=== PATIENT | female | born 1960 | race Caucasian/White ===

== ENCOUNTER 2019-12-01 17:03 | Emergency (ER) | payer MEDICAID, OTHER ==
[~2019-12-01] VITALS: Ht 172.7 cm; Wt 60.9 kg
[2019-12-01] MEDS ORDERED: ketorolac tromethamine 15mg/ml inj. IV ONE (18:55)
[2019-12-01] MEDS ORDERED: normal saline 1000ML IV soln IVB ONE (18:55)
[2019-12-01 19:43] LABS: BASOPHILS # (AUTO) 0.1 X10'3 (0-0.2); BASOPHILS % (AUTO) 1.1 % (0-1); EOSINOPHILS # (AUTO) 0.1 X10'3 (0-0.9); EOSINOPHILS % (AUTO) 1.3 % (0-6); HEMATOCRIT 38.4 % (35.0-45.0); HEMOGLOBIN 13.5 g/dl (12.0-16.0); LYMPHOCYTES # (AUTO) 0.9 X10'3 (1.1-4.8); LYMPHOCYTES % (AUTO) 16.4 % (21-51); MEAN CORPUSCULAR HGB CONC 35.2 g/dL (33.0-36.5); MEAN CORPUSCULAR VOLUME 93.8 FL (78-98); MEAN PLATELET VOLUME 6.7 FL (7.4-10.4); MONOCYTES # (AUTO) 0.8 X10'3 (0-0.9); MONOCYTES % (AUTO) 14.1 % (2-12); NEUTROPHILS # (AUTO) 3.7 X10'3 (1.8-7.7); NEUTROPHILS % (AUTO) 67.1 % (42-75); PLATELET COUNT 239 X10'3 (140-440); RED CELL DISTRIBUTION WIDTH 14.8 % (11.5-14.5); WHITE BLOOD COUNT 5.5 X10'3 (4.5-11.0)
[2019-12-01 19:55] LABS: ALANINE AMINOTRANSFERASE 73 U/L (12-78); ALBUMIN 2.6 G/DL (3.4-5.0); ALBUMIN/GLOBULIN RATIO 0.7 (1.1-1.5); ALKALINE PHOSPHATASE 156 IU/L (46-116); ANION GAP 9 (8-16); ASPARTATE AMINO TRANSFERASE 127 U/L (10-37); BILIRUBIN,TOTAL 2.7 MG/DL (0.1-1.0); BLOOD UREA NITROGEN 18 MG/DL (7-18); BUN/CREATININE RATIO 25.7 (6.6-38.0); CALCIUM 9.7 MG/DL (8.5-10.1); CHLORIDE 99 MMOL/L (99-107); GLUCOSE 118 MG/DL (70-104); POTASSIUM 4.3 MMOL/L (3.5-5.1); SODIUM 132 MMOL/L (135-145); TOTAL CARBON DIOXIDE 23.8 MMOL/L (24-32); TOTAL PROTEIN 6.4 G/DL (6.4-8.2); eGFR 85 ML/MIN
--- NOTE | 2019-12-01 20:24 | NUR ---
ATTEMPTED TO OBTAIN PT URINE SAMPLE. PT UNABLE TO VOID. WILL TRY AGAIN LATER.
[2019-12-01] MEDS ORDERED: HYDROcodone/acetaminophen 5mg/325mg tablet PO ONE (20:45)
[2019-12-01 21:16] LABS: CLARITY,URINE CLEAR (Clear); COLOR,URINE YELLOW (Yellow); GLUCOSE, URINE NEGATIVE (Neg); KETONES,URINE TRACE mg/dl (Neg); LEUKOCYTE ESTERASE ,URINE NEGATIVE (Neg); OCCULT BLOOD,URINE NEGATIVE (Neg); PH,URINE 5.5 (4.8-8.0); PROTEIN,URINE NEGATIVE (Neg); UROBILINOGEN,URINE 0.2 E.U/dL (0.2-1.0)
[2019-12-01 21:27] LABS: UA COLLECTION TYPE STRAIGHT CATH
[2019-12-01 21:28] LABS: NITRITES, URINE NEGATIVE (Neg)
[2019-12-01] MEDS ORDERED: LIDOcaine 1% w/epiNEPHrine 1:200,000 30ml vial IM ONE (21:55)
[2019-12-01 22:32] VITALS: BP 113/40
[2019-12-01] MEDS ORDERED: HYDR-3965 PO (22:52)
[2019-12-01] MEDS ORDERED: CLOT15CR5 TOP (22:52)
== END 2019-12-01 23:10 | disposition home or self-care (01) ==
LOC: ER 17:04
DX: K70.31 Alcoholic cirrhosis of liver with ascites (principal); F10.99 Alcohol use, unspecified with unspecified alcohol-induced disorder; Z79.899 Other long term (current) drug therapy; Y90.9 Presence of alcohol in blood, level not specified
CPT/HCPCS: 36415; 49083; 71045; 80053; 81003; 85025; 96374; 99285; J1885; J7030

== ENCOUNTER 2019-12-15 18:07 | Emergency (ER) | payer MEDICAID, OTHER ==
[~2019-12-15] VITALS: Ht 172.7 cm; Wt 65.0 kg
[~2019-12-15 18:07] MED LIST: CLOT15CR5 TOP
[2019-12-15] MEDS ORDERED: LIDOcaine 1% w/epiNEPHrine 1:200,000 30ml vial SQ ONE (18:50)
--- NOTE | 2019-12-15 19:54 | NUR ---
Dr Jerry did a paracentesis to right side of abdomen under ultrasound and currently first bottle is draining. The patient however has constantly complained about wanting to lay flat, not sit up a little bit, it was draining pretty good. but I layed her down.
--- NOTE | 2019-12-15 20:00 | NUR ---
Pt's is lying flat in [facility]. She is currently undergoing a paracentesis. She has stopped draining. Pt requesting norco for her pain.
--- NOTE | 2019-12-15 20:13 | NUR ---
Dr. garcia in room to see pt. Discontinued paracentesis tubing. Insertion site clear of any s/s of infection. No continuous drainage noted. Bandaid placed over site per Dr. Donald orders. Pt tolerated well. She is now sitting at highfowlers position. No s/s of respiratory distress.
[2019-12-15 20:15] VITALS: BP 108/60
[2019-12-15] MEDS ORDERED: oxyCODONE IR 5mg (immed. release) tablet PO ONE (20:20)
== END 2019-12-15 20:34 | disposition home or self-care (01) ==
LOC: ER 18:07
DX: K70.31 Alcoholic cirrhosis of liver with ascites (principal); R22.43 Localized swelling, mass and lump, lower limb, bilateral; Z79.899 Other long term (current) drug therapy; Z72.89 Other problems related to lifestyle
CPT/HCPCS: 49083; 99285

== ENCOUNTER 2020-01-06 15:08 | Inpatient (IN) | payer MEDICAID ==
[~2020-01-06] VITALS: Ht 172.7 cm; Wt 77.3 kg
[~2020-01-06 15:08] MED LIST changes: -CLOT15CR5 TOP; +CLOT30CR TOP; +FURO20TA4 PO; +LACT10SO57 PO; +LEVO25TA7 PO
[2020-01-06] MEDS ORDERED: CefTRIAXone/D5W-Rocephin 1gm 50 ML IV ONE (15:35)
[2020-01-06 15:59] LABS: BASOPHILS % (AUTO) 0.5 % (0-1); EOSINOPHILS % (AUTO) 0.6 % (0-6); HEMATOCRIT 33.2 % (35.0-45.0); HEMOGLOBIN 11.5 g/dl (12.0-16.0); LYMPHOCYTES % (AUTO) 15.4 % (21-51); MEAN CORPUSCULAR HEMOGLOBIN 32.2 PG (27.0-31.0); MEAN CORPUSCULAR HGB CONC 34.7 g/dL (33.0-36.5); MEAN CORPUSCULAR VOLUME 92.8 FL (78-98); MONOCYTES # (AUTO) 1.2 X10'3 (0-0.9); MONOCYTES % (AUTO) 19.2 % (2-12); NEUTROPHILS # (AUTO) 4.1 X10'3 (1.8-7.7); NEUTROPHILS % (AUTO) 64.3 % (42-75); PLATELET COUNT 247 X10'3 (140-440); RED BLOOD COUNT 3.57 X10'6 (4.20-5.60); RED CELL DISTRIBUTION WIDTH 14.9 % (11.5-14.5); WHITE BLOOD COUNT 6.4 X10'3 (4.5-11.0)
[2020-01-06 16:04] LABS: CLARITY,URINE CLOUDY (Clear); COLOR,URINE YELLOW (Yellow); GLUCOSE, URINE NEGATIVE (Neg); KETONES,URINE TRACE mg/dl (Neg); LEUKOCYTE ESTERASE ,URINE NEGATIVE (Neg); NITRITES, URINE NEGATIVE (Neg); OCCULT BLOOD,URINE NEGATIVE (Neg); PROTEIN,URINE NEGATIVE (Neg); UA COLLECTION TYPE STRAIGHT CATH
[2020-01-06 16:05] LABS: PARTIAL THROMBOPLASTIN TIME 30 SECONDS (22-32)
[2020-01-06 16:11] LABS: BACTERIA,URINE FEW /HPF (Neg); MUCUS STRANDS MODERATE /LPF (Neg); RBC,URINE NONE SEEN /HPF (0-2); SQUAMOUS EPITHELIAL CELL,UR FEW /LPF (FEW); URIC ACID CRYSTALS 2+ /HPF (NEGATIVE); WBC CLUMPS,URINE FEW /HPF (NEGATIVE)
[2020-01-06 16:17] LABS: ALANINE AMINOTRANSFERASE 51 U/L (12-78); ALBUMIN 2.1 G/DL (3.4-5.0); ALBUMIN/GLOBULIN RATIO 0.5 (1.1-1.5); ALKALINE PHOSPHATASE 164 IU/L (46-116); ANION GAP 6 (8-16); ASPARTATE AMINO TRANSFERASE 81 U/L (10-37); BILIRUBIN,TOTAL 2.3 MG/DL (0.1-1.0); BLOOD UREA NITROGEN 28 MG/DL (7-18); BUN/CREATININE RATIO 43.8 (6.6-38.0); CALCIUM 8.2 MG/DL (8.5-10.1); CHLORIDE 101 MMOL/L (99-107); CREATININE 0.64 MG/DL (0.40-0.90); GLUCOSE 107 MG/DL (70-104); SODIUM 130 MMOL/L (135-145); TOTAL CARBON DIOXIDE 23.4 MMOL/L (24-32); eGFR > 90 ML/MIN
[2020-01-06] MEDS ORDERED: lactulose 20gm/30ml cup PO ONE (16:25)
[2020-01-06] MEDS ORDERED: normal saline 1000ML IV soln IVB ONE (16:25)
--- NOTE | 2020-01-06 17:18 | NUR ---
Pt altered and refusing to take the lactulose. Provider informed.
--- NOTE | 2020-01-06 17:26 | NUR ---
vasc at bedside
--- NOTE | 2020-01-06 17:37 | NUR ---
Pt stepmother (Marleen) called. Pt has been living at her residence. Marleen states that she will be out of town for the next 3 weeks so the Pt cant come back to the residence. I asked Marleen if she could return when she returned from vacation. Marleen stated "No, I just cant do this anymore". Provider Tayla informed. I informed Marleen that Structural Iron[employer] may wish to contact her for details and she provided her number. Marleen [phone]
[2020-01-06] MEDS ORDERED: LEVO50TA8 PO (18:45)
[2020-01-06] MEDS ORDERED: magnesium 2GM in 50ml NS 50 ML IV PRN (19:45)
[2020-01-06] MEDS ORDERED: haloperidol 5mg tablet PO PRN ×2 (19:45)
[2020-01-06] MEDS ORDERED: haloperidol lactate 5mg/ml inj IM PRN ×3 (19:45)
[2020-01-06] MEDS ORDERED: magnesium hydroxide 30ml (MOM) UD suspension PO PRN (19:45)
[2020-01-06] MEDS ORDERED: magnesium Cl slow-release 64mg tablet PO PRN (19:45)
[2020-01-06] MEDS ORDERED: magnesium 4gm in 100ml NS 100 ML IV PRN (19:45)
[2020-01-06] MEDS ORDERED: ondansetron/PF 4mg/2ml inj IV PRN (19:45)
[2020-01-06] MEDS ORDERED: dextrose 50%-water 50ml dispensing syringe IV PRN ×3 (19:45)
[2020-01-06] MEDS ORDERED: potassium Cl 20 mEq SR tablet PO PRN ×2 (19:45)
[2020-01-06] MEDS ORDERED: potassium CL 10mEq/100ml bag 100 ML IV PRN ×2 (19:45)
[2020-01-06] MEDS ORDERED: LORazepam 2 mg/ml vial IV PRN ×4 (19:45)
[2020-01-06] MEDS ORDERED: mag hydrox/Alum hydrox/simeth 30ml oral suspension PO PRN (19:45)
[2020-01-06] MEDS ORDERED: LORazepam 1 MG tablet PO PRN (19:45)
[2020-01-06] MEDS ORDERED: thiamine 100mg/ml 2ml inj. IV ONE ×3 (19:45)
[2020-01-06] MEDS: K and/or MAG REPLACEMENT MC SCH (20:11)
[2020-01-06 22:00] VITALS: BP 127/80
--- NOTE | 2020-01-06 22:00 | NUR ---
RECEIVED PT FROM ER FOLLOWING VERBAL REPORT FROM KYA. ASSUMED CARE OF PT. PT ORIENTED TO HERSELF AND PLACE AT THIS TIME. PT REPEATEDLY STATES THAT SHE WANTS TO GO HOME AND THEN SHE WILL STATE THAT SHE WANTS TO STAY. TABS ALARM IN PLACE. MULTIPLE ABRASIONS AND OPEN AREAS TO BODY, SEE PICTURES IN THE CHART AND PHYSICAL ASSESSMENT FOR DESCRIPTION. VSS
[2020-01-07] MEDS: lactulose 20gm/30ml cup PO SCH ×3 (00:10→19:38)
--- NOTE | 2020-01-07 06:24 | NUR ---
Problems reprioritized. Patient report given, questions answered & plan of care reviewed with BEVERLY.
[2020-01-07 07:11] VITALS: BP 110/66
[2020-01-07] MEDS: K and/or MAG REPLACEMENT MC SCH ×2 (08:00→19:14)
[2020-01-07] MEDS: furosemide 40mg/4ml inj IV SCH ×2 (08:02→19:37)
[2020-01-07] MEDS: levoTHYROXINE 25mcg tablet PO SCH (08:02)
[2020-01-07] MEDS: folic acid 1mg tablet PO SCH (08:02)
[2020-01-07] MEDS: CefTRIAXone/D5W-Rocephin 1gm 50 ML IV SCH (08:02)
[2020-01-07] MEDS: thiamine 100mg tablet PO SCH (08:02)
[2020-01-07 08:47] LABS: BASOPHILS % (AUTO) 0.6 % (0-1); EOSINOPHILS # (AUTO) 0.1 X10'3 (0-0.9); EOSINOPHILS % (AUTO) 1.1 % (0-6); HEMATOCRIT 32.3 % (35.0-45.0); HEMOGLOBIN 11.5 g/dl (12.0-16.0); LYMPHOCYTES # (AUTO) 0.8 X10'3 (1.1-4.8); LYMPHOCYTES % (AUTO) 14.5 % (21-51); MEAN CORPUSCULAR HEMOGLOBIN 33.2 PG (27.0-31.0); MEAN CORPUSCULAR HGB CONC 35.6 g/dL (33.0-36.5); MEAN CORPUSCULAR VOLUME 93.4 FL (78-98); MEAN PLATELET VOLUME 6.7 FL (7.4-10.4); MONOCYTES # (AUTO) 1.1 X10'3 (0-0.9); MONOCYTES % (AUTO) 19.9 % (2-12); NEUTROPHILS # (AUTO) 3.5 X10'3 (1.8-7.7); NEUTROPHILS % (AUTO) 63.9 % (42-75); PLATELET COUNT 255 X10'3 (140-440); RED BLOOD COUNT 3.45 X10'6 (4.20-5.60); RED CELL DISTRIBUTION WIDTH 14.7 % (11.5-14.5); WHITE BLOOD COUNT 5.4 X10'3 (4.5-11.0)
[2020-01-07 10:00] VITALS: BP 110/66
[2020-01-07 10:13] LABS: PLATELET ESTIMATE NORMAL; TOTAL CELLS COUNTED 100
[2020-01-07 10:29] LABS: ALANINE AMINOTRANSFERASE 53 U/L (12-78); ALBUMIN 2.1 G/DL (3.4-5.0); ALBUMIN/GLOBULIN RATIO 0.5 (1.1-1.5); ALKALINE PHOSPHATASE 126 IU/L (46-116); ANION GAP 8 (8-16); ASPARTATE AMINO TRANSFERASE 82 U/L (10-37); BLOOD UREA NITROGEN 27 MG/DL (7-18); BUN/CREATININE RATIO 31.4 (6.6-38.0); CALCIUM 8.6 MG/DL (8.5-10.1); CHLORIDE 101 MMOL/L (99-107); CREATININE 0.86 MG/DL (0.40-0.90); ETHANOL < 0.010 GM/DL (0.0-0.010); GLUCOSE 144 MG/DL (70-104); MAGNESIUM 1.9 MG/DL (1.5-2.4); PHOSPHORUS 2.7 MG/DL (2.3-4.5); POTASSIUM 4.6 MMOL/L (3.5-5.1); SODIUM 131 MMOL/L (135-145); TOTAL CARBON DIOXIDE 22.5 MMOL/L (24-32); eGFR 67 ML/MIN
[2020-01-07 12:30] LABS: URINE AMPHETAMINE SCREEN NEGATIVE (Neg); URINE BARBITUATE SCREEN NEGATIVE (Neg); URINE BENZODIAZEPINES SCREEN NEGATIVE (Neg); URINE CANNABINOID SCREEN NEGATIVE (Neg); URINE COCAINE SCREEN NEGATIVE (Neg); URINE METHADONE SCREEN NEGATIVE (Neg); URINE OPIATE SCREEN NEGATIVE (Neg); URINE PHENCYCLIDINE SCREEN NEGATIVE (Neg)
--- NOTE | 2020-01-07 14:25 | NUR ---
Malnutrition Consult: Pt admit w/ ALOC AOx2 hx etoh abuse and recently left AMA 01/02 per MD note. Hx previous spontaneous bacterial peritonitis not compliant w/ meds and DX hepatic encephalopathy, ascites, and LE cellulitis per MD note. Pt receiving lactulose and WO reports pt refused wound assessments but only scabs abrasions present to chest/legs. Pt PO 100% clear liquids so fat this admit and PO 75% avg last week admit in addition to no significant wt loss hx present at this time. Receiving thiamin, folic for etoh. Given good PO and no wt loss hx pt does not meet minimum malnutrition criteria at this time. Will continue to monitor. Addendum: 01/07/20 at [address] Amended: Links added.
[2020-01-07] MEDS ORDERED: lactulose 20gm/30ml cup PO SCH (16:00)
[2020-01-07 18:14] VITALS: BP 116/84
[2020-01-07] MEDS: rifaximin 550mg tablet PO SCH (19:37)
--- NOTE | 2020-01-07 22:24 | NUR ---
report given to aparna Liz.
--- NOTE | 2020-01-07 22:48 | NUR ---
RECEIVED PATIENT FROM DAYNA ALEXANDER AND ASSUMED PATIENT CARE
[2020-01-08 06:00] VITALS: BP 101/64
--- NOTE | 2020-01-08 06:30 | NUR ---
REPORT GIVEN TO SHAHAB ALEXANDER
--- NOTE | 2020-01-08 07:00 | NUR ---
Patient in room ORTHO 4022A. I have received report from BENJAMIN Liz and had the opportunity to ask questions and assume patient care.
[2020-01-08 07:24] LABS: BASOPHILS # (AUTO) 0.1 X10'3 (0-0.2); BASOPHILS % (AUTO) 0.9 % (0-1); EOSINOPHILS # (AUTO) 0.1 X10'3 (0-0.9); EOSINOPHILS % (AUTO) 1.6 % (0-6); HEMATOCRIT 31.6 % (35.0-45.0); LYMPHOCYTES % (AUTO) 17.1 % (21-51); MEAN CORPUSCULAR HEMOGLOBIN 32.4 PG (27.0-31.0); MEAN CORPUSCULAR HGB CONC 34.8 g/dL (33.0-36.5); MEAN CORPUSCULAR VOLUME 93.1 FL (78-98); MEAN PLATELET VOLUME 6.8 FL (7.4-10.4); MONOCYTES # (AUTO) 1.3 X10'3 (0-0.9); MONOCYTES % (AUTO) 23.1 % (2-12); NEUTROPHILS # (AUTO) 3.3 X10'3 (1.8-7.7); NEUTROPHILS % (AUTO) 57.3 % (42-75); PLATELET COUNT 254 X10'3 (140-440); RED BLOOD COUNT 3.39 X10'6 (4.20-5.60); RED CELL DISTRIBUTION WIDTH 15.1 % (11.5-14.5); WHITE BLOOD COUNT 5.8 X10'3 (4.5-11.0)
[2020-01-08] MEDS: folic acid 1mg tablet PO SCH (07:47)
[2020-01-08] MEDS: lactulose 20gm/30ml cup PO SCH ×2 (07:47→20:13)
[2020-01-08] MEDS: levoTHYROXINE 25mcg tablet PO SCH (07:50)
[2020-01-08] MEDS: propranolol 10mg tablet PO SCH ×2 (07:51→20:00)
[2020-01-08] MEDS: thiamine 100mg tablet PO SCH (07:52)
[2020-01-08 07:53] LABS: ALANINE AMINOTRANSFERASE 53 U/L (12-78); ALBUMIN 2.1 G/DL (3.4-5.0); ALBUMIN/GLOBULIN RATIO 0.6 (1.1-1.5); ALKALINE PHOSPHATASE 139 IU/L (46-116); ANION GAP 7 (8-16); ASPARTATE AMINO TRANSFERASE 81 U/L (10-37); BILIRUBIN,TOTAL 2.1 MG/DL (0.1-1.0); BLOOD UREA NITROGEN 26 MG/DL (7-18); BUN/CREATININE RATIO 30.2 (6.6-38.0); CHLORIDE 101 MMOL/L (99-107); CREATININE 0.86 MG/DL (0.40-0.90); GLUCOSE 92 MG/DL (70-104); MAGNESIUM 1.9 MG/DL (1.5-2.4); PHOSPHORUS 3.2 MG/DL (2.3-4.5); POTASSIUM 4.2 MMOL/L (3.5-5.1); SODIUM 133 MMOL/L (135-145); TOTAL CARBON DIOXIDE 25.3 MMOL/L (24-32); TOTAL PROTEIN 5.9 G/DL (6.4-8.2); eGFR 67 ML/MIN
[2020-01-08] MEDS: spironolactone 25 MG tablet PO SCH (07:53)
[2020-01-08] MEDS: heparin, porcine 5000 units/ml vial SQ SCH ×2 (07:53→20:14)
[2020-01-08] MEDS: K and/or MAG REPLACEMENT MC SCH ×2 (08:00→18:59)
[2020-01-08] MEDS: furosemide 40mg/4ml inj IV SCH ×2 (08:00→20:13)
[2020-01-08] MEDS: CefTRIAXone/D5W-Rocephin 1gm 50 ML IV SCH (08:02)
[2020-01-08] MEDS: rifaximin 550mg tablet PO SCH ×2 (08:08→20:13)
[2020-01-08 09:29] LABS: PLATELET ESTIMATE NORMAL; TOTAL CELLS COUNTED 100
[2020-01-08 09:32] LABS: BURR CELLS FEW; SCHISTOCYTES FEW
[2020-01-08 10:00] VITALS: BP 103/74
[2020-01-08 10:25] VITALS: BP 103/74
[2020-01-08 10:45] VITALS: BP 99/68
[2020-01-08] MEDS ORDERED: normal saline 1000ml 1,000 ML IVB ONE (11:03)
[2020-01-08 12:03] LABS: GLUCOSE,BODY FLUID 136 MG/DL; LDH,BODY FLUID 38 U/L
[2020-01-08 12:09] LABS: BF RBC COUNT 68 /CU MM; BF WBC COUNT 74 /CU MM (0-1000); BFAPPEAR HAZY; BFCOLOR YELLOW; BFVOLUME 48 ML; LYMPHOCYTES,BODY FLUID 90 %; MONOCYTES,BODY FLUID 4 %; NEUTROPHILS,BODY FLUID 6 %
[2020-01-08 12:11] LABS: BF MESOTHELIAL CELLS MODERATE
[2020-01-08 12:12] LABS: TOTAL PROTEIN,BODY FLUID < 2.0 G/DL
[2020-01-08 12:13] LABS: ALBUMIN,BODY FLUID < 0.6 G/DL
[2020-01-08 18:00] VITALS: BP 105/69
--- NOTE | 2020-01-08 18:31 | NUR ---
Problems reprioritized. Patient report given, questions answered & plan of care reviewed with BENJAMIN MCINTOSH.
--- NOTE | 2020-01-08 18:36 | NUR ---
REPORT REC'D FROM BENJAMIN GUDINO.
[2020-01-08] MEDS ORDERED: LORazepam 1 MG tablet PO PRN (19:45)
[2020-01-08] MEDS ORDERED: LORazepam 2 mg/ml vial IV PRN (19:45)
[2020-01-08] MEDS: lactobacillus rhamnosus 10,000 MMU CELLS/CAPSULE PO SCH (20:13)
--- NOTE | 2020-01-08 20:25 | NUR ---
BP IS LOW 105/69 CLOSE TO PARAMETER; GIVING LASIX ALSO , SO WILL HOLD THE PROPRANOLOL UNTIL FURTHER MONITOR AT 2200.
[2020-01-08 22:00] VITALS: BP 103/74
--- NOTE | 2020-01-08 23:41 | NUR ---
PT MOVED TO RM 4021A, PT WAS REPORTING THAT HER STRAW PURSE WAS MISSING. STAFF LOOKED IN ALL DRAWERS AND BEDSIDE TABLE, CLOSET, ETC. AND COULD NOT FIND IT. STAFF CALLED SECURITY HOLD AND THERE WAS NO ITEMS IN SECURITY HOLD. ADMISSION DOCUMENTATION STATES THAT SHE HAD A WALLET WITH $208 AND A CELL PHONE. CLARIFYING WITH ANOTHER RN THAT PT DID HAVE THESE ITEMS AND REFUSED TO ALLOW THEM TO BE KEPT IN SECURITY HOLD.
--- NOTE | 2020-01-08 23:46 | NUR ---
PT ITEMS ARE FOUND, PT WAS SITTING ON HER PURSE FOR SAFE KEEPING, ALL ITEMS ARE IN THE PURSE, THE WALLET WAS OPENED IN FRONT OF HER AND TWO [employer] SERGEANT'S WITH RN COUNTED THE MONEY AND IT IS ALL THERE. PT STILL REFUSES TO ALLOW ITEMS TO BE KEPT IN SECURITY HOLD.
[2020-01-09 06:00] VITALS: BP 112/56
--- NOTE | 2020-01-09 06:34 | NUR ---
REPORT GIVEN TO BENJAMIN MARIE,.
[2020-01-09 06:48] LABS: BASOPHILS # (AUTO) 0.1 X10'3 (0-0.2); BASOPHILS % (AUTO) 1.2 % (0-1); EOSINOPHILS # (AUTO) 0.1 X10'3 (0-0.9); EOSINOPHILS % (AUTO) 1.9 % (0-6); HEMATOCRIT 30.6 % (35.0-45.0); HEMOGLOBIN 10.6 g/dl (12.0-16.0); LYMPHOCYTES % (AUTO) 17.2 % (21-51); MEAN CORPUSCULAR HEMOGLOBIN 32.4 PG (27.0-31.0); MEAN CORPUSCULAR HGB CONC 34.6 g/dL (33.0-36.5); MEAN CORPUSCULAR VOLUME 93.7 FL (78-98); MEAN PLATELET VOLUME 6.5 FL (7.4-10.4); MONOCYTES # (AUTO) 1.4 X10'3 (0-0.9); MONOCYTES % (AUTO) 24.2 % (2-12); NEUTROPHILS # (AUTO) 3.1 X10'3 (1.8-7.7); NEUTROPHILS % (AUTO) 55.5 % (42-75); PLATELET COUNT 243 X10'3 (140-440); RED BLOOD COUNT 3.26 X10'6 (4.20-5.60); RED CELL DISTRIBUTION WIDTH 15.4 % (11.5-14.5); WHITE BLOOD COUNT 5.6 X10'3 (4.5-11.0)
[2020-01-09 06:54] LABS: ALANINE AMINOTRANSFERASE 49 U/L (12-78); ALBUMIN 2.1 G/DL (3.4-5.0); ALBUMIN/GLOBULIN RATIO 0.6 (1.1-1.5); ALKALINE PHOSPHATASE 180 IU/L (46-116); ANION GAP 5 (8-16); ASPARTATE AMINO TRANSFERASE 78 U/L (10-37); BILIRUBIN,TOTAL 2.2 MG/DL (0.1-1.0); BLOOD UREA NITROGEN 28 MG/DL (7-18); BUN/CREATININE RATIO 36.8 (6.6-38.0); CHLORIDE 101 MMOL/L (99-107); CREATININE 0.76 MG/DL (0.40-0.90); GLUCOSE 92 MG/DL (70-104); MAGNESIUM 1.8 MG/DL (1.5-2.4); PHOSPHORUS 3.4 MG/DL (2.3-4.5); POTASSIUM 4.2 MMOL/L (3.5-5.1); SODIUM 131 MMOL/L (135-145); TOTAL CARBON DIOXIDE 25.5 MMOL/L (24-32); TOTAL PROTEIN 5.7 G/DL (6.4-8.2); eGFR 77 ML/MIN
[2020-01-09] MEDS: K and/or MAG REPLACEMENT MC SCH (08:00)
[2020-01-09] MEDS: CefTRIAXone/D5W-Rocephin 1gm 50 ML IV SCH (08:48)
[2020-01-09] MEDS: lactobacillus rhamnosus 10,000 MMU CELLS/CAPSULE PO SCH (08:50)
[2020-01-09] MEDS: lactulose 20gm/30ml cup PO SCH (08:50)
[2020-01-09] MEDS: folic acid 1mg tablet PO SCH (08:50)
[2020-01-09] MEDS: propranolol 10mg tablet PO SCH (08:52)
[2020-01-09] MEDS: thiamine 100mg tablet PO SCH (08:53)
[2020-01-09] MEDS: heparin, porcine 5000 units/ml vial SQ SCH (08:53)
[2020-01-09] MEDS: furosemide 40mg/4ml inj IV SCH (08:54)
[2020-01-09] MEDS: spironolactone 25 MG tablet PO SCH (08:54)
[2020-01-09] MEDS: rifaximin 550mg tablet PO SCH (08:59)
[2020-01-09] MEDS: levoTHYROXINE 25mcg tablet PO SCH (09:02)
[2020-01-09 10:00] VITALS: BP 116/39
--- NOTE | 2020-01-09 11:49 | NUR ---
Student documentation: I have reviewed all interventions, assessments performed and documented by Dalia Chatman. Student Medication Administration: For this medication-pass time frame, all medication were reviewed, dispensed, administered and documented per hospital policy by Dalia Chatman.
--- NOTE | 2020-01-09 11:59 | NUR ---
Patient in room ORTHO 4021. I have received report from and had the opportunity to ask questions and assume patient care.
--- NOTE | 2020-01-09 12:00 | NUR ---
Patient in room ORTHO 4021. I have received report from SN Gómez and had the opportunity to ask questions and assume patient care.
[2020-01-09] MEDS ORDERED: LACT10SO32 PO (13:00)
[2020-01-09] MEDS ORDERED: RIFA550T PO (13:00)
[2020-01-09] MEDS ORDERED: PROP10TA10 PO (13:00)
[2020-01-09] MEDS ORDERED: THIA50TA10 PO (13:00)
[2020-01-09] MEDS ORDERED: SPIR25TA PO (13:00)
[2020-01-09] MEDS ORDERED: LACT1CAP26 PO (13:00)
[2020-01-09] MEDS ORDERED: FOLI0.4T2 PO (13:00)
[2020-01-09] MEDS ORDERED: AMOX-580 PO (13:00)
[2020-01-09] MEDS ORDERED: FURO-150 PO (13:00)
[2020-01-09] MEDS ORDERED: ALBU8.5H8 INH (13:02)
--- NOTE | 2020-01-09 14:18 | NUR ---
told pt she is about to be discharged and pt states she's not ready, she wants to talk to social services coordinator again first. social services coordinator paged.
--- NOTE | 2020-01-09 15:39 | NUR ---
Reviewed discharge instructions and new medications with pt. Pt stated the education part of her discharge was "crap", and barely listened to discharge instructions. Pt states she needed more time to find somewhere to go after discharge, she has had all morning to find somewhere to go. She keeps trying to push back her discharge stating she has no where to go. Pt encouraged to go to [facility] if she is unable to stay with a friend or relative. RN will call elida for pt d/c.
--- NOTE | 2020-01-09 15:50 | NUR ---
yellow cab called for pt to [facility], ETA 30min-1hr.
[2020-01-10] MEDS ORDERED: LORazepam 1 MG tablet PO PRN (19:45)
[2020-01-10] MEDS ORDERED: LORazepam 2 mg/ml vial IV PRN (19:45)
== END 2020-01-09 16:15 | disposition home or self-care (01) | DRG 279 ==
LOC: ER 15:08 → ED HOLD 19:43 → ORTHO 4S 22:15
PROVIDERS: ADMIT Family Medicine; ATTEND Family Medicine
PROC: 0W9G3ZZ Drainage of Peritoneal Cavity, Percutaneous Approach (ICD-10-PCS; principal; 2020-01-08)
DX: K72.00 Acute and subacute hepatic failure without coma (principal); R18.8 Other ascites; K76.6 Portal hypertension; F10.20 Alcohol dependence, uncomplicated; K74.60 Unspecified cirrhosis of liver; L03.119 Cellulitis of unspecified part of limb; N39.0 Urinary tract infection, site not specified; Z91.19 Patient's noncompliance with other medical treatment and regimen; Z79.899 Other long term (current) drug therapy
CPT/HCPCS: 36415; 49083; 70450; 71045; 80053; 80305; 80320; 81001; 82042; 82140; 82945; 82948; 83605; 83615; 83735; 84100; 84145; 84157; 84443; 85025; 85610; 85730; 87040; 87070; 87081; 87088; 89051; 93005; 93922; 96365; 97116; 97161; 97530; 99285; G0378; J0696; J1644; J1940; J3411; J7030

== ENCOUNTER 2020-01-13 11:21 | Inpatient (IN) | payer MEDICAID ==
[~2020-01-13] VITALS: Ht 177.8 cm; Wt 64.8 kg
[~2020-01-13 11:21] MED LIST changes: +ALBU8.5H8 INH; +AMOX-580 PO; -CLOT30CR TOP; +FOLI0.4T2 PO; +FURO-150 PO; -FURO20TA4 PO; +LACT10SO32 PO; -LACT10SO57 PO; +LACT1CAP26 PO; -LEVO25TA7 PO; +LEVO50TA8 PO; +PROP10TA10 PO; +RIFA550T PO; +SPIR25TA PO; +THIA50TA10 PO
[2020-01-13 12:53] LABS: BASOPHILS # (AUTO) 0.1 X10'3 (0-0.2); BASOPHILS % (AUTO) 0.8 % (0-1); EOSINOPHILS # (AUTO) 0.1 X10'3 (0-0.9); EOSINOPHILS % (AUTO) 0.8 % (0-6); HEMATOCRIT 28.5 % (35.0-45.0); HEMOGLOBIN 9.9 g/dl (12.0-16.0); LYMPHOCYTES # (AUTO) 0.9 X10'3 (1.1-4.8); LYMPHOCYTES % (AUTO) 13.6 % (21-51); MEAN CORPUSCULAR HEMOGLOBIN 32.7 PG (27.0-31.0); MEAN CORPUSCULAR HGB CONC 34.8 g/dL (33.0-36.5); MEAN PLATELET VOLUME 6.9 FL (7.4-10.4); MONOCYTES # (AUTO) 1.1 X10'3 (0-0.9); MONOCYTES % (AUTO) 17.7 % (2-12); NEUTROPHILS # (AUTO) 4.4 X10'3 (1.8-7.7); NEUTROPHILS % (AUTO) 67.1 % (42-75); PLATELET COUNT 231 X10'3 (140-440); RED BLOOD COUNT 3.03 X10'6 (4.20-5.60); RED CELL DISTRIBUTION WIDTH 16.8 % (11.5-14.5); WHITE BLOOD COUNT 6.5 X10'3 (4.5-11.0)
[2020-01-13 13:06] LABS: ALANINE AMINOTRANSFERASE 56 U/L (12-78); ALBUMIN 2.1 G/DL (3.4-5.0); ALBUMIN/GLOBULIN RATIO 0.5 (1.1-1.5); ALKALINE PHOSPHATASE 233 IU/L (46-116); ANION GAP 6 (8-16); ASPARTATE AMINO TRANSFERASE 86 U/L (10-37); BILIRUBIN,TOTAL 1.8 MG/DL (0.1-1.0); BLOOD UREA NITROGEN 37 MG/DL (7-18); CALCIUM 8.2 MG/DL (8.5-10.1); CHLORIDE 101 MMOL/L (99-107); GLUCOSE 103 MG/DL (70-104); POTASSIUM 4.4 MMOL/L (3.5-5.1); SODIUM 132 MMOL/L (135-145); TOTAL CARBON DIOXIDE 25.1 MMOL/L (24-32); TOTAL PROTEIN 6.1 G/DL (6.4-8.2)
[2020-01-13 13:16] LABS: CREATININE 0.74 MG/DL (0.40-0.90); eGFR 80 ML/MIN
[2020-01-13 13:48] LABS: ETHANOL < 0.010 GM/DL (0.0-0.010)
[2020-01-13 14:33] LABS: CLARITY,URINE SLIGHTLY CLOUDY (Clear); COLOR,URINE YELLOW (Yellow); GLUCOSE, URINE NEGATIVE (Neg); KETONES,URINE NEGATIVE (Neg); LEUKOCYTE ESTERASE ,URINE NEGATIVE (Neg); NITRITES, URINE NEGATIVE (Neg); OCCULT BLOOD,URINE NEGATIVE (Neg); PROTEIN,URINE NEGATIVE (Neg); UROBILINOGEN,URINE 0.2 E.U/dL (0.2-1.0)
[2020-01-13 14:34] LABS: UA COLLECTION TYPE STRAIGHT CATH
[2020-01-13 14:40] LABS: BACTERIA,URINE FEW /HPF (Neg); CAL OXALATE CRYSTALS FEW /HPF (NEGATIVE); COARSE GRANULAR CAST 0-3 /LPF (NEGATIVE); MUCUS STRANDS FEW /LPF (Neg); RBC,URINE NONE SEEN /HPF (0-2); SQUAMOUS EPITHELIAL CELL,UR NONE SEEN /LPF (FEW); TRANSITIONAL EPI CELLS,URINE FEW /HPF; WBC CLUMPS,URINE FEW /HPF (NEGATIVE); YEAST MODERATE /HPF (NEGATIVE)
[2020-01-13 14:42] LABS: URINE AMPHETAMINE SCREEN NEGATIVE (Neg); URINE BARBITUATE SCREEN NEGATIVE (Neg); URINE BENZODIAZEPINES SCREEN NEGATIVE (Neg); URINE CANNABINOID SCREEN NEGATIVE (Neg); URINE COCAINE SCREEN NEGATIVE (Neg); URINE METHADONE SCREEN NEGATIVE (Neg); URINE OPIATE SCREEN NEGATIVE (Neg); URINE PHENCYCLIDINE SCREEN NEGATIVE (Neg)
[2020-01-13] MEDS ORDERED: ondansetron/PF 4mg/2ml inj IV PRN (15:20)
[2020-01-13] MEDS ORDERED: mag hydrox/Alum hydrox/simeth 30ml oral suspension PO PRN (15:20)
[2020-01-13] MEDS: normal saline 1000ml 1,000 ML IV SCH (16:00)
[2020-01-13] MEDS: lactulose 20gm/30ml cup PO SCH ×2 (16:01→20:32)
--- NOTE | 2020-01-13 16:45 | NUR ---
received report from aparna ron
[2020-01-13 17:05] VITALS: BP 115/80
[2020-01-13] MEDS ORDERED: albuterol 2.5 MG/3 ML nebule NEB PRN (17:20)
--- NOTE | 2020-01-13 18:28 | NUR ---
Gave report to BENJAMIN Ireland
[2020-01-13] MEDS: propranolol 10mg tablet PO SCH (20:32)
[2020-01-13] MEDS: rifaximin 550mg tablet PO SCH (20:32)
[2020-01-13 22:00] VITALS: BP 108/72
[2020-01-14] MEDS: normal saline 1000ml 1,000 ML IV SCH ×2 (01:19→13:05)
[2020-01-14] MEDS: lactulose 20gm/30ml cup PO SCH ×4 (01:43→19:44)
--- NOTE | 2020-01-14 06:43 | NUR ---
Problems reprioritized. Patient report given, questions answered & plan of care reviewed with BENJAMIN DAILEY.
[2020-01-14 07:07] VITALS: BP 84/49
[2020-01-14 07:15] LABS: BASOPHILS % (AUTO) 0.7 % (0-1); EOSINOPHILS # (AUTO) 0.2 X10'3 (0-0.9); EOSINOPHILS % (AUTO) 2.7 % (0-6); HEMATOCRIT 29.8 % (35.0-45.0); HEMOGLOBIN 10.3 g/dl (12.0-16.0); LYMPHOCYTES # (AUTO) 0.9 X10'3 (1.1-4.8); LYMPHOCYTES % (AUTO) 15.2 % (21-51); MEAN CORPUSCULAR HEMOGLOBIN 32.6 PG (27.0-31.0); MEAN CORPUSCULAR HGB CONC 34.5 g/dL (33.0-36.5); MEAN CORPUSCULAR VOLUME 94.4 FL (78-98); MEAN PLATELET VOLUME 7.1 FL (7.4-10.4); MONOCYTES # (AUTO) 1.2 X10'3 (0-0.9); MONOCYTES % (AUTO) 19.5 % (2-12); NEUTROPHILS # (AUTO) 3.7 X10'3 (1.8-7.7); NEUTROPHILS % (AUTO) 61.9 % (42-75); PLATELET COUNT 206 X10'3 (140-440); RED BLOOD COUNT 3.16 X10'6 (4.20-5.60)
[2020-01-14 07:20] LABS: ALANINE AMINOTRANSFERASE 50 U/L (12-78); ALBUMIN 1.8 G/DL (3.4-5.0); ALBUMIN/GLOBULIN RATIO 0.5 (1.1-1.5); ALKALINE PHOSPHATASE 148 IU/L (46-116); ANION GAP 6 (8-16); ASPARTATE AMINO TRANSFERASE 78 U/L (10-37); BILIRUBIN,TOTAL 1.7 MG/DL (0.1-1.0); BLOOD UREA NITROGEN 35 MG/DL (7-18); BUN/CREATININE RATIO 44.3 (6.6-38.0); CALCIUM 8.4 MG/DL (8.5-10.1); CHLORIDE 103 MMOL/L (99-107); CREATININE 0.79 MG/DL (0.40-0.90); GLUCOSE 109 MG/DL (70-104); POTASSIUM 4.2 MMOL/L (3.5-5.1); SODIUM 132 MMOL/L (135-145); TOTAL CARBON DIOXIDE 23.3 MMOL/L (24-32); TOTAL PROTEIN 5.4 G/DL (6.4-8.2); eGFR 74 ML/MIN
[2020-01-14] MEDS: propranolol 10mg tablet PO SCH ×2 (08:00→20:00)
[2020-01-14] MEDS: spironolactone 25 MG tablet PO SCH (08:27)
[2020-01-14] MEDS: levoTHYROXINE 25mcg tablet PO SCH (08:29)
[2020-01-14] MEDS: rifaximin 550mg tablet PO SCH ×2 (08:29→19:44)
[2020-01-14 09:18] LABS: TOTAL CELLS COUNTED 100
[2020-01-14 09:19] LABS: ANISOCYTOSIS 1+; PLATELET ESTIMATE NORMAL
[2020-01-14 11:30] VITALS: BP 111/69
[2020-01-14 12:00] VITALS: BP 96/56
[2020-01-14] MEDS ORDERED: albumin (human) 25% 100ml IV 100 ML IV ONE (12:10)
--- NOTE | 2020-01-14 16:16 | NUR ---
Mello consult: Mello 11. Pt admit w/ ALOC hx etoh abuse and hepatic encephalopathy recent admit less than one week ago. S/p paracentesis -6500ml removal. BMI 17 w/ current height 70in though majority prior admits 68in; likely true BMI 18.5 given new wt. Likely maintains stable low wt given hx though does fluctuate some w/ ascites. Pt pending WOC visible assessment this admit though recent admit 01/05 pt covered in scabs w/ no open wounds per WOC. SASKIA d/w RN regarding thiamin/folic/MVI per MD approval given etoh hx. Will continue to monitor. Addendum: 01/14/20 at [address] Amended: Links added.
[2020-01-14 18:00] VITALS: BP 111/76
--- NOTE | 2020-01-14 18:30 | NUR ---
Patient in room ORTHO 4018. I have received report from BENJAMIN DAILEY and had the opportunity to ask questions and assume patient care.
[2020-01-14] MEDS: lactobacillus rhamnosus 10,000 MMU CELLS/CAPSULE PO SCH (19:44)
[2020-01-14 22:00] VITALS: BP 95/58
[2020-01-15] MEDS: lactulose 20gm/30ml cup PO SCH ×4 (02:09→19:51)
--- NOTE | 2020-01-15 06:16 | NUR ---
Problems reprioritized. Patient report given, questions answered & plan of care reviewed with BENJAMIN DAILEY.
[2020-01-15 06:56] LABS: BASOPHILS # (AUTO) 0.1 X10'3 (0-0.2); BASOPHILS % (AUTO) 1.4 % (0-1); EOSINOPHILS # (AUTO) 0.2 X10'3 (0-0.9); EOSINOPHILS % (AUTO) 3.5 % (0-6); HEMATOCRIT 28.9 % (35.0-45.0); HEMOGLOBIN 10.2 g/dl (12.0-16.0); LYMPHOCYTES # (AUTO) 1.3 X10'3 (1.1-4.8); LYMPHOCYTES % (AUTO) 24.1 % (21-51); MEAN CORPUSCULAR HGB CONC 35.2 g/dL (33.0-36.5); MEAN CORPUSCULAR VOLUME 93.6 FL (78-98); MEAN PLATELET VOLUME 6.9 FL (7.4-10.4); MONOCYTES # (AUTO) 1.2 X10'3 (0-0.9); MONOCYTES % (AUTO) 22.6 % (2-12); NEUTROPHILS # (AUTO) 2.6 X10'3 (1.8-7.7); NEUTROPHILS % (AUTO) 48.4 % (42-75); PLATELET COUNT 188 X10'3 (140-440); RED BLOOD COUNT 3.09 X10'6 (4.20-5.60); WHITE BLOOD COUNT 5.4 X10'3 (4.5-11.0)
[2020-01-15 07:02] VITALS: BP 85/55
[2020-01-15 07:07] LABS: ALANINE AMINOTRANSFERASE 49 U/L (12-78); ALBUMIN 1.6 G/DL (3.4-5.0); ALBUMIN/GLOBULIN RATIO 0.5 (1.1-1.5); ALKALINE PHOSPHATASE 145 IU/L (46-116); ANION GAP 3 (8-16); ASPARTATE AMINO TRANSFERASE 78 U/L (10-37); BILIRUBIN,TOTAL 1.8 MG/DL (0.1-1.0); BLOOD UREA NITROGEN 27 MG/DL (7-18); CALCIUM 7.9 MG/DL (8.5-10.1); CHLORIDE 100 MMOL/L (99-107); CREATININE 0.71 MG/DL (0.40-0.90); GLUCOSE 86 MG/DL (70-104); POTASSIUM 4.2 MMOL/L (3.5-5.1); SODIUM 127 MMOL/L (135-145); eGFR 84 ML/MIN
[2020-01-15 07:45] LABS: ANISOCYTOSIS 1+; PLATELET ESTIMATE NORMAL; TOTAL CELLS COUNTED 100
[2020-01-15] MEDS: rifaximin 550mg tablet PO SCH ×2 (08:35→19:51)
[2020-01-15] MEDS: levoTHYROXINE 25mcg tablet PO SCH (08:35)
[2020-01-15] MEDS: lactobacillus rhamnosus 10,000 MMU CELLS/CAPSULE PO SCH ×2 (08:35→19:51)
[2020-01-15] MEDS: spironolactone 25 MG tablet PO SCH (08:35)
[2020-01-15] MEDS: propranolol 10mg tablet PO SCH ×2 (08:35→19:51)
[2020-01-15 10:00] VITALS: BP 119/65
[2020-01-15 18:00] VITALS: BP 93/60
[2020-01-15 21:54] VITALS: BP 96/59
[2020-01-16] MEDS: lactulose 20gm/30ml cup PO SCH ×4 (01:47→20:01)
[2020-01-16 05:48] LABS: BASOPHILS # (AUTO) 0.1 X10'3 (0-0.2); BASOPHILS % (AUTO) 1.4 % (0-1); EOSINOPHILS # (AUTO) 0.2 X10'3 (0-0.9); EOSINOPHILS % (AUTO) 3.5 % (0-6); HEMATOCRIT 30.2 % (35.0-45.0); HEMOGLOBIN 10.8 g/dl (12.0-16.0); LYMPHOCYTES # (AUTO) 1.4 X10'3 (1.1-4.8); LYMPHOCYTES % (AUTO) 21.6 % (21-51); MEAN CORPUSCULAR HEMOGLOBIN 33.5 PG (27.0-31.0); MEAN CORPUSCULAR HGB CONC 35.6 g/dL (33.0-36.5); MEAN CORPUSCULAR VOLUME 93.9 FL (78-98); MEAN PLATELET VOLUME 6.9 FL (7.4-10.4); MONOCYTES # (AUTO) 1.4 X10'3 (0-0.9); MONOCYTES % (AUTO) 22.1 % (2-12); NEUTROPHILS # (AUTO) 3.4 X10'3 (1.8-7.7); NEUTROPHILS % (AUTO) 51.4 % (42-75); PLATELET COUNT 189 X10'3 (140-440); RED BLOOD COUNT 3.22 X10'6 (4.20-5.60); WHITE BLOOD COUNT 6.6 X10'3 (4.5-11.0)
[2020-01-16 06:00] VITALS: BP 86/54
[2020-01-16 06:03] LABS: ALANINE AMINOTRANSFERASE 56 U/L (12-78); ALBUMIN 1.7 G/DL (3.4-5.0); ALBUMIN/GLOBULIN RATIO 0.5 (1.1-1.5); ALKALINE PHOSPHATASE 180 IU/L (46-116); ANION GAP 5 (8-16); ASPARTATE AMINO TRANSFERASE 87 U/L (10-37); BILIRUBIN,TOTAL 1.6 MG/DL (0.1-1.0); BLOOD UREA NITROGEN 26 MG/DL (7-18); BUN/CREATININE RATIO 35.6 (6.6-38.0); CHLORIDE 98 MMOL/L (99-107); CREATININE 0.73 MG/DL (0.40-0.90); GLUCOSE 93 MG/DL (70-104); POTASSIUM 4.4 MMOL/L (3.5-5.1); SODIUM 125 MMOL/L (135-145); TOTAL CARBON DIOXIDE 22.4 MMOL/L (24-32); TOTAL PROTEIN 5.2 G/DL (6.4-8.2); eGFR 81 ML/MIN
--- NOTE | 2020-01-16 06:13 | NUR ---
Problems reprioritized. Patient report given, questions answered & plan of care reviewed with BENJAMIN Porter.
--- NOTE | 2020-01-16 06:33 | NUR ---
Problems reprioritized. Patient report given, questions answered & plan of care reviewed with BENJAMIN Arciniega.
[2020-01-16] MEDS: propranolol 10mg tablet PO SCH ×2 (08:00→20:01)
[2020-01-16] MEDS: spironolactone 25 MG tablet PO SCH ×2 (08:30→08:49)
[2020-01-16] MEDS: lactobacillus rhamnosus 10,000 MMU CELLS/CAPSULE PO SCH ×2 (08:49→20:00)
[2020-01-16] MEDS: rifaximin 550mg tablet PO SCH ×2 (08:49→20:01)
[2020-01-16] MEDS: levoTHYROXINE 25mcg tablet PO SCH (08:49)
[2020-01-16 10:00] VITALS: BP 94/63
[2020-01-16] MEDS: magnesium hydroxide 30ml (MOM) UD suspension PO PRN (10:12)
[2020-01-16 18:00] VITALS: BP 108/72
--- NOTE | 2020-01-16 18:26 | NUR ---
Problems reprioritized. Patient report given, questions answered & plan of care reviewed with Yury ALEXANDER.
[2020-01-16 22:00] VITALS: BP 95/65
[2020-01-17] MEDS: lactulose 20gm/30ml cup PO SCH ×4 (00:49→17:40)
[2020-01-17 06:00] VITALS: BP 88/58
[2020-01-17 06:27] LABS: BASOPHILS # (AUTO) 0.1 X10'3 (0-0.2); BASOPHILS % (AUTO) 1.3 % (0-1); EOSINOPHILS # (AUTO) 0.2 X10'3 (0-0.9); EOSINOPHILS % (AUTO) 3.4 % (0-6); HEMATOCRIT 33.8 % (35.0-45.0); HEMOGLOBIN 11.9 g/dl (12.0-16.0); LYMPHOCYTES # (AUTO) 1.1 X10'3 (1.1-4.8); LYMPHOCYTES % (AUTO) 17.2 % (21-51); MEAN CORPUSCULAR HGB CONC 35.2 g/dL (33.0-36.5); MEAN CORPUSCULAR VOLUME 93.7 FL (78-98); MONOCYTES # (AUTO) 1.2 X10'3 (0-0.9); MONOCYTES % (AUTO) 19.6 % (2-12); NEUTROPHILS # (AUTO) 3.6 X10'3 (1.8-7.7); NEUTROPHILS % (AUTO) 58.5 % (42-75); PLATELET COUNT 208 X10'3 (140-440); WHITE BLOOD COUNT 6.2 X10'3 (4.5-11.0)
--- NOTE | 2020-01-17 06:33 | NUR ---
reported to days. noted pt needs placement or discharge assistance b/c she is homeless.
[2020-01-17 06:50] LABS: ALANINE AMINOTRANSFERASE 65 U/L (12-78); ALBUMIN 2.1 G/DL (3.4-5.0); ALBUMIN/GLOBULIN RATIO 0.5 (1.1-1.5); ALKALINE PHOSPHATASE 205 IU/L (46-116); ANION GAP 3 (8-16); ASPARTATE AMINO TRANSFERASE 99 U/L (10-37); BILIRUBIN,TOTAL 2.2 MG/DL (0.1-1.0); BLOOD UREA NITROGEN 26 MG/DL (7-18); BUN/CREATININE RATIO 34.7 (6.6-38.0); CALCIUM 8.1 MG/DL (8.5-10.1); CHLORIDE 95 MMOL/L (99-107); CREATININE 0.75 MG/DL (0.40-0.90); GLUCOSE 88 MG/DL (70-104); POTASSIUM 4.6 MMOL/L (3.5-5.1); SODIUM 123 MMOL/L (135-145); eGFR 79 ML/MIN
[2020-01-17 07:35] LABS: TOTAL CELLS COUNTED 100
[2020-01-17 07:36] LABS: ANISOCYTOSIS 1+; PLATELET ESTIMATE NORMAL
[2020-01-17] MEDS: lactobacillus rhamnosus 10,000 MMU CELLS/CAPSULE PO SCH ×2 (08:07→19:31)
[2020-01-17] MEDS: levoTHYROXINE 25mcg tablet PO SCH (08:07)
[2020-01-17] MEDS: spironolactone 25 MG tablet PO SCH (08:09)
[2020-01-17] MEDS: propranolol 10mg tablet PO SCH ×2 (08:09→19:31)
[2020-01-17] MEDS: rifaximin 550mg tablet PO SCH ×2 (08:11→19:31)
[2020-01-17 10:00] VITALS: BP 104/69
--- NOTE | 2020-01-17 12:41 | NUR ---
Patient refused wound care.
--- NOTE | 2020-01-17 13:49 | NUR ---
PAGER ID: [phone] MESSAGE: [id number] Richie Velazquez- Can we get a repeat ammonia level? Last time drawn was 01/12. Suze [phone]
--- NOTE | 2020-01-17 16:39 | NUR ---
Initial: Pt admit w/ hepatic encephalopathy, etoh cirrhosis, active etoh hx, hypothyroidism, ascites, and hyponatremia per MD. S/p paracentesis -6500ml removal this admit. Current BMI not accurate as pt ht 70in. but actually 68in. per prior admit hx; actual BMI 18.5. Na 132 receiving NS. Pt PO improved from admit now 75-100% avg regular diet meeting needs. LBM 01/15 receiving routine lactulose and MoM dose today. Mello now 18 w/ BLE full-thickness venous ulcers noted per WOC. Meeting needs given DX and wounds at this time given current PO. RD d/w RN regarding thiamin, folic, and MVI supplementation per MD approval given etoh hx and DX. Will continue to monitor. Rec: 1. continue regular diet 2. monitor for ONS needs pending further PO hx 3. thiamin/folic/MVI if MD approves given hx 4. routine bowel care 5. wt per rx Addendum: 01/17/20 at [address] Amended: Links added.
[2020-01-17 18:00] VITALS: BP 128/82
--- NOTE | 2020-01-17 18:17 | NUR ---
Problems reprioritized. Patient report given, questions answered & plan of care reviewed with Eve ALEXANDER.
[2020-01-17] MEDS: sodium chloride 1gm tablet PO SCH (19:31)
[2020-01-17 22:00] VITALS: BP 128/82
--- NOTE | 2020-01-17 22:51 | NUR ---
reviewed and agree with SRN assessment findings.
--- NOTE | 2020-01-17 23:35 | NUR ---
Received report from Eve ALEXANDER
--- NOTE | 2020-01-17 23:45 | NUR ---
Problems reprioritized. Patient report given, questions answered & plan of care reviewed with BENJAMIN Adhikari.
[2020-01-18] MEDS: lactulose 20gm/30ml cup PO SCH ×4 (00:12→23:59)
--- NOTE | 2020-01-18 02:17 | NUR ---
I have reviewed and agree with all interventions, assessments performed and documented by Eve ALEXANDER .
[2020-01-18 06:00] VITALS: BP 99/66
--- NOTE | 2020-01-18 06:36 | NUR ---
Problems reprioritized. Patient report given, questions answered & plan of care reviewed with Suze ALEXANDER.
[2020-01-18 06:59] LABS: BASOPHILS # (AUTO) 0.1 X10'3 (0-0.2); BASOPHILS % (AUTO) 0.9 % (0-1); EOSINOPHILS # (AUTO) 0.2 X10'3 (0-0.9); EOSINOPHILS % (AUTO) 2.4 % (0-6); HEMATOCRIT 30.2 % (35.0-45.0); HEMOGLOBIN 10.8 g/dl (12.0-16.0); LYMPHOCYTES # (AUTO) 0.9 X10'3 (1.1-4.8); LYMPHOCYTES % (AUTO) 13.6 % (21-51); MEAN CORPUSCULAR HEMOGLOBIN 33.4 PG (27.0-31.0); MEAN CORPUSCULAR HGB CONC 35.6 g/dL (33.0-36.5); MEAN CORPUSCULAR VOLUME 93.8 FL (78-98); MEAN PLATELET VOLUME 7.2 FL (7.4-10.4); MONOCYTES # (AUTO) 1.5 X10'3 (0-0.9); MONOCYTES % (AUTO) 22.7 % (2-12); NEUTROPHILS % (AUTO) 60.4 % (42-75); PLATELET COUNT 179 X10'3 (140-440); RED BLOOD COUNT 3.22 X10'6 (4.20-5.60); RED CELL DISTRIBUTION WIDTH 16.4 % (11.5-14.5); WHITE BLOOD COUNT 6.6 X10'3 (4.5-11.0)
[2020-01-18 07:00] LABS: ALANINE AMINOTRANSFERASE 60 U/L (12-78); ALBUMIN 1.9 G/DL (3.4-5.0); ALBUMIN/GLOBULIN RATIO 0.5 (1.1-1.5); ALKALINE PHOSPHATASE 198 IU/L (46-116); ANION GAP 7 (8-16); ASPARTATE AMINO TRANSFERASE 92 U/L (10-37); BILIRUBIN,TOTAL 1.9 MG/DL (0.1-1.0); BLOOD UREA NITROGEN 24 MG/DL (7-18); BUN/CREATININE RATIO 28.9 (6.6-38.0); CALCIUM 7.7 MG/DL (8.5-10.1); CHLORIDE 96 MMOL/L (99-107); CREATININE 0.83 MG/DL (0.40-0.90); GLUCOSE 112 MG/DL (70-104); POTASSIUM 4.4 MMOL/L (3.5-5.1); SODIUM 125 MMOL/L (135-145); TOTAL CARBON DIOXIDE 22.3 MMOL/L (24-32); TOTAL PROTEIN 5.5 G/DL (6.4-8.2); eGFR 70 ML/MIN
[2020-01-18] MEDS: levoTHYROXINE 25mcg tablet PO SCH (08:23)
[2020-01-18] MEDS: propranolol 10mg tablet PO SCH ×2 (08:23→19:46)
[2020-01-18] MEDS: sodium chloride 1gm tablet PO SCH ×2 (08:23→19:46)
[2020-01-18] MEDS: lactobacillus rhamnosus 10,000 MMU CELLS/CAPSULE PO SCH ×2 (08:23→19:47)
[2020-01-18] MEDS: spironolactone 25 MG tablet PO SCH (08:23)
[2020-01-18] MEDS: rifaximin 550mg tablet PO SCH ×2 (08:23→19:46)
[2020-01-18 10:00] VITALS: BP 110/72
[2020-01-18 18:00] VITALS: BP 105/70
--- NOTE | 2020-01-18 18:23 | NUR ---
Problems reprioritized. Patient report given, questions answered & plan of care reviewed with Prudence RN.
--- NOTE | 2020-01-18 18:29 | NUR ---
Patient in room ORTHO 4020. I have received report from Cj ALEXANDER and had the opportunity to ask questions and assume patient care. Patient is having dinner and shows no sign of distress.
[2020-01-18] MEDS: furosemide 40mg/4ml inj IV SCH (19:46)
[2020-01-18 22:00] VITALS: BP 99/61
[2020-01-19 06:00] VITALS: BP 94/59
--- NOTE | 2020-01-19 06:18 | NUR ---
Problems reprioritized. Patient report given, questions answered & plan of care reviewed with ALEJANDRA ALEXANDER.
--- NOTE | 2020-01-19 06:27 | NUR ---
Problems reprioritized. Patient report given, questions answered & plan of care reviewed with Yuly ALEXANDER.
--- NOTE | 2020-01-19 06:30 | NUR ---
Patient in room ORTHO 4020. I have received report from Bryanna ALEXANDER and had the opportunity to ask questions and assume patient care.
[2020-01-19] MEDS: rifaximin 550mg tablet PO SCH ×2 (08:00→20:19)
[2020-01-19] MEDS: propranolol 10mg tablet PO SCH ×2 (08:00→20:00)
[2020-01-19] MEDS: spironolactone 25 MG tablet PO SCH ×2 (08:30→08:32)
[2020-01-19] MEDS: levoTHYROXINE 25mcg tablet PO SCH (08:32)
[2020-01-19] MEDS: lactobacillus rhamnosus 10,000 MMU CELLS/CAPSULE PO SCH ×2 (08:32→20:19)
[2020-01-19] MEDS: sodium chloride 1gm tablet PO SCH ×2 (08:32→20:19)
[2020-01-19] MEDS: lactulose 20gm/30ml cup PO SCH ×2 (08:34→17:18)
[2020-01-19] MEDS: furosemide 40mg/4ml inj IV SCH ×2 (08:48→20:19)
[2020-01-19 10:00] VITALS: BP 100/64
[2020-01-19 10:46] LABS: BASOPHILS # (AUTO) 0.1 X10'3 (0-0.2); BASOPHILS % (AUTO) 1.4 % (0-1); EOSINOPHILS # (AUTO) 0.2 X10'3 (0-0.9); EOSINOPHILS % (AUTO) 2.6 % (0-6); HEMATOCRIT 33.1 % (35.0-45.0); HEMOGLOBIN 11.7 g/dl (12.0-16.0); LYMPHOCYTES % (AUTO) 14.4 % (21-51); MEAN CORPUSCULAR HEMOGLOBIN 33.6 PG (27.0-31.0); MEAN CORPUSCULAR HGB CONC 35.3 g/dL (33.0-36.5); MEAN CORPUSCULAR VOLUME 95.2 FL (78-98); MEAN PLATELET VOLUME 7.5 FL (7.4-10.4); MONOCYTES # (AUTO) 1.8 X10'3 (0-0.9); MONOCYTES % (AUTO) 25.1 % (2-12); NEUTROPHILS # (AUTO) 3.9 X10'3 (1.8-7.7); NEUTROPHILS % (AUTO) 56.5 % (42-75); PLATELET COUNT 193 X10'3 (140-440); RED BLOOD COUNT 3.48 X10'6 (4.20-5.60); RED CELL DISTRIBUTION WIDTH 17.2 % (11.5-14.5)
[2020-01-19 11:01] LABS: ALBUMIN 2.1 G/DL (3.4-5.0); ANION GAP 5 (8-16); BLOOD UREA NITROGEN 24 MG/DL (7-18); CALCIUM 8.3 MG/DL (8.5-10.1); CHLORIDE 98 MMOL/L (99-107); GLUCOSE 79 MG/DL (70-104); POTASSIUM 4.2 MMOL/L (3.5-5.1); SODIUM 128 MMOL/L (135-145); TOTAL CARBON DIOXIDE 24.8 MMOL/L (24-32); eGFR 73 ML/MIN
[2020-01-19] MEDS: multivitamins, therapeutics tablet PO SCH (11:59)
[2020-01-19] MEDS: folic acid 1mg tablet PO SCH (11:59)
[2020-01-19] MEDS: thiamine 100mg tablet PO SCH ×2 (12:00→20:19)
[2020-01-19 18:00] VITALS: BP 104/65
--- NOTE | 2020-01-19 18:00 | NUR ---
Patient in room ORTHO 4020. I have received report from Yuly ALEXANDER and had the opportunity to ask questions and assume patient care.
--- NOTE | 2020-01-19 18:27 | NUR ---
Problems reprioritized. Patient report given, questions answered & plan of care reviewed with Lisa ALEXANDER.
--- NOTE | 2020-01-19 20:30 | NUR ---
Patients BP is 108/69 gave 40mg of lasix per order, held off on the propranolol and will re-evaluate.
[2020-01-19 22:00] VITALS: BP 105/77
--- NOTE | 2020-01-19 22:00 | NUR ---
Re-evaluated patients BP it was 86/56 with a map of 66. Held the propranolol per ordered parameters.
--- NOTE | 2020-01-20 04:22 | NUR ---
2300 PATIENT UPSET THAT HOUSEKEEPING IS CLEANING THE BED NEXT TO HER, AND IS WANTING TO SLEEP. REMINDED PATIENT SHE HAS LACTULOSE AT MIDNIGHT, PATIENT STATED, "I DON'T WANT IT IF I'M ASLEEP, JUST LEAVE ME ALONE". PRIOR DOSE GIVEN A LITTLE LATE AND WOULD HAVE BEEN A COUPLE HOURS ONLY. PATIENT HAS NOT WOKEN UP AND WILL BE GIVEN A DOSE AT 0800 SO HAVE NON ADMINISTERED THE "MIDNIGHT" DOSE.
[2020-01-20 06:00] VITALS: BP 102/70
--- NOTE | 2020-01-20 06:21 | NUR ---
Problems reprioritized. Patient report given, questions answered & plan of care reviewed with Carolann ALEXANDER.
[2020-01-20] MEDS: lactulose 20gm/30ml cup PO SCH ×4 (08:00→22:27)
[2020-01-20] MEDS: propranolol 10mg tablet PO SCH ×2 (08:00→19:44)
[2020-01-20] MEDS: rifaximin 550mg tablet PO SCH ×2 (08:00→19:44)
[2020-01-20] MEDS: spironolactone 25 MG tablet PO SCH (08:30)
[2020-01-20] MEDS: furosemide 40mg/4ml inj IV SCH ×2 (09:27→19:43)
[2020-01-20] MEDS: lactobacillus rhamnosus 10,000 MMU CELLS/CAPSULE PO SCH ×2 (09:28→19:43)
[2020-01-20] MEDS: folic acid 1mg tablet PO SCH (09:28)
[2020-01-20] MEDS: sodium chloride 1gm tablet PO SCH ×2 (09:28→19:44)
[2020-01-20] MEDS: levoTHYROXINE 25mcg tablet PO SCH (09:28)
[2020-01-20] MEDS: multivitamins, therapeutics tablet PO SCH (09:29)
[2020-01-20] MEDS: thiamine 100mg tablet PO SCH ×2 (09:29→19:44)
[2020-01-20 10:00] VITALS: BP 110/75
[2020-01-20] MEDS: acetaminophen 325mg tablet PO PRN (17:01)
[2020-01-20 18:40] VITALS: BP 122/76
--- NOTE | 2020-01-21 06:24 | NUR ---
Problems reprioritized. Patient report given, questions answered & plan of care reviewed with DANYA. Addendum: 01/21/20 at 0625 by Gianni Breaux RN Amended: Links added.
--- NOTE | 2020-01-21 06:25 | NUR ---
Problems reprioritized. Patient report given, questions answered & plan of care reviewed with DANYA. Addendum: 01/21/20 at 0626 by Gianni Breaux RN Amended: Links added.
[2020-01-21] MEDS: rifaximin 550mg tablet PO SCH ×2 (08:00→19:35)
[2020-01-21] MEDS: propranolol 10mg tablet PO SCH ×2 (08:00→19:35)
[2020-01-21] MEDS: lactulose 20gm/30ml cup PO SCH ×3 (08:00→23:38)
[2020-01-21] MEDS: spironolactone 25 MG tablet PO SCH (08:30)
[2020-01-21] MEDS: lactobacillus rhamnosus 10,000 MMU CELLS/CAPSULE PO SCH ×2 (08:56→19:35)
[2020-01-21] MEDS: furosemide 40mg/4ml inj IV SCH ×2 (08:56→19:36)
[2020-01-21] MEDS: folic acid 1mg tablet PO SCH (08:56)
[2020-01-21] MEDS: thiamine 100mg tablet PO SCH ×2 (08:57→19:35)
[2020-01-21] MEDS: multivitamins, therapeutics tablet PO SCH (08:57)
[2020-01-21] MEDS: sodium chloride 1gm tablet PO SCH ×2 (08:57→19:35)
[2020-01-21] MEDS: levoTHYROXINE 25mcg tablet PO SCH (08:57)
[2020-01-21 10:00] VITALS: BP 111/70
--- NOTE | 2020-01-21 15:30 | NUR ---
Pt offered shower today as it is not recorded that pt has had a shower since admission. Pt refused to take a shower with MIRIAM Beckford offering earlier today. Will continue to monitor pt and pass on to incoming shifts.
[2020-01-21 18:00] VITALS: BP 113/74
[2020-01-21 22:00] VITALS: BP_SYST 102; BP_SYST 113; BP_DIAS 63; BP_DIAS 74
[2020-01-22] VITALS (7 sets, daily range): BP systolic 93–107; BP diastolic 56–73
--- NOTE | 2020-01-22 06:17 | NUR ---
REPORT GIVEN TO BENJAMIN SALINAS.
--- NOTE | 2020-01-22 06:35 | NUR ---
Patient in room ORTHO 4020. I have received report from BENJAMIN Ledezma and had the opportunity to ask questions and assume patient care.
[2020-01-22 06:45] LABS: BASOPHILS # (AUTO) 0.1 X10'3 (0-0.2); BASOPHILS % (AUTO) 1.3 % (0-1); EOSINOPHILS # (AUTO) 0.1 X10'3 (0-0.9); EOSINOPHILS % (AUTO) 2.2 % (0-6); HEMOGLOBIN 11.1 g/dl (12.0-16.0); LYMPHOCYTES # (AUTO) 1.2 X10'3 (1.1-4.8); LYMPHOCYTES % (AUTO) 17.7 % (21-51); MEAN CORPUSCULAR HEMOGLOBIN 32.8 PG (27.0-31.0); MEAN CORPUSCULAR HGB CONC 34.7 g/dL (33.0-36.5); MEAN CORPUSCULAR VOLUME 94.7 FL (78-98); MEAN PLATELET VOLUME 8.1 FL (7.4-10.4); MONOCYTES # (AUTO) 1.3 X10'3 (0-0.9); MONOCYTES % (AUTO) 19.9 % (2-12); NEUTROPHILS # (AUTO) 3.9 X10'3 (1.8-7.7); NEUTROPHILS % (AUTO) 58.9 % (42-75); PLATELET COUNT 142 X10'3 (140-440); RED BLOOD COUNT 3.38 X10'6 (4.20-5.60); WHITE BLOOD COUNT 6.6 X10'3 (4.5-11.0)
[2020-01-22] MEDS: acetaminophen 325mg tablet PO PRN (06:53)
[2020-01-22 06:54] LABS: ALANINE AMINOTRANSFERASE 75 U/L (12-78); ALBUMIN/GLOBULIN RATIO 0.5 (1.1-1.5); ALKALINE PHOSPHATASE 248 IU/L (46-116); ANION GAP 2 (8-16); ASPARTATE AMINO TRANSFERASE 125 U/L (10-37); BILIRUBIN,TOTAL 1.6 MG/DL (0.1-1.0); BLOOD UREA NITROGEN 35 MG/DL (7-18); BUN/CREATININE RATIO 37.2 (6.6-38.0); CALCIUM 7.9 MG/DL (8.5-10.1); CHLORIDE 98 MMOL/L (99-107); CREATININE 0.94 MG/DL (0.40-0.90); GLUCOSE 88 MG/DL (70-104); SODIUM 126 MMOL/L (135-145); TOTAL CARBON DIOXIDE 26.3 MMOL/L (24-32); TOTAL PROTEIN 5.9 G/DL (6.4-8.2); eGFR 61 ML/MIN
[2020-01-22 07:00] LABS: POTASSIUM 4.3 MMOL/L (3.5-5.1)
[2020-01-22 07:25] LABS: ANISOCYTOSIS 1+; PLATELET ESTIMATE NORMAL; TOTAL CELLS COUNTED 100
[2020-01-22] MEDS: spironolactone 25 MG tablet PO SCH (08:00)
[2020-01-22] MEDS: propranolol 10mg tablet PO SCH ×2 (08:00→20:01)
[2020-01-22] MEDS: sodium chloride 1gm tablet PO SCH ×2 (08:01→20:01)
[2020-01-22] MEDS: levoTHYROXINE 25mcg tablet PO SCH (08:01)
[2020-01-22] MEDS: thiamine 100mg tablet PO SCH ×2 (08:01→20:01)
[2020-01-22] MEDS: furosemide 40mg/4ml inj IV SCH ×2 (08:01→20:01)
[2020-01-22] MEDS: folic acid 1mg tablet PO SCH (08:01)
[2020-01-22] MEDS: lactulose 20gm/30ml cup PO SCH ×3 (08:01→23:41)
[2020-01-22] MEDS: rifaximin 550mg tablet PO SCH ×2 (08:01→20:02)
[2020-01-22] MEDS: lactobacillus rhamnosus 10,000 MMU CELLS/CAPSULE PO SCH ×2 (08:01→20:01)
[2020-01-22] MEDS: multivitamins, therapeutics tablet PO SCH (08:01)
[2020-01-22] MEDS: LORazepam 0.5 MG tablet PO PRN ×2 (11:00→20:16)
[2020-01-22] MEDS: HYDROcodone/acetaminophen 5mg/325mg tablet PO PRN (11:01)
[2020-01-22] MEDS ORDERED: albumin (human) 25% 100 ML IV solution IV ONE (12:00)
[2020-01-22] MEDS: sodium chloride 3% IV.soln 500 ML IV SCH (13:25)
--- NOTE | 2020-01-22 13:40 | NUR ---
[facility] REF: [id number] LOT: [id number] EXP: 06/06/2020
--- NOTE | 2020-01-22 15:41 | NUR ---
Reassessment: Pt PO 75-100% avg regular meals meeting needs. LBM 01/20. Na 126 s/p 7600ml paracentesis. No nutrition concerns at this time. Will continue to monitor. Rec: 1. continue regular diet 2. thiamin/folic/MVI if MD approves given hx 3. routine bowel care 4. wt per rx Addendum: 01/22/20 at [address] Amended: Links added.
[2020-01-22] MEDS: benzonatate 100mg capsule PO PRN (17:17)
--- NOTE | 2020-01-22 18:06 | NUR ---
Problems reprioritized. Patient report given, questions answered & plan of care reviewed with BENJAMIN Ledezma.
[2020-01-23 05:49] VITALS: BP 93/58
[2020-01-23 06:00] VITALS: BP 93/58
--- NOTE | 2020-01-23 06:32 | NUR ---
REPORT GIVEN TO BENJAMIN FARRAR.
[2020-01-23] MEDS: spironolactone 25 MG tablet PO SCH (07:39)
[2020-01-23] MEDS: sodium chloride 1gm tablet PO SCH ×2 (07:39→21:03)
[2020-01-23] MEDS: lactobacillus rhamnosus 10,000 MMU CELLS/CAPSULE PO SCH ×2 (07:39→20:04)
[2020-01-23] MEDS: rifaximin 550mg tablet PO SCH ×2 (07:39→20:05)
[2020-01-23] MEDS: lactulose 20gm/30ml cup PO SCH ×3 (07:39→21:03)
[2020-01-23] MEDS: multivitamins, therapeutics tablet PO SCH (07:39)
[2020-01-23] MEDS: levoTHYROXINE 25mcg tablet PO SCH (07:39)
[2020-01-23] MEDS: folic acid 1mg tablet PO SCH (07:39)
[2020-01-23] MEDS: thiamine 100mg tablet PO SCH ×2 (07:39→20:04)
[2020-01-23] MEDS: sodium chloride 3% IV.soln 500 ML IV SCH (07:40)
[2020-01-23] MEDS: benzonatate 100mg capsule PO PRN ×2 (07:50→20:03)
[2020-01-23] MEDS: furosemide 40mg/4ml inj IV SCH ×2 (08:00→20:04)
[2020-01-23] MEDS: propranolol 10mg tablet PO SCH ×2 (08:00→20:04)
[2020-01-23 10:00] VITALS: BP 90/63
[2020-01-23 12:11] LABS: BASOPHILS # (AUTO) 0.1 X10'3 (0-0.2); BASOPHILS % (AUTO) 0.8 % (0-1); EOSINOPHILS # (AUTO) 0.1 X10'3 (0-0.9); EOSINOPHILS % (AUTO) 2.2 % (0-6); HEMATOCRIT 28.9 % (35.0-45.0); HEMOGLOBIN 10.3 g/dl (12.0-16.0); LYMPHOCYTES # (AUTO) 0.7 X10'3 (1.1-4.8); LYMPHOCYTES % (AUTO) 10.8 % (21-51); MEAN CORPUSCULAR HGB CONC 35.6 g/dL (33.0-36.5); MEAN CORPUSCULAR VOLUME 95.6 FL (78-98); MEAN PLATELET VOLUME 6.5 FL (7.4-10.4); MONOCYTES # (AUTO) 0.9 X10'3 (0-0.9); MONOCYTES % (AUTO) 14.3 % (2-12); NEUTROPHILS # (AUTO) 4.8 X10'3 (1.8-7.7); NEUTROPHILS % (AUTO) 71.9 % (42-75); PLATELET COUNT 170 X10'3 (140-440); RED BLOOD COUNT 3.02 X10'6 (4.20-5.60); RED CELL DISTRIBUTION WIDTH 17.3 % (11.5-14.5); WHITE BLOOD COUNT 6.6 X10'3 (4.5-11.0)
[2020-01-23 12:21] LABS: ALANINE AMINOTRANSFERASE 58 U/L (12-78); ALBUMIN 1.9 G/DL (3.4-5.0); ALBUMIN/GLOBULIN RATIO 0.6 (1.1-1.5); ALKALINE PHOSPHATASE 212 IU/L (46-116); ANION GAP 7 (8-16); ASPARTATE AMINO TRANSFERASE 105 U/L (10-37); BILIRUBIN,TOTAL 1.8 MG/DL (0.1-1.0); BLOOD UREA NITROGEN 32 MG/DL (7-18); CALCIUM 7.1 MG/DL (8.5-10.1); CHLORIDE 114 MMOL/L (99-107); CREATININE 0.82 MG/DL (0.40-0.90); GLUCOSE 108 MG/DL (70-104); POTASSIUM 4.1 MMOL/L (3.5-5.1); SODIUM 146 MMOL/L (135-145); TOTAL CARBON DIOXIDE 25.2 MMOL/L (24-32); TOTAL PROTEIN 5.3 G/DL (6.4-8.2); eGFR 71 ML/MIN
[2020-01-23] MEDS: ceFAZolin/D5W- 1GM premix 50 ML IV SCH ×2 (15:50→23:24)
[2020-01-23 18:00] VITALS: BP 142/90
--- NOTE | 2020-01-23 18:11 | NUR ---
Problems reprioritized. Patient report given, questions answered & plan of care reviewed with Yury ALEXANDER.
[2020-01-23 22:00] VITALS: BP 94/57
[2020-01-24 06:00] VITALS: BP 97/67
--- NOTE | 2020-01-24 06:37 | NUR ---
repoted to days. noted pt resting w/o distress
[2020-01-24] MEDS: furosemide 40mg/4ml inj IV SCH ×2 (08:00→19:31)
[2020-01-24] MEDS: propranolol 10mg tablet PO SCH ×2 (08:00→19:31)
[2020-01-24] MEDS: sodium chloride 1gm tablet PO SCH ×4 (08:17→19:41)
[2020-01-24] MEDS: rifaximin 550mg tablet PO SCH ×2 (08:17→19:35)
[2020-01-24] MEDS: folic acid 1mg tablet PO SCH (08:17)
[2020-01-24] MEDS: lactulose 20gm/30ml cup PO SCH ×2 (08:17→16:07)
[2020-01-24] MEDS: thiamine 100mg tablet PO SCH ×2 (08:17→19:31)
[2020-01-24] MEDS: multivitamins, therapeutics tablet PO SCH (08:17)
[2020-01-24] MEDS: lactobacillus rhamnosus 10,000 MMU CELLS/CAPSULE PO SCH ×2 (08:17→19:31)
[2020-01-24] MEDS: levoTHYROXINE 25mcg tablet PO SCH (08:17)
[2020-01-24] MEDS: benzonatate 100mg capsule PO PRN ×2 (08:17→19:31)
[2020-01-24] MEDS: spironolactone 25 MG tablet PO SCH (08:17)
[2020-01-24] MEDS: ceFAZolin/D5W- 1GM premix 50 ML IV SCH ×2 (08:22→16:07)
[2020-01-24 10:00] VITALS: BP 93/68
[2020-01-24 18:00] VITALS: BP 117/76
--- NOTE | 2020-01-24 18:13 | NUR ---
Problems reprioritized. Patient report given, questions answered & plan of care reviewed with Yury ALEXANDER.
[2020-01-24] MEDS: HYDROcodone/acetaminophen 5mg/325mg tablet PO PRN (19:47)
[2020-01-24 21:33] VITALS: BP 101/62
[2020-01-25] MEDS: ceFAZolin/D5W- 1GM premix 50 ML IV SCH ×4 (00:12→23:40)
[2020-01-25 06:00] VITALS: BP 105/71
--- NOTE | 2020-01-25 06:12 | NUR ---
Problems reprioritized. Patient report given, questions answered & plan of care reviewed with Suze ALEXANDER.
[2020-01-25] MEDS: multivitamins, therapeutics tablet PO SCH (07:36)
[2020-01-25] MEDS: rifaximin 550mg tablet PO SCH ×2 (07:36→19:54)
[2020-01-25] MEDS: lactulose 20gm/30ml cup PO SCH ×4 (07:36→23:40)
[2020-01-25] MEDS: folic acid 1mg tablet PO SCH (07:36)
[2020-01-25] MEDS: lactobacillus rhamnosus 10,000 MMU CELLS/CAPSULE PO SCH ×2 (07:36→19:54)
[2020-01-25] MEDS: levoTHYROXINE 25mcg tablet PO SCH (07:37)
[2020-01-25] MEDS: spironolactone 25 MG tablet PO SCH (07:37)
[2020-01-25] MEDS: sodium chloride 1gm tablet PO SCH ×3 (07:37→19:54)
[2020-01-25] MEDS: furosemide 40mg/4ml inj IV SCH ×2 (07:46→11:10)
[2020-01-25] MEDS: propranolol 10mg tablet PO SCH ×2 (07:47→19:54)
[2020-01-25] MEDS: thiamine 100mg tablet PO SCH ×2 (07:47→19:54)
[2020-01-25 09:12] VITALS: BP 113/81
[2020-01-25] MEDS: HYDROcodone/acetaminophen 5mg/325mg tablet PO PRN (17:06)
[2020-01-25 18:00] VITALS: BP 127/81
--- NOTE | 2020-01-25 18:13 | NUR ---
Problems reprioritized. Patient report given, questions answered & plan of care reviewed with Eve ALEXANDER.
[2020-01-25 22:00] VITALS: BP 99/62
[2020-01-26] MEDS: HYDROcodone/acetaminophen 5mg/325mg tablet PO PRN ×4 (03:34→23:59)
[2020-01-26 05:55] LABS: BASOPHILS # (AUTO) 0.1 X10'3 (0-0.2); BASOPHILS % (AUTO) 1.3 % (0-1); EOSINOPHILS # (AUTO) 0.2 X10'3 (0-0.9); HEMATOCRIT 30.4 % (35.0-45.0); HEMOGLOBIN 10.6 g/dl (12.0-16.0); LYMPHOCYTES % (AUTO) 16.8 % (21-51); MEAN CORPUSCULAR HGB CONC 34.8 g/dL (33.0-36.5); MEAN PLATELET VOLUME 7.7 FL (7.4-10.4); MONOCYTES # (AUTO) 1.1 X10'3 (0-0.9); MONOCYTES % (AUTO) 18.1 % (2-12); NEUTROPHILS # (AUTO) 3.7 X10'3 (1.8-7.7); NEUTROPHILS % (AUTO) 60.8 % (42-75); PLATELET COUNT 151 X10'3 (140-440); RED CELL DISTRIBUTION WIDTH 17.5 % (11.5-14.5)
[2020-01-26 06:00] VITALS: BP 108/73
[2020-01-26 06:08] LABS: ALANINE AMINOTRANSFERASE 52 U/L (12-78); ALBUMIN 1.9 G/DL (3.4-5.0); ALBUMIN/GLOBULIN RATIO 0.5 (1.1-1.5); ALKALINE PHOSPHATASE 207 IU/L (46-116); ANION GAP 6 (8-16); ASPARTATE AMINO TRANSFERASE 102 U/L (10-37); BILIRUBIN,TOTAL 1.3 MG/DL (0.1-1.0); BLOOD UREA NITROGEN 34 MG/DL (7-18); BUN/CREATININE RATIO 39.1 (6.6-38.0); CALCIUM 7.9 MG/DL (8.5-10.1); CHLORIDE 103 MMOL/L (99-107); CREATININE 0.87 MG/DL (0.40-0.90); GLUCOSE 86 MG/DL (70-104); POTASSIUM 4.5 MMOL/L (3.5-5.1); SODIUM 134 MMOL/L (135-145); TOTAL CARBON DIOXIDE 25.2 MMOL/L (24-32); TOTAL PROTEIN 5.5 G/DL (6.4-8.2); eGFR 66 ML/MIN
--- NOTE | 2020-01-26 06:17 | NUR ---
Problems reprioritized. Patient report given, questions answered & plan of care reviewed with BENJAMIN Jimenez.
--- NOTE | 2020-01-26 06:29 | NUR ---
Patient in room ORTHO 4020. I have received report from Eve Jenkins and had the opportunity to ask questions and assume patient care.
[2020-01-26 07:09] LABS: PLATELET ESTIMATE NORMAL; TOTAL CELLS COUNTED 100
[2020-01-26 07:10] LABS: ANISOCYTOSIS 1+
[2020-01-26] MEDS: ceFAZolin/D5W- 1GM premix 50 ML IV SCH ×3 (07:25→23:25)
[2020-01-26] MEDS: furosemide 40mg/4ml inj IV SCH ×2 (07:25→20:03)
[2020-01-26] MEDS: folic acid 1mg tablet PO SCH (07:26)
[2020-01-26] MEDS: thiamine 100mg tablet PO SCH ×2 (07:26→20:03)
[2020-01-26] MEDS: multivitamins, therapeutics tablet PO SCH (07:26)
[2020-01-26] MEDS: sodium chloride 1gm tablet PO SCH ×3 (07:26→20:02)
[2020-01-26] MEDS: levoTHYROXINE 25mcg tablet PO SCH (07:26)
[2020-01-26] MEDS: propranolol 10mg tablet PO SCH ×2 (07:26→20:02)
[2020-01-26] MEDS: lactobacillus rhamnosus 10,000 MMU CELLS/CAPSULE PO SCH ×2 (07:26→20:02)
[2020-01-26] MEDS: lactulose 20gm/30ml cup PO SCH ×3 (07:26→23:25)
[2020-01-26] MEDS: rifaximin 550mg tablet PO SCH ×2 (07:40→20:03)
[2020-01-26] MEDS: spironolactone 25 MG tablet PO SCH (08:03)
[2020-01-26] MEDS: benzonatate 100mg capsule PO PRN ×2 (08:06→16:30)
[2020-01-26 10:00] VITALS: BP 95/64
[2020-01-26 18:00] VITALS: BP 125/87
--- NOTE | 2020-01-26 18:13 | NUR ---
Problems reprioritized. Patient report given, questions answered & plan of care reviewed with Eve Maria
[2020-01-26 22:00] VITALS: BP 93/64
[2020-01-27] MEDS: magnesium hydroxide 30ml (MOM) UD suspension PO PRN (00:26)
--- NOTE | 2020-01-27 00:40 | NUR ---
educated patient to use hat while in the bathroom, so we could measure I & O, patient dumped it and threw it in the trash can. unable to get accurate measurement.
[2020-01-27 06:00] VITALS: BP 88/51
--- NOTE | 2020-01-27 06:30 | NUR ---
Patient in room ORTHO 4020. I have received report from Eve Jenkins RN and had the opportunity to ask questions and assume patient care.
--- NOTE | 2020-01-27 07:56 | NUR ---
Took photos of woundsd bilateral lower extremities
[2020-01-27 10:00] VITALS: BP 93/61
[2020-01-27] MEDS: sodium chloride 1gm tablet PO SCH ×3 (10:01→20:23)
[2020-01-27] MEDS: multivitamins, therapeutics tablet PO SCH (10:02)
[2020-01-27] MEDS: levoTHYROXINE 25mcg tablet PO SCH (10:02)
[2020-01-27] MEDS: folic acid 1mg tablet PO SCH (10:02)
[2020-01-27] MEDS: lactobacillus rhamnosus 10,000 MMU CELLS/CAPSULE PO SCH ×2 (10:02→20:18)
[2020-01-27] MEDS: thiamine 100mg tablet PO SCH ×2 (10:02→20:18)
[2020-01-27] MEDS: ceFAZolin/D5W- 1GM premix 50 ML IV SCH ×3 (10:03→23:45)
[2020-01-27] MEDS: propranolol 10mg tablet PO SCH ×2 (10:05→20:18)
[2020-01-27] MEDS: lactulose 20gm/30ml cup PO SCH ×3 (10:05→23:45)
[2020-01-27] MEDS: rifaximin 550mg tablet PO SCH ×2 (10:05→20:18)
[2020-01-27] MEDS: spironolactone 25 MG tablet PO SCH (10:05)
[2020-01-27] MEDS: furosemide 40mg/4ml inj IV SCH ×2 (10:06→20:18)
[2020-01-27] MEDS: HYDROcodone/acetaminophen 5mg/325mg tablet PO PRN (16:49)
[2020-01-27 18:00] VITALS: BP 98/64
--- NOTE | 2020-01-27 18:30 | NUR ---
Problems reprioritized. Patient report given, questions answered & plan of care reviewed with BENJAMIN Macias.
[2020-01-27 20:20] VITALS: BP 106/68
[2020-01-27 22:00] VITALS: BP 96/62
[2020-01-28 06:00] VITALS: BP 102/65
[2020-01-28 06:32] LABS: ALANINE AMINOTRANSFERASE 42 U/L (12-78); ALBUMIN/GLOBULIN RATIO 0.5 (1.1-1.5); ALKALINE PHOSPHATASE 208 IU/L (46-116); ANION GAP 6 (8-16); ASPARTATE AMINO TRANSFERASE 109 U/L (10-37); BILIRUBIN,TOTAL 1.7 MG/DL (0.1-1.0); BLOOD UREA NITROGEN 39 MG/DL (7-18); BUN/CREATININE RATIO 38.2 (6.6-38.0); CHLORIDE 98 MMOL/L (99-107); CREATININE 1.02 MG/DL (0.40-0.90); GLUCOSE 118 MG/DL (70-104); POTASSIUM 4.7 MMOL/L (3.5-5.1); SODIUM 129 MMOL/L (135-145); TOTAL PROTEIN 5.7 G/DL (6.4-8.2); eGFR 55 ML/MIN
[2020-01-28 06:44] LABS: BASOPHILS # (AUTO) 0.1 X10'3 (0-0.2); EOSINOPHILS # (AUTO) 0.1 X10'3 (0-0.9); EOSINOPHILS % (AUTO) 1.9 % (0-6); HEMATOCRIT 30.6 % (35.0-45.0); HEMOGLOBIN 10.7 g/dl (12.0-16.0); LYMPHOCYTES % (AUTO) 17.6 % (21-51); MEAN CORPUSCULAR HEMOGLOBIN 33.1 PG (27.0-31.0); MEAN CORPUSCULAR HGB CONC 34.8 g/dL (33.0-36.5); MEAN CORPUSCULAR VOLUME 95.2 FL (78-98); MEAN PLATELET VOLUME 8.1 FL (7.4-10.4); MONOCYTES # (AUTO) 0.9 X10'3 (0-0.9); MONOCYTES % (AUTO) 14.6 % (2-12); NEUTROPHILS # (AUTO) 3.8 X10'3 (1.8-7.7); NEUTROPHILS % (AUTO) 64.9 % (42-75); PLATELET COUNT 149 X10'3 (140-440); RED BLOOD COUNT 3.22 X10'6 (4.20-5.60); RED CELL DISTRIBUTION WIDTH 17.3 % (11.5-14.5); WHITE BLOOD COUNT 5.9 X10'3 (4.5-11.0)
[2020-01-28] MEDS: propranolol 10mg tablet PO SCH ×2 (08:00→20:00)
[2020-01-28] MEDS: ceFAZolin/D5W- 1GM premix 50 ML IV SCH ×3 (09:51→23:31)
[2020-01-28 10:00] VITALS: BP 113/57
[2020-01-28] MEDS: lactulose 20gm/30ml cup PO SCH ×3 (10:11→23:32)
[2020-01-28] MEDS: lactobacillus rhamnosus 10,000 MMU CELLS/CAPSULE PO SCH ×2 (10:11→21:20)
[2020-01-28] MEDS: furosemide 40mg/4ml inj IV SCH ×2 (10:11→21:21)
[2020-01-28] MEDS: thiamine 100mg tablet PO SCH ×2 (10:12→21:22)
[2020-01-28] MEDS: levoTHYROXINE 25mcg tablet PO SCH (10:12)
[2020-01-28] MEDS: spironolactone 25 MG tablet PO SCH (10:12)
[2020-01-28] MEDS: rifaximin 550mg tablet PO SCH ×2 (10:12→21:22)
[2020-01-28] MEDS: sodium chloride 1gm tablet PO SCH ×3 (10:12→21:20)
[2020-01-28] MEDS: folic acid 1mg tablet PO SCH (10:12)
[2020-01-28] MEDS: multivitamins, therapeutics tablet PO SCH (10:12)
[2020-01-28] MEDS: benzonatate 100mg capsule PO PRN (10:23)
[2020-01-28] MEDS: HYDROcodone/acetaminophen 5mg/325mg tablet PO PRN ×3 (10:41→21:20)
[2020-01-28 18:00] VITALS: BP 89/49
[2020-01-28 22:00] VITALS: BP 92/60
[2020-01-29 06:00] VITALS: BP 90/56
[2020-01-29 07:38] LABS: ALANINE AMINOTRANSFERASE 36 U/L (12-78); ALBUMIN 1.8 G/DL (3.4-5.0); ALBUMIN/GLOBULIN RATIO 0.5 (1.1-1.5); ALKALINE PHOSPHATASE 237 IU/L (46-116); ANION GAP 5 (8-16); ASPARTATE AMINO TRANSFERASE 94 U/L (10-37); BLOOD UREA NITROGEN 41 MG/DL (7-18); BUN/CREATININE RATIO 41.8 (6.6-38.0); CHLORIDE 101 MMOL/L (99-107); CREATININE 0.98 MG/DL (0.40-0.90); GLUCOSE 90 MG/DL (70-104); POTASSIUM 4.3 MMOL/L (3.5-5.1); SODIUM 132 MMOL/L (135-145); TOTAL CARBON DIOXIDE 26.5 MMOL/L (24-32); TOTAL PROTEIN 5.2 G/DL (6.4-8.2); eGFR 58 ML/MIN
[2020-01-29 07:51] LABS: BASOPHILS # (AUTO) 0.1 X10'3 (0-0.2); BASOPHILS % (AUTO) 1.2 % (0-1); EOSINOPHILS # (AUTO) 0.2 X10'3 (0-0.9); EOSINOPHILS % (AUTO) 3.3 % (0-6); HEMATOCRIT 29.6 % (35.0-45.0); HEMOGLOBIN 10.3 g/dl (12.0-16.0); LYMPHOCYTES # (AUTO) 1.1 X10'3 (1.1-4.8); LYMPHOCYTES % (AUTO) 17.9 % (21-51); MEAN CORPUSCULAR HEMOGLOBIN 33.4 PG (27.0-31.0); MEAN CORPUSCULAR HGB CONC 34.9 g/dL (33.0-36.5); MEAN CORPUSCULAR VOLUME 95.6 FL (78-98); MEAN PLATELET VOLUME 7.2 FL (7.4-10.4); MONOCYTES # (AUTO) 0.8 X10'3 (0-0.9); MONOCYTES % (AUTO) 13.9 % (2-12); NEUTROPHILS # (AUTO) 3.8 X10'3 (1.8-7.7); NEUTROPHILS % (AUTO) 63.7 % (42-75); PLATELET COUNT 152 X10'3 (140-440); RED CELL DISTRIBUTION WIDTH 17.3 % (11.5-14.5); WHITE BLOOD COUNT 5.9 X10'3 (4.5-11.0)
[2020-01-29] MEDS: propranolol 10mg tablet PO SCH ×2 (08:00→20:00)
[2020-01-29] MEDS: ceFAZolin/D5W- 1GM premix 50 ML IV SCH ×2 (08:43→15:36)
[2020-01-29] MEDS: lactulose 20gm/30ml cup PO SCH ×2 (08:47→15:36)
[2020-01-29] MEDS: furosemide 40mg/4ml inj IV SCH ×2 (08:47→20:00)
[2020-01-29] MEDS: lactobacillus rhamnosus 10,000 MMU CELLS/CAPSULE PO SCH ×2 (08:47→20:08)
[2020-01-29] MEDS: thiamine 100mg tablet PO SCH ×2 (08:48→20:08)
[2020-01-29] MEDS: folic acid 1mg tablet PO SCH (08:48)
[2020-01-29] MEDS: sodium chloride 1gm tablet PO SCH ×3 (08:48→20:07)
[2020-01-29] MEDS: spironolactone 25 MG tablet PO SCH (08:48)
[2020-01-29] MEDS: multivitamins, therapeutics tablet PO SCH (08:48)
[2020-01-29] MEDS: levoTHYROXINE 25mcg tablet PO SCH (08:48)
[2020-01-29] MEDS: benzonatate 100mg capsule PO PRN (08:52)
[2020-01-29] MEDS: HYDROcodone/acetaminophen 5mg/325mg tablet PO PRN ×3 (08:53→20:08)
[2020-01-29] MEDS: rifaximin 550mg tablet PO SCH ×2 (08:53→20:07)
[2020-01-29 09:20] VITALS: BP 103/66
[2020-01-29 10:00] VITALS: BP 101/61
[2020-01-29 10:08] VITALS: BP 101/64
[2020-01-29] MEDS ORDERED: albumin (human) 25% 100 ML IV solution IV ONE (10:10)
[2020-01-29] MEDS ORDERED: FURO-150 PO (11:06)
--- NOTE | 2020-01-29 12:05 | NUR ---
Reassessment: Pt PO 75-100% avg regular meals meeting needs. LBM 01/27. Current BMI not accurate as true ht hx 68in; decreased newer scaled wt and increased new BMI? Current BMI 23; subject to fluid status changes w/ paracentesis. No nutrition concerns at this time. Will continue to monitor. Rec: 1. continue regular diet 2. thiamin/folic/MVI if MD approves given hx 3. routine bowel care 4. wt per rx Addendum: 01/29/20 at [address] Amended: Links added.
[2020-01-29 18:00] VITALS: BP 92/63
--- NOTE | 2020-01-29 18:10 | NUR ---
Patient report received from BENJAMIN Vuong. Assumed patient care.
--- NOTE | 2020-01-29 18:31 | NUR ---
Problems reprioritized. Patient report given, questions answered & plan of care reviewed with BENJAMIN Ring.
[2020-01-29 20:12] VITALS: BP 96/63
--- NOTE | 2020-01-30 00:13 | NUR ---
Patient in room ORTHO 4020. I have received report from BENJAMIN Ring and had the opportunity to ask questions and assume patient care.
[2020-01-30] MEDS: ceFAZolin/D5W- 1GM premix 50 ML IV SCH ×4 (00:19→23:53)
[2020-01-30 04:14] LABS: EOSINOPHILS # (AUTO) 0.2 X10'3 (0-0.9); HEMOGLOBIN 10.6 g/dl (12.0-16.0); MEAN CORPUSCULAR HGB CONC 35.2 g/dL (33.0-36.5); MONOCYTES # (AUTO) 0.7 X10'3 (0-0.9)
[2020-01-30 04:16] LABS: BASOPHILS % (AUTO) 0.2 % (0-1); EOSINOPHILS % (AUTO) 3.1 % (0-6); HEMATOCRIT 30.1 % (35.0-45.0); LYMPHOCYTES # (AUTO) 0.9 X10'3 (1.1-4.8); LYMPHOCYTES % (AUTO) 15.9 % (21-51); MEAN CORPUSCULAR HEMOGLOBIN 33.6 PG (27.0-31.0); MEAN CORPUSCULAR VOLUME 95.4 FL (78-98); MEAN PLATELET VOLUME 6.4 FL (7.4-10.4); MONOCYTES % (AUTO) 12.3 % (2-12); NEUTROPHILS # (AUTO) 3.9 X10'3 (1.8-7.7); NEUTROPHILS % (AUTO) 68.5 % (42-75); PLATELET COUNT 156 X10'3 (140-440); RED BLOOD COUNT 3.15 X10'6 (4.20-5.60); RED CELL DISTRIBUTION WIDTH 17.4 % (11.5-14.5); WHITE BLOOD COUNT 5.7 X10'3 (4.5-11.0)
[2020-01-30] MEDS: HYDROcodone/acetaminophen 5mg/325mg tablet PO PRN ×4 (04:22→23:55)
[2020-01-30 04:26] LABS: ALANINE AMINOTRANSFERASE 32 U/L (12-78); ALBUMIN 2.1 G/DL (3.4-5.0); ALBUMIN/GLOBULIN RATIO 0.6 (1.1-1.5); ALKALINE PHOSPHATASE 241 IU/L (46-116); ANION GAP 2 (8-16); ASPARTATE AMINO TRANSFERASE 93 U/L (10-37); BILIRUBIN,TOTAL 1.3 MG/DL (0.1-1.0); BLOOD UREA NITROGEN 36 MG/DL (7-18); BUN/CREATININE RATIO 40.9 (6.6-38.0); CALCIUM 8.2 MG/DL (8.5-10.1); CHLORIDE 102 MMOL/L (99-107); CREATININE 0.88 MG/DL (0.40-0.90); GLUCOSE 89 MG/DL (70-104); POTASSIUM 4.4 MMOL/L (3.5-5.1); SODIUM 131 MMOL/L (135-145); TOTAL CARBON DIOXIDE 26.8 MMOL/L (24-32); TOTAL PROTEIN 5.5 G/DL (6.4-8.2); eGFR 65 ML/MIN
[2020-01-30 04:53] LABS: TOTAL CELLS COUNTED 100
[2020-01-30 04:54] LABS: ANISOCYTOSIS 1+; PLATELET ESTIMATE NORMAL
[2020-01-30 06:00] VITALS: BP 97/64
--- NOTE | 2020-01-30 06:19 | NUR ---
Problems reprioritized. Patient report given, questions answered & plan of care reviewed with BENJAMIN Thorpe.
--- NOTE | 2020-01-30 06:56 | NUR ---
Patient in room ORTHO 4020. I have received report from Carolann ALEXANDER and had the opportunity to ask questions and assume patient care.
--- NOTE | 2020-01-30 07:00 | NUR ---
Wound care team treated today Addendum: 01/30/20 at 1107 by Ivania Miller RN Amended: Links added.
--- NOTE | 2020-01-30 07:00 | NUR ---
pt up ad colette Addendum: 01/30/20 at 1107 by Ivania Miller RN Amended: Links added.
--- NOTE | 2020-01-30 08:00 | NUR ---
completed by wound care Addendum: 01/30/20 at 1110 by Ivania Miller RN Amended: Links added.
--- NOTE | 2020-01-30 08:00 | NUR ---
wound care treated today Addendum: 01/30/20 at 1030 by Ivania Miller RN Amended: Links added.
[2020-01-30] MEDS: lactobacillus rhamnosus 10,000 MMU CELLS/CAPSULE PO SCH ×2 (08:57→20:08)
[2020-01-30] MEDS: rifaximin 550mg tablet PO SCH ×2 (08:57→20:09)
[2020-01-30] MEDS: propranolol 10mg tablet PO SCH ×2 (08:57→20:08)
[2020-01-30] MEDS: sodium chloride 1gm tablet PO SCH ×3 (08:57→20:09)
[2020-01-30] MEDS: folic acid 1mg tablet PO SCH (08:57)
[2020-01-30] MEDS: levoTHYROXINE 25mcg tablet PO SCH (08:58)
[2020-01-30] MEDS: thiamine 100mg tablet PO SCH ×2 (08:58→20:09)
[2020-01-30] MEDS: spironolactone 25 MG tablet PO SCH (08:58)
[2020-01-30] MEDS: multivitamins, therapeutics tablet PO SCH (08:58)
[2020-01-30] MEDS: furosemide 40mg/4ml inj IV SCH ×2 (09:01→20:08)
[2020-01-30] MEDS: lactulose 20gm/30ml cup PO SCH ×4 (09:10→23:53)
--- NOTE | 2020-01-30 10:29 | NUR ---
completed by wound care
[2020-01-30 11:00] VITALS: BP 104/67
--- NOTE | 2020-01-30 17:07 | NUR ---
PAGER ID: [phone] MESSAGE: [phone] Caroline Quiroz would like to know if you want a standing order for a Para Q Tuesday. Ila [phone]
[2020-01-30 18:00] VITALS: BP 103/63
--- NOTE | 2020-01-30 18:19 | NUR ---
Problems reprioritized. Patient report given, questions answered & plan of care reviewed with Zeynep ALEXANDER.
--- NOTE | 2020-01-30 18:22 | NUR ---
Problems reprioritized. Patient report given, questions answered & plan of care reviewed with Zeynep ALEXANDER
--- NOTE | 2020-01-30 18:41 | NUR ---
Patient in room ORTHO 4017. I have received report from Ila ALEXANDER and Lisa ALEXANDER and had the opportunity to ask questions and assume patient care.
[2020-01-30] MEDS: benzonatate 100mg capsule PO PRN (20:10)
[2020-01-30] MEDS: LORazepam 0.5 MG tablet PO PRN (20:10)
[2020-01-30 22:00] VITALS: BP 108/66
[2020-01-31 06:00] VITALS: BP 94/53
--- NOTE | 2020-01-31 06:17 | NUR ---
Problems reprioritized. Patient report given, questions answered & plan of care reviewed with Catarina ALEXANDER and Charlotte ALEXANDER.
--- NOTE | 2020-01-31 06:30 | NUR ---
received report from aparna hirsch
[2020-01-31] MEDS: propranolol 10mg tablet PO SCH ×2 (08:00→19:37)
[2020-01-31] MEDS: furosemide 40mg/4ml inj IV SCH ×2 (08:00→19:37)
--- NOTE | 2020-01-31 08:00 | NUR ---
Wound care to eval pt to wrap Addendum: 01/31/20 at 1634 by Ivania Miller RN Amended: Links added.
[2020-01-31] MEDS: levoTHYROXINE 25mcg tablet PO SCH (08:13)
[2020-01-31] MEDS: sodium chloride 1gm tablet PO SCH ×3 (08:13→19:35)
[2020-01-31] MEDS: lactobacillus rhamnosus 10,000 MMU CELLS/CAPSULE PO SCH ×2 (08:14→19:35)
[2020-01-31] MEDS: thiamine 100mg tablet PO SCH ×2 (08:14→19:34)
[2020-01-31] MEDS: folic acid 1mg tablet PO SCH (08:14)
[2020-01-31] MEDS: multivitamins, therapeutics tablet PO SCH (08:15)
[2020-01-31] MEDS: rifaximin 550mg tablet PO SCH ×2 (08:16→19:35)
[2020-01-31] MEDS: lactulose 20gm/30ml cup PO SCH ×2 (08:17→15:40)
[2020-01-31] MEDS: benzonatate 100mg capsule PO PRN (08:22)
[2020-01-31] MEDS: spironolactone 25 MG tablet PO SCH (08:26)
[2020-01-31] MEDS: HYDROcodone/acetaminophen 5mg/325mg tablet PO PRN ×3 (08:29→19:35)
[2020-01-31] MEDS: ceFAZolin/D5W- 1GM premix 50 ML IV SCH ×2 (08:29→15:40)
[2020-01-31 10:00] VITALS: BP 83/53
--- NOTE | 2020-01-31 13:19 | NUR ---
GAVE REPORT TO BENJAMIN ROBERTS
--- NOTE | 2020-01-31 13:20 | NUR ---
Patient in room ORTHO 4017. I have received report from LILIYA ALEXANDER and had the opportunity to ask questions and assume patient care.
[2020-01-31 18:00] VITALS: BP 91/50
--- NOTE | 2020-01-31 18:26 | NUR ---
Problems reprioritized. Patient report given, questions answered & plan of care reviewed with Eve Jenkins RN.
--- NOTE | 2020-01-31 21:24 | NUR ---
Patient is noncompliant with measuring the i/o's ; she will throw the hats out of the toilet so we can't measure the urine output.
[2020-01-31 22:00] VITALS: BP 94/59
[2020-02-01] MEDS: ceFAZolin/D5W- 1GM premix 50 ML IV SCH ×4 (00:07→23:48)
[2020-02-01] MEDS: lactulose 20gm/30ml cup PO SCH ×4 (00:08→23:48)
[2020-02-01 06:00] VITALS: BP 85/54
--- NOTE | 2020-02-01 06:05 | NUR ---
Patient in room ORTHO 4017. I have received report from LALY ALEXANDER and had the opportunity to ask questions and assume patient care.
--- NOTE | 2020-02-01 06:11 | NUR ---
Problems reprioritized. Patient report given, questions answered & plan of care reviewed with BENJAMIN Ceja.
[2020-02-01] MEDS: HYDROcodone/acetaminophen 5mg/325mg tablet PO PRN ×3 (06:36→19:52)
[2020-02-01] MEDS: multivitamins, therapeutics tablet PO SCH (07:20)
[2020-02-01] MEDS: folic acid 1mg tablet PO SCH (07:20)
[2020-02-01] MEDS: levoTHYROXINE 25mcg tablet PO SCH (07:20)
[2020-02-01] MEDS: lactobacillus rhamnosus 10,000 MMU CELLS/CAPSULE PO SCH ×2 (07:20→19:48)
[2020-02-01] MEDS: sodium chloride 1gm tablet PO SCH ×3 (07:20→19:48)
[2020-02-01] MEDS: thiamine 100mg tablet PO SCH ×2 (07:20→19:48)
[2020-02-01] MEDS: rifaximin 550mg tablet PO SCH ×2 (07:20→21:36)
[2020-02-01] MEDS: propranolol 10mg tablet PO SCH ×2 (07:21→19:40)
[2020-02-01] MEDS: spironolactone 25 MG tablet PO SCH (07:21)
[2020-02-01] MEDS: furosemide 40mg/4ml inj IV SCH ×2 (07:22→19:40)
[2020-02-01] MEDS: benzonatate 100mg capsule PO PRN (07:25)
[2020-02-01 13:59] LABS: BASOPHILS # (AUTO) 0.1 X10'3 (0-0.2); BASOPHILS % (AUTO) 1.3 % (0-1); EOSINOPHILS # (AUTO) 0.2 X10'3 (0-0.9); EOSINOPHILS % (AUTO) 3.8 % (0-6); HEMATOCRIT 28.8 % (35.0-45.0); HEMOGLOBIN 10.2 g/dl (12.0-16.0); LYMPHOCYTES # (AUTO) 0.9 X10'3 (1.1-4.8); LYMPHOCYTES % (AUTO) 14.9 % (21-51); MEAN CORPUSCULAR HEMOGLOBIN 33.8 PG (27.0-31.0); MEAN CORPUSCULAR HGB CONC 35.4 g/dL (33.0-36.5); MEAN CORPUSCULAR VOLUME 95.6 FL (78-98); MEAN PLATELET VOLUME 6.5 FL (7.4-10.4); MONOCYTES # (AUTO) 0.7 X10'3 (0-0.9); MONOCYTES % (AUTO) 12.3 % (2-12); NEUTROPHILS % (AUTO) 67.7 % (42-75); PLATELET COUNT 167 X10'3 (140-440); RED BLOOD COUNT 3.01 X10'6 (4.20-5.60); RED CELL DISTRIBUTION WIDTH 17.5 % (11.5-14.5)
[2020-02-01 14:10] LABS: ANION GAP 4 (8-16); BLOOD UREA NITROGEN 38 MG/DL (7-18); BUN/CREATININE RATIO 37.6 (6.6-38.0); CALCIUM 8.4 MG/DL (8.5-10.1); CHLORIDE 103 MMOL/L (99-107); CREATININE 1.01 MG/DL (0.40-0.90); GLUCOSE 112 MG/DL (70-104); POTASSIUM 4.7 MMOL/L (3.5-5.1); SODIUM 134 MMOL/L (135-145); TOTAL CARBON DIOXIDE 27.4 MMOL/L (24-32); eGFR 56 ML/MIN
[2020-02-01 18:00] VITALS: BP 98/62
--- NOTE | 2020-02-01 18:20 | NUR ---
Problems reprioritized. Patient report given, questions answered & plan of care reviewed with LALY ALEXANDER.
[2020-02-01 22:00] VITALS: BP 91/50
[2020-02-02 06:10] VITALS: BP 78/50
--- NOTE | 2020-02-02 06:27 | NUR ---
Problems reprioritized. Patient report given, questions answered & plan of care reviewed with BENJAMIN Cortez.
--- NOTE | 2020-02-02 06:30 | NUR ---
Patient in room ORTHO 4017. I have received report from Eve ALEXANDER and had the opportunity to ask questions and assume patient care.
[2020-02-02] MEDS: propranolol 10mg tablet PO SCH ×2 (08:00→20:00)
[2020-02-02] MEDS: levoTHYROXINE 25mcg tablet PO SCH (08:00)
[2020-02-02] MEDS: furosemide 40mg/4ml inj IV SCH ×2 (08:00→20:00)
[2020-02-02] MEDS: spironolactone 25 MG tablet PO SCH (08:30)
[2020-02-02] MEDS: lactulose 20gm/30ml cup PO SCH ×2 (09:09→15:51)
[2020-02-02] MEDS: ceFAZolin/D5W- 1GM premix 50 ML IV SCH ×2 (09:12→15:51)
[2020-02-02] MEDS: multivitamins, therapeutics tablet PO SCH (09:16)
[2020-02-02] MEDS: rifaximin 550mg tablet PO SCH ×2 (09:17→20:04)
[2020-02-02] MEDS: lactobacillus rhamnosus 10,000 MMU CELLS/CAPSULE PO SCH ×2 (09:17→19:55)
[2020-02-02] MEDS: sodium chloride 1gm tablet PO SCH ×3 (09:17→19:55)
[2020-02-02] MEDS: thiamine 100mg tablet PO SCH ×2 (09:17→19:55)
[2020-02-02] MEDS: folic acid 1mg tablet PO SCH (09:20)
[2020-02-02] MEDS: HYDROcodone/acetaminophen 5mg/325mg tablet PO PRN ×2 (09:27→20:53)
[2020-02-02 10:00] VITALS: BP 101/61
--- NOTE | 2020-02-02 13:19 | NUR ---
Dr. George notified of patient BP being low. Dr. George okay to hold BP meds and diuretics. Patient aslo refused sodium tablet, because she says she doesn't need it, and refused levothyroxine because she already ate.
[2020-02-02 18:00] VITALS: BP 114/68
[2020-02-02] MEDS: magnesium hydroxide 30ml (MOM) UD suspension PO PRN (18:05)
--- NOTE | 2020-02-02 18:35 | NUR ---
Problems reprioritized. Patient report given, questions answered & plan of care reviewed with Nae ALEXANDER.
--- NOTE | 2020-02-02 18:39 | NUR ---
Patient in room ORTHO 4017. I have received report from Dana ALEXANDER and had the opportunity to ask questions and assume patient care.
[2020-02-02 22:00] VITALS: BP 110/72
[2020-02-03] MEDS: lactulose 20gm/30ml cup PO SCH ×3 (00:08→15:46)
[2020-02-03 06:00] VITALS: BP 111/78
--- NOTE | 2020-02-03 06:16 | NUR ---
Problems reprioritized. Patient report given, questions answered & plan of care reviewed with Carolann ALEXANDER.
[2020-02-03] MEDS: furosemide 40mg/4ml inj IV SCH ×2 (09:11→20:00)
[2020-02-03] MEDS: lactobacillus rhamnosus 10,000 MMU CELLS/CAPSULE PO SCH ×2 (09:11→20:12)
[2020-02-03] MEDS: thiamine 100mg tablet PO SCH ×2 (09:12→20:13)
[2020-02-03] MEDS: propranolol 10mg tablet PO SCH ×2 (09:12→20:00)
[2020-02-03] MEDS: multivitamins, therapeutics tablet PO SCH (09:13)
[2020-02-03] MEDS: levoTHYROXINE 25mcg tablet PO SCH (09:13)
[2020-02-03] MEDS: sodium chloride 1gm tablet PO SCH ×3 (09:13→20:13)
[2020-02-03] MEDS: spironolactone 25 MG tablet PO SCH (09:13)
[2020-02-03] MEDS: folic acid 1mg tablet PO SCH (09:13)
[2020-02-03] MEDS: magnesium hydroxide 30ml (MOM) UD suspension PO PRN (09:20)
[2020-02-03] MEDS: HYDROcodone/acetaminophen 5mg/325mg tablet PO PRN (09:37)
[2020-02-03] MEDS: rifaximin 550mg tablet PO SCH ×2 (09:40→20:13)
[2020-02-03 10:00] VITALS: BP 91/58
[2020-02-03] MEDS ORDERED: diphenhydrAMINE 25mg capsule PO PRN (13:35)
[2020-02-03] MEDS: traMADol 50MG tablet PO PRN ×2 (13:51→19:22)
[2020-02-03] MEDS: simethicone 125mg capsule PO SCH ×2 (13:51→20:13)
[2020-02-03 18:00] VITALS: BP 82/47
--- NOTE | 2020-02-03 19:16 | NUR ---
Problems reprioritized. Patient report given, questions answered & plan of care reviewed with BENJAMIN Cunningham.
--- NOTE | 2020-02-03 19:18 | NUR ---
Problems reprioritized. Patient report given, questions answered & plan of care reviewed with BENJAMIN Cunningham.
[2020-02-03 21:00] VITALS: BP 89/51
[2020-02-03 22:00] VITALS: BP 80/48
[2020-02-04] MEDS: lactulose 20gm/30ml cup PO SCH ×4 (00:50→22:51)
[2020-02-04] MEDS: simethicone 125mg capsule PO SCH ×2 (02:00→07:44)
[2020-02-04 06:00] VITALS: BP 84/52
[2020-02-04] MEDS: furosemide 40mg/4ml inj IV SCH ×2 (07:42→20:26)
[2020-02-04] MEDS: folic acid 1mg tablet PO SCH (07:43)
[2020-02-04] MEDS: lactobacillus rhamnosus 10,000 MMU CELLS/CAPSULE PO SCH ×2 (07:43→20:26)
[2020-02-04] MEDS: propranolol 10mg tablet PO SCH ×2 (07:44→20:00)
[2020-02-04] MEDS: sodium chloride 1gm tablet PO SCH ×3 (07:45→20:26)
[2020-02-04] MEDS: magnesium hydroxide 30ml (MOM) UD suspension PO SCH (07:45)
[2020-02-04] MEDS: multivitamins, therapeutics tablet PO SCH (07:46)
[2020-02-04] MEDS: spironolactone 25 MG tablet PO SCH (07:46)
[2020-02-04] MEDS: levoTHYROXINE 25mcg tablet PO SCH (07:46)
[2020-02-04] MEDS: thiamine 100mg tablet PO SCH ×2 (07:46→20:26)
[2020-02-04] MEDS: traMADol 50MG tablet PO PRN ×4 (07:48→22:39)
[2020-02-04] MEDS: rifaximin 550mg tablet PO SCH ×2 (07:49→20:26)
[2020-02-04 10:00] VITALS: BP 95/44
[2020-02-04] MEDS ORDERED: simethicone 125mg capsule PO PRN (14:00)
[2020-02-04 18:00] VITALS: BP 91/54
--- NOTE | 2020-02-04 18:57 | NUR ---
Problems reprioritized. Patient report given, questions answered & plan of care reviewed with BENJAMIN Ireland.
[2020-02-04 22:00] VITALS: BP 87/61
[2020-02-05 06:00] VITALS: BP 86/53
--- NOTE | 2020-02-05 06:37 | NUR ---
Problems reprioritized. Patient report given, questions answered & plan of care reviewed with BENJAMIN HAGAN.
[2020-02-05] MEDS: lactulose 20gm/30ml cup PO SCH (08:00)
[2020-02-05] MEDS: thiamine 100mg tablet PO SCH (08:00)
[2020-02-05] MEDS: rifaximin 550mg tablet PO SCH (08:00)
[2020-02-05] MEDS: folic acid 1mg tablet PO SCH (08:00)
[2020-02-05] MEDS: furosemide 40mg/4ml inj IV SCH (08:00)
[2020-02-05] MEDS: propranolol 10mg tablet PO SCH (08:00)
[2020-02-05] MEDS: magnesium hydroxide 30ml (MOM) UD suspension PO SCH (08:00)
[2020-02-05] MEDS: lactobacillus rhamnosus 10,000 MMU CELLS/CAPSULE PO SCH (08:00)
[2020-02-05] MEDS: levoTHYROXINE 25mcg tablet PO SCH (08:00)
[2020-02-05] MEDS: multivitamins, therapeutics tablet PO SCH (08:00)
[2020-02-05] MEDS: sodium chloride 1gm tablet PO SCH (08:00)
[2020-02-05] MEDS ORDERED: spironolactone 25 MG tablet PO SCH (08:30)
[2020-02-05] MEDS ORDERED: SPIR100T PO (09:20)
[2020-02-05] MEDS ORDERED: FURO40TA4 PO (09:25)
[2020-02-05] MEDS ORDERED: LACT10SO32 PO (09:25)
[2020-02-05] MEDS ORDERED: PROP10TA10 PO (09:25)
[2020-02-05] MEDS ORDERED: folic acid tablet PO (09:25)
[2020-02-05] MEDS ORDERED: TRAM50TA2 PO (09:27)
[2020-02-05 10:00] VITALS: BP 84/52
--- NOTE | 2020-02-05 11:48 | NUR ---
Reassessment: Pt s/p third paracentesis w/ -6L removal per MD. PO slight decrease to 50% avg past 2 days but overall 75% avg past 7 days meeting needs. Receiving caesar salad each lunch and fish when available as well as no pork per pt food preferences. LBM 02/01 receiving lactulose. No nutrition concerns at this time. Will continue to monitor. Rec: 1. continue regular diet 2. thiamin/folic/MVI if MD approves given hx 3. routine bowel care 4. wt per rx Addendum: 02/05/20 at [address] Amended: Links added.
[2020-02-05] MEDS ORDERED: SPIR25TA PO (13:25)
[2020-02-05] MEDS ORDERED: FURO10VI51 IV (13:25)
[2020-02-05] MEDS: traMADol 50MG tablet PO PRN (14:30)
--- NOTE | 2020-02-05 15:30 | NUR ---
Received discharge orders from Dr. Yusuf. TARAN Maynard and Ila NOMAN Muhammad came to pts room with Jess Luz, publication specialist, Ortho/Neuro present in room, and myself, were at bedside to discuss today's plan for discharge. US Kacey will obtain 2 sets of clothes and shoes for pt to wear to the [facility]. Ila gave pt the phone number for the [facility], and pt was informed to call the [facility] today to schedule an outpatient appt tomorrow for a dressing change of her bilateral lower extremities, and was given 2 bus passes to transport to/from the [facility]. Ila will try to obtain a walker for the patient for discharge as pt states "I lost my walker." Pt given a few supplies to use and pt asked what she is supposed to do when she runs out." Pt was informed that she would need to start using her personal funds to obtain her personal supplies while she is no longer a patient here. RX completed by Dr. Yusuf including triplicate for Ultram called to [facility] [address]. Spoke to Pharmacist to call in prescriptions. Pharmacist stated she did not want me to fax the RX for Ultram or give to the patient because she could accept a "C3 narcotic over the phone, and the RX could not be used again. RX placed in pts chart. Informed by the Pharmacist at [facility] that the prescriptions can be ready at 1500. TC placed to [facility] at 1300 to request transport to [facility] then to take pt to the [facility], and scheduled the time with [employer] at 1530 for pick up driver at Main Entrance. When I asked the patient if she had called the Wound Care Clinic, pt would not answer my question and informed me that "I am not speaking to you." Informed pt to take the Wound Care supplies located inside her drawer, as she could taken them to/from her visits to the [facility] Care Clinic, as those supplies can be used until the order is changed or they are empty. Reviewed discharge orders with the patient, and pt was informed that Ila was able to locate a walker for her to take at the time of her discharge. Pt did not respond to instruction given to her when her discharge plans were reviewed with her. Pt stated "I am going to throw this crap in the garbage." Pt taken to the Main Entrance at 1520 with her belongings and purse. Waited for [facility] for approximately 10 minutes (until 1540), and then called [facility] to inform the arrangements were made at 1330 for a 1530 pick up driver and they had not yet arrived by 1540, the gleason operator at [facility] informed that "we are backed up so can you wait until 1630." Informed them I would try [employer], which was immediately done, and they arrived curbside Main Entrance at 1550. Pt assisted into the cab and was discharged at that time.
== END 2020-02-05 15:28 | disposition home or self-care (01) | DRG 279 ==
LOC: ER 11:21 → ED HOLD 15:19 → EDBEDREQ 16:24 → ORTHO 4S 17:13
PROVIDERS: ADMIT Family Medicine; ATTEND Family Medicine
PROC: 0W9G3ZZ Drainage of Peritoneal Cavity, Percutaneous Approach (ICD-10-PCS; principal; 2020-01-14)
PROC: 0W9G3ZZ Drainage of Peritoneal Cavity, Percutaneous Approach (ICD-10-PCS; 2020-01-22)
PROC: 0W9G3ZZ Drainage of Peritoneal Cavity, Percutaneous Approach (ICD-10-PCS; 2020-01-29)
DX: K72.90 Hepatic failure, unspecified without coma (principal); G93.41 Metabolic encephalopathy; L03.115 Cellulitis of right lower limb; E87.1 Hypo-osmolality and hyponatremia; I83.019 Varicose veins of right lower extremity with ulcer of unspecified site; I83.029 Varicose veins of left lower extremity with ulcer of unspecified site; L03.116 Cellulitis of left lower limb; E03.9 Hypothyroidism, unspecified; E86.1 Hypovolemia; K59.00 Constipation, unspecified; K74.60 Unspecified cirrhosis of liver; L97.919 Non-pressure chronic ulcer of unspecified part of right lower leg with unspecified severity; L97.929 Non-pressure chronic ulcer of unspecified part of left lower leg with unspecified severity; D64.9 Anemia, unspecified; F41.9 Anxiety disorder, unspecified; G89.29 Other chronic pain; R18.8 Other ascites; Z59.0 Homelessness; Z79.890 Hormone replacement therapy; Z79.899 Other long term (current) drug therapy
CPT/HCPCS: 36415; 36573; 49083; 70450; 71045; 76937; 80048; 80053; 80305; 80320; 81001; 82140; 83605; 84295; 85025; 85610; 87081; 87088; 93005; 93971; 94760; 97110; 97116; 97162; 97530; 99285; G0378; J0690; J1940; J7030; J7131; P9047; Q0163

== ENCOUNTER 2020-02-13 07:30 | Emergency (ER) | payer MEDICAID ==
[~2020-02-13] VITALS: Ht 172.7 cm; Wt 80.0 kg
[~2020-02-13 07:30] MED LIST changes: -ALBU8.5H8 INH; -AMOX-580 PO; -FOLI0.4T2 PO; -FURO-150 PO; +FURO10VI51 IV; +FURO40TA4 PO; -LACT1CAP26 PO; -LEVO50TA8 PO; -RIFA550T PO; +SPIR100T PO; -THIA50TA10 PO; +TRAM50TA2 PO; +folic acid tablet PO
[2020-02-13] MEDS ORDERED: DOXYCYCLINE 100MG CAPSULE PO STA (08:54)
[2020-02-13] MEDS ORDERED: cephalexin 250mg capsule PO ONE (08:55)
[2020-02-13] MEDS ORDERED: ondansetron 4mg rapidly disintigrating tab PO ONE (08:55)
[2020-02-13] MEDS ORDERED: CEPH250T PO (14:12)
[2020-02-13] MEDS ORDERED: DOXY100T56 PO (14:12)
[2020-02-13 15:01] VITALS: BP 110/78
[2020-02-14] MEDS ORDERED: SPIR25TA5 PO (13:33)
[2020-02-14] MEDS ORDERED: PROP10TA10 PO (13:33)
[2020-02-14] MEDS ORDERED: LACT1CAP26 PO (13:33)
[2020-02-14] MEDS ORDERED: LACT10SO PO (13:33)
[2020-02-14] MEDS ORDERED: ALBU8.5H8 IH (13:33)
[2020-02-14] MEDS ORDERED: THIA50TA10 PO (13:33)
[2020-02-14] MEDS ORDERED: LEVO50TA8 PO (13:33)
[2020-02-14] MEDS ORDERED: FURO-150 PO (13:33)
[2020-02-14] MEDS ORDERED: FOLI0.4T14 PO (13:33)
[2020-02-14] MEDS ORDERED: RIFA550T PO (13:33)
== END 2020-02-13 14:40 | disposition home or self-care (01) ==
LOC: ER 07:31
DX: S81.812A Laceration without foreign body, left lower leg, initial encounter (principal); L03.115 Cellulitis of right lower limb; L97.818 Non-pressure chronic ulcer of other part of right lower leg with other specified severity; F10.10 Alcohol abuse, uncomplicated; X58.XXXA Exposure to other specified factors, initial encounter; Y93.89 Activity, other specified; Y92.89 Other specified places as the place of occurrence of the external cause; Y99.8 Other external cause status
CPT/HCPCS: 93971; 99284

== ENCOUNTER 2020-02-13 10:00 | Outpatient (CLI) | payer MEDICAID ==
[2020-02-13] MEDS ORDERED: CEPH250T PO (14:12)
[2020-02-13] MEDS ORDERED: DOXY100T56 PO (14:12)
[2020-02-14] MEDS ORDERED: ALBU8.5H8 IH (13:33)
[2020-02-14] MEDS ORDERED: LACT1CAP26 PO (13:33)
[2020-02-14] MEDS ORDERED: SPIR25TA5 PO (13:33)
[2020-02-14] MEDS ORDERED: PROP10TA10 PO (13:33)
[2020-02-14] MEDS ORDERED: LACT10SO PO (13:33)
[2020-02-14] MEDS ORDERED: FOLI0.4T14 PO (13:33)
[2020-02-14] MEDS ORDERED: RIFA550T PO (13:33)
[2020-02-14] MEDS ORDERED: LEVO50TA8 PO (13:33)
[2020-02-14] MEDS ORDERED: FURO-150 PO (13:33)
[2020-02-14] MEDS ORDERED: THIA50TA10 PO (13:33)
== END 2020-02-13 14:10 | disposition home or self-care (01) ==
LOC: WOUND CARE 10:00 → EDSTATUS 13:00 → WOUND CARE 14:10
PROVIDERS: ATTEND Nurse Practitioner
DX: I83.018 Varicose veins of right lower extremity with ulcer other part of lower leg (principal); L97.811 Non-pressure chronic ulcer of other part of right lower leg limited to breakdown of skin; I83.029 Varicose veins of left lower extremity with ulcer of unspecified site; L97.921 Non-pressure chronic ulcer of unspecified part of left lower leg limited to breakdown of skin; E03.9 Hypothyroidism, unspecified; K74.60 Unspecified cirrhosis of liver; K72.90 Hepatic failure, unspecified without coma; E87.1 Hypo-osmolality and hyponatremia; E86.1 Hypovolemia; G93.41 Metabolic encephalopathy; G89.29 Other chronic pain; F41.9 Anxiety disorder, unspecified; F10.10 Alcohol abuse, uncomplicated; Z79.890 Hormone replacement therapy; Z79.899 Other long term (current) drug therapy
CPT/HCPCS: 93922; 93925; 93970; G0463

== ENCOUNTER 2020-02-14 10:43 | Inpatient (IN) | payer MEDICAID ==
[~2020-02-14] VITALS: Ht 172.7 cm; Wt 67.4 kg
[~2020-02-14 10:43] MED LIST changes: -ALBU8.5H8 IH; -CEPH500C5 PO; -FOLI0.4T14 PO; -FURO-150 PO; -LACT10SO PO; -LACT1CAP26 PO; -LEVO500T89 PO; -LEVO50TA8 PO; -RIFA550T PO; -SPIR25TA5 PO; -THIA50TA10 PO
[2020-02-14] MEDS ORDERED: normal saline 1000ML IV soln IVB ONE (12:25)
[2020-02-14] MEDS ORDERED: CefTRIAXone/D5W-Rocephin 1gm 50 ML IV ONE (12:25)
[2020-02-14] MEDS ORDERED: vancomycin/NS 1 GM ADD-VANTAGE 250 ML X 1 DOSE IV ONE (12:45)
[2020-02-14] MEDS ORDERED: ondansetron/PF 4mg/2ml inj IV PRN (13:30)
[2020-02-14] MEDS ORDERED: morphine 2 MG/ML inj. syringe IV PRN (13:30)
[2020-02-14] MEDS ORDERED: potassium CL 10mEq/100ml bag 100 ML IV PRN ×2 (13:30)
[2020-02-14] MEDS ORDERED: potassium Cl 20 mEq SR tablet PO PRN ×2 (13:30)
[2020-02-14] MEDS ORDERED: magnesium 2GM in 50ml NS 50 ML IV PRN (13:30)
[2020-02-14] MEDS ORDERED: magnesium hydroxide 30ml (MOM) UD suspension PO PRN (13:30)
[2020-02-14] MEDS ORDERED: acetaminophen 325mg tablet PO PRN ×2 (13:30)
[2020-02-14] MEDS ORDERED: mag hydrox/Alum hydrox/simeth 30ml oral suspension PO PRN (13:30)
[2020-02-14] MEDS ORDERED: HYDROcodone/acetaminophen 5mg/325mg tablet PO PRN (13:30)
[2020-02-14] MEDS ORDERED: magnesium 4gm in 100ml NS 100 ML IV PRN (13:30)
[2020-02-14] MEDS ORDERED: magnesium Cl slow-release 64mg tablet PO PRN (13:30)
[2020-02-14] MEDS ORDERED: FOLI0.4T14 PO (13:33)
[2020-02-14] MEDS ORDERED: SPIR25TA5 PO (13:33)
[2020-02-14] MEDS ORDERED: FURO-150 PO (13:33)
[2020-02-14] MEDS ORDERED: LACT1CAP26 PO (13:33)
[2020-02-14] MEDS ORDERED: RIFA550T PO (13:33)
[2020-02-14] MEDS ORDERED: THIA50TA10 PO (13:33)
[2020-02-14] MEDS ORDERED: LACT10SO PO (13:33)
[2020-02-14] MEDS ORDERED: PROP10TA10 PO (13:33)
[2020-02-14] MEDS ORDERED: LEVO50TA8 PO (13:33)
[2020-02-14] MEDS ORDERED: ALBU8.5H8 IH (13:33)
[2020-02-14] MEDS: HYDROcodone/acetaminophen 10/325mg tab PO PRN ×2 (13:53→20:06)
[2020-02-14 13:59] LABS: BASOPHILS % (AUTO) 0.5 % (0-1); EOSINOPHILS % (AUTO) 0.4 % (0-6); HEMATOCRIT 34.5 % (35.0-45.0); HEMOGLOBIN 11.8 g/dl (12.0-16.0); LYMPHOCYTES # (AUTO) 0.7 X10'3 (1.1-4.8); LYMPHOCYTES % (AUTO) 15.1 % (21-51); MEAN CORPUSCULAR HEMOGLOBIN 33.5 PG (27.0-31.0); MEAN CORPUSCULAR HGB CONC 34.3 g/dL (33.0-36.5); MEAN CORPUSCULAR VOLUME 97.7 FL (78-98); MEAN PLATELET VOLUME 6.9 FL (7.4-10.4); MONOCYTES # (AUTO) 0.6 X10'3 (0-0.9); MONOCYTES % (AUTO) 12.2 % (2-12); NEUTROPHILS # (AUTO) 3.4 X10'3 (1.8-7.7); NEUTROPHILS % (AUTO) 71.8 % (42-75); PLATELET COUNT 206 X10'3 (140-440); RED BLOOD COUNT 3.53 X10'6 (4.20-5.60); RED CELL DISTRIBUTION WIDTH 17.5 % (11.5-14.5); WHITE BLOOD COUNT 4.8 X10'3 (4.5-11.0)
[2020-02-14] MEDS ORDERED: albuterol 2.5 MG/3 ML nebule NEB PRN (14:10)
[2020-02-14 14:23] LABS: ALANINE AMINOTRANSFERASE 32 U/L (12-78); ALBUMIN/GLOBULIN RATIO 0.5 (1.1-1.5); ALKALINE PHOSPHATASE 151 IU/L (46-116); ANION GAP 6 (8-16); ASPARTATE AMINO TRANSFERASE 67 U/L (10-37); BILIRUBIN,TOTAL 2.2 MG/DL (0.1-1.0); BLOOD UREA NITROGEN 51 MG/DL (7-18); BUN/CREATININE RATIO 29.5 (6.6-38.0); CALCIUM 8.3 MG/DL (8.5-10.1); CHLORIDE 102 MMOL/L (99-107); CREATININE 1.73 MG/DL (0.40-0.90); GLUCOSE 157 MG/DL (70-104); POTASSIUM 5.3 MMOL/L (3.5-5.1); SODIUM 133 MMOL/L (135-145); TOTAL PROTEIN 5.7 G/DL (6.4-8.2); eGFR 30 ML/MIN
[2020-02-14 15:36] LABS: CLARITY,URINE SLIGHTLY CLOUDY (Clear); COLOR,URINE YELLOW (Yellow); GLUCOSE, URINE NEGATIVE (Neg); KETONES,URINE NEGATIVE (Neg); LEUKOCYTE ESTERASE ,URINE NEGATIVE (Neg); NITRITES, URINE NEGATIVE (Neg); OCCULT BLOOD,URINE NEGATIVE (Neg); PH,URINE 5.5 (4.8-8.0); PROTEIN,URINE NEGATIVE (Neg); UROBILINOGEN,URINE 0.2 E.U/dL (0.2-1.0)
[2020-02-14 15:37] LABS: UA COLLECTION TYPE CLN CATCH MIDSTREAM
[2020-02-14 15:47] LABS: SQUAMOUS EPITHELIAL CELL,UR FEW /LPF (FEW)
[2020-02-14 15:48] LABS: URINE AMPHETAMINE SCREEN NEGATIVE (Neg); URINE BARBITUATE SCREEN NEGATIVE (Neg); URINE BENZODIAZEPINES SCREEN NEGATIVE (Neg); URINE CANNABINOID SCREEN NEGATIVE (Neg); URINE COCAINE SCREEN NEGATIVE (Neg); URINE METHADONE SCREEN NEGATIVE (Neg); URINE OPIATE SCREEN POSITIVE (Neg); URINE PHENCYCLIDINE SCREEN NEGATIVE (Neg)
[2020-02-14 15:49] LABS: WBC,URINE 50-100 /HPF (0-4)
[2020-02-14 15:50] LABS: BACTERIA,URINE 1+ /HPF (Neg)
[2020-02-14 15:51] LABS: YEAST MODERATE /HPF (NEGATIVE)
[2020-02-14] MEDS: lactulose 20gm/30ml cup PO SCH (16:09)
--- NOTE | 2020-02-14 17:25 | NUR ---
CALLED TO GIVE REPORT TO NARCISO ALEXANDER ON SURGICAL PT GOING TO ROOM 344A, SHE WILL CALL BACK WAS UNAVALIABLE
--- NOTE | 2020-02-14 17:38 | NUR ---
Patient in room ED 13. I have received report from [place]ito ALEXANDER ED and had the opportunity to ask questions and assume patient care.
[2020-02-14 18:00] VITALS: BP 108/55
--- NOTE | 2020-02-14 18:13 | NUR ---
Patient in room KAILA 344. I have received report from BENJAMIN German and had the opportunity to ask questions and assume patient care.
[2020-02-14 18:30] VITALS: BP 114/70
[2020-02-14] MEDS: K and/or MAG REPLACEMENT MC SCH (18:36)
--- NOTE | 2020-02-14 18:36 | NUR ---
Problems reprioritized. Patient report given, questions answered & plan of care reviewed with BIA ALEXANDER.
--- NOTE | 2020-02-14 19:00 | NUR ---
Patient's K+ level= 5.3. Call Dr. Mo and he is aware. Will continue to monitor patient's lab in the morning.
[2020-02-14] MEDS: rifaximin 550mg tablet PO SCH (19:59)
[2020-02-14] MEDS: propranolol 10mg tablet PO SCH (19:59)
[2020-02-14] MEDS: lactobacillus rhamnosus 10,000 MMU CELLS/CAPSULE PO SCH (19:59)
[2020-02-14 20:00] VITALS: BP 110/68
[2020-02-14] MEDS: furosemide 20MG tablet PO SCH (20:00)
[2020-02-14] MEDS: heparin, porcine 5000 units/ml vial SQ SCH (20:02)
[2020-02-15] VITALS: BP 90/55
[2020-02-15] MEDS: HYDROcodone/acetaminophen 10/325mg tab PO PRN ×5 (00:36→20:19)
[2020-02-15] MEDS: lactulose 20gm/30ml cup PO SCH ×3 (00:36→16:19)
[2020-02-15 05:31] LABS: BASOPHILS # (AUTO) 0.1 X10'3 (0-0.2); EOSINOPHILS # (AUTO) 0.1 X10'3 (0-0.9); EOSINOPHILS % (AUTO) 2.5 % (0-6); HEMATOCRIT 31.9 % (35.0-45.0); LYMPHOCYTES # (AUTO) 1.2 X10'3 (1.1-4.8); LYMPHOCYTES % (AUTO) 20.6 % (21-51); MEAN CORPUSCULAR HEMOGLOBIN 33.8 PG (27.0-31.0); MEAN CORPUSCULAR HGB CONC 34.4 g/dL (33.0-36.5); MEAN CORPUSCULAR VOLUME 98.4 FL (78-98); MEAN PLATELET VOLUME 7.5 FL (7.4-10.4); MONOCYTES # (AUTO) 1.3 X10'3 (0-0.9); MONOCYTES % (AUTO) 22.2 % (2-12); NEUTROPHILS # (AUTO) 3.1 X10'3 (1.8-7.7); NEUTROPHILS % (AUTO) 53.7 % (42-75); PLATELET COUNT 200 X10'3 (140-440); RED BLOOD COUNT 3.24 X10'6 (4.20-5.60); RED CELL DISTRIBUTION WIDTH 17.5 % (11.5-14.5); WHITE BLOOD COUNT 5.8 X10'3 (4.5-11.0)
[2020-02-15 05:35] LABS: ALBUMIN 1.9 G/DL (3.4-5.0); ANION GAP 4 (8-16); BLOOD UREA NITROGEN 47 MG/DL (7-18); BUN/CREATININE RATIO 28.8 (6.6-38.0); CALCIUM 8.3 MG/DL (8.5-10.1); CHLORIDE 103 MMOL/L (99-107); CREATININE 1.63 MG/DL (0.40-0.90); GLUCOSE 84 MG/DL (70-104); MAGNESIUM 2.3 MG/DL (1.5-2.4); POTASSIUM 5.5 MMOL/L (3.5-5.1); SODIUM 134 MMOL/L (135-145); TOTAL CARBON DIOXIDE 27.3 MMOL/L (24-32); eGFR 32 ML/MIN
--- NOTE | 2020-02-15 06:51 | NUR ---
Problems reprioritized. Patient report given, questions answered & plan of care reviewed with BENJAMIN Newberry.
[2020-02-15 07:00] VITALS: BP 89/59
--- NOTE | 2020-02-15 07:00 | NUR ---
Patient in room KAILA 344. I have received report from Sophia ALEXANDER and had the opportunity to ask questions and assume patient care.
[2020-02-15 07:06] LABS: ANISOCYTOSIS 1+; PLATELET ESTIMATE NORMAL; TOTAL CELLS COUNTED 100
[2020-02-15 07:08] LABS: BURR CELLS FEW; SCHISTOCYTES FEW
[2020-02-15] MEDS: propranolol 10mg tablet PO SCH ×2 (08:00→19:39)
[2020-02-15] MEDS: heparin, porcine 5000 units/ml vial SQ SCH ×2 (08:00→19:32)
[2020-02-15] MEDS: K and/or MAG REPLACEMENT MC SCH ×2 (08:00→19:40)
[2020-02-15] MEDS: furosemide 20MG tablet PO SCH ×2 (08:00→19:31)
[2020-02-15] MEDS: spironolactone 25 MG tablet PO SCH (08:00)
[2020-02-15] MEDS: lactobacillus rhamnosus 10,000 MMU CELLS/CAPSULE PO SCH ×2 (08:50→19:31)
[2020-02-15] MEDS: folic acid 0.4mg tablet PO SCH (08:50)
[2020-02-15] MEDS: CefTRIAXone/D5W-Rocephin 1gm 50 ML IV SCH (08:50)
[2020-02-15] MEDS: levoTHYROXINE 25mcg tablet PO SCH (08:50)
[2020-02-15] MEDS: rifaximin 550mg tablet PO SCH ×2 (08:50→19:31)
[2020-02-15] MEDS: thiamine 100mg tablet PO SCH (08:53)
[2020-02-15 11:00] VITALS: BP 97/60
[2020-02-15] MEDS: vancomycin/NS 1 GM ADD-VANTAGE 250 ML X 1 DOSE IV SCH (14:54)
[2020-02-15 18:30] VITALS: BP 104/67
--- NOTE | 2020-02-15 18:30 | NUR ---
Problems reprioritized. Patient report given, questions answered & plan of care reviewed with Armando ALEXANDER.
[2020-02-16] VITALS: BP 108/68
[2020-02-16] MEDS: lactulose 20gm/30ml cup PO SCH ×4 (00:01→23:16)
[2020-02-16 05:01] LABS: BASOPHILS # (AUTO) 0.1 X10'3 (0-0.2); BASOPHILS % (AUTO) 1.3 % (0-1); EOSINOPHILS # (AUTO) 0.2 X10'3 (0-0.9); EOSINOPHILS % (AUTO) 3.2 % (0-6); HEMATOCRIT 31.8 % (35.0-45.0); HEMOGLOBIN 10.8 g/dl (12.0-16.0); LYMPHOCYTES % (AUTO) 20.8 % (21-51); MEAN CORPUSCULAR HEMOGLOBIN 33.7 PG (27.0-31.0); MEAN CORPUSCULAR HGB CONC 33.9 g/dL (33.0-36.5); MEAN CORPUSCULAR VOLUME 99.2 FL (78-98); MEAN PLATELET VOLUME 7.1 FL (7.4-10.4); MONOCYTES % (AUTO) 21.7 % (2-12); NEUTROPHILS # (AUTO) 2.5 X10'3 (1.8-7.7); PLATELET COUNT 206 X10'3 (140-440); RED CELL DISTRIBUTION WIDTH 17.2 % (11.5-14.5); WHITE BLOOD COUNT 4.7 X10'3 (4.5-11.0)
[2020-02-16 05:15] LABS: ANION GAP 4 (8-16); BLOOD UREA NITROGEN 39 MG/DL (7-18); BUN/CREATININE RATIO 29.5 (6.6-38.0); CALCIUM 8.3 MG/DL (8.5-10.1); CHLORIDE 103 MMOL/L (99-107); CREATININE 1.32 MG/DL (0.40-0.90); GLUCOSE 101 MG/DL (70-104); MAGNESIUM 2.1 MG/DL (1.5-2.4); SODIUM 134 MMOL/L (135-145); eGFR 41 ML/MIN
[2020-02-16 06:28] LABS: ANISOCYTOSIS 1+; PLATELET ESTIMATE NORMAL; TOTAL CELLS COUNTED 100
[2020-02-16 06:29] LABS: ACANTHOCYTES FEW; LARGE PLATELETS FEW; SCHISTOCYTES FEW
[2020-02-16 06:30] VITALS: BP 107/62
--- NOTE | 2020-02-16 06:41 | NUR ---
Patient in room KAILA 344. I have received report from BENJAMIN Roberts and had the opportunity to ask questions and assume patient care.
[2020-02-16] MEDS: CefTRIAXone/D5W-Rocephin 1gm 50 ML IV SCH (07:23)
[2020-02-16] MEDS: propranolol 10mg tablet PO SCH ×2 (07:24→20:00)
[2020-02-16] MEDS: rifaximin 550mg tablet PO SCH ×2 (07:25→20:32)
[2020-02-16] MEDS: folic acid 0.4mg tablet PO SCH (07:25)
[2020-02-16] MEDS: furosemide 20MG tablet PO SCH ×2 (07:25→20:00)
[2020-02-16] MEDS: lactobacillus rhamnosus 10,000 MMU CELLS/CAPSULE PO SCH ×2 (07:25→20:32)
[2020-02-16] MEDS: levoTHYROXINE 25mcg tablet PO SCH (07:25)
[2020-02-16] MEDS: thiamine 100mg tablet PO SCH (07:26)
[2020-02-16] MEDS: spironolactone 25 MG tablet PO SCH (07:26)
[2020-02-16 07:30] VITALS: BP 107/62
[2020-02-16] MEDS: heparin, porcine 5000 units/ml vial SQ SCH ×2 (07:37→20:33)
[2020-02-16] MEDS: K and/or MAG REPLACEMENT MC SCH ×2 (08:00→20:00)
[2020-02-16 11:00] VITALS: BP 100/67
[2020-02-16] MEDS: traMADol 50MG tablet PO PRN ×2 (11:41→20:34)
--- NOTE | 2020-02-16 15:00 | NUR ---
Patient in room KAILA 344. I have received report from BENJAMIN Telles and had the opportunity to ask questions and assume patient care.
[2020-02-16] MEDS: vancomycin/NS 1 GM ADD-VANTAGE 250 ML X 1 DOSE IV SCH (15:16)
--- NOTE | 2020-02-16 19:02 | NUR ---
Problems reprioritized. Patient report given, questions answered & plan of care reviewed with BENJAMIN Ramos.
[2020-02-16 20:00] VITALS: BP 94/50
[2020-02-17] VITALS: BP 90/50
[2020-02-17] MEDS: traMADol 50MG tablet PO PRN ×3 (04:34→22:40)
[2020-02-17 05:16] LABS: ANION GAP 5 (8-16); BLOOD UREA NITROGEN 32 MG/DL (7-18); BUN/CREATININE RATIO 29.9 (6.6-38.0); CALCIUM 8.2 MG/DL (8.5-10.1); CHLORIDE 101 MMOL/L (99-107); CREATININE 1.07 MG/DL (0.40-0.90); GLUCOSE 97 MG/DL (70-104); MAGNESIUM 1.9 MG/DL (1.5-2.4); POTASSIUM 4.7 MMOL/L (3.5-5.1); SODIUM 131 MMOL/L (135-145); TOTAL CARBON DIOXIDE 24.6 MMOL/L (24-32); eGFR 52 ML/MIN
[2020-02-17 05:20] LABS: BASOPHILS # (AUTO) 0.1 X10'3 (0-0.2); BASOPHILS % (AUTO) 1.2 % (0-1); EOSINOPHILS # (AUTO) 0.2 X10'3 (0-0.9); EOSINOPHILS % (AUTO) 3.2 % (0-6); HEMATOCRIT 30.4 % (35.0-45.0); HEMOGLOBIN 10.6 g/dl (12.0-16.0); LYMPHOCYTES # (AUTO) 1.1 X10'3 (1.1-4.8); LYMPHOCYTES % (AUTO) 22.7 % (21-51); MEAN CORPUSCULAR HEMOGLOBIN 33.8 PG (27.0-31.0); MEAN CORPUSCULAR HGB CONC 34.8 g/dL (33.0-36.5); MEAN CORPUSCULAR VOLUME 96.9 FL (78-98); MEAN PLATELET VOLUME 7.5 FL (7.4-10.4); MONOCYTES % (AUTO) 20.5 % (2-12); NEUTROPHILS # (AUTO) 2.5 X10'3 (1.8-7.7); NEUTROPHILS % (AUTO) 52.4 % (42-75); PLATELET COUNT 192 X10'3 (140-440); RED BLOOD COUNT 3.14 X10'6 (4.20-5.60); RED CELL DISTRIBUTION WIDTH 16.8 % (11.5-14.5); WHITE BLOOD COUNT 4.8 X10'3 (4.5-11.0)
[2020-02-17 06:24] LABS: ANISOCYTOSIS 1+; PLATELET ESTIMATE NORMAL; TOTAL CELLS COUNTED 100
[2020-02-17 06:36] LABS: ACANTHOCYTES FEW; SCHISTOCYTES FEW
--- NOTE | 2020-02-17 06:56 | NUR ---
Patient in room KAILA 344. I have received report from Richard ALEXANDER and had the opportunity to ask questions and assume patient care.
[2020-02-17 07:29] VITALS: BP 117/70
[2020-02-17] MEDS: rifaximin 550mg tablet PO SCH ×2 (07:50→19:49)
[2020-02-17] MEDS: spironolactone 25 MG tablet PO SCH (07:51)
[2020-02-17] MEDS: furosemide 20MG tablet PO SCH ×2 (07:51→19:49)
[2020-02-17] MEDS: lactobacillus rhamnosus 10,000 MMU CELLS/CAPSULE PO SCH ×2 (07:51→19:49)
[2020-02-17] MEDS: thiamine 100mg tablet PO SCH (07:51)
[2020-02-17] MEDS: lactulose 20gm/30ml cup PO SCH ×3 (07:52→23:57)
[2020-02-17] MEDS: folic acid 0.4mg tablet PO SCH (07:52)
[2020-02-17] MEDS: propranolol 10mg tablet PO SCH ×2 (07:52→19:49)
[2020-02-17] MEDS: levoTHYROXINE 25mcg tablet PO SCH (07:55)
[2020-02-17] MEDS: CefTRIAXone/D5W-Rocephin 1gm 50 ML IV SCH (07:56)
[2020-02-17] MEDS: heparin, porcine 5000 units/ml vial SQ SCH ×2 (07:56→20:15)
[2020-02-17] MEDS: K and/or MAG REPLACEMENT MC SCH ×2 (08:00→19:43)
[2020-02-17 11:00] VITALS: BP 109/59
[2020-02-17] MEDS ORDERED: VANCOMYCIN LEVEL IV ONE (13:30)
[2020-02-17] MEDS: vancomycin/NS 1 GM ADD-VANTAGE 250 ML X 1 DOSE IV SCH (15:06)
--- NOTE | 2020-02-17 18:56 | NUR ---
Patient in room KAILA 344. I have received report from Ghanshyam ALEXANDER and had the opportunity to ask questions and assume patient care. Pt sitting up in bed watching tv and working on her dinner. BL leg dressings are CD&I. Pt has no signs of distress. Will continue to monitor.
--- NOTE | 2020-02-17 18:57 | NUR ---
Patient in room KAILA 344. I have received report from SHAHAB ALEXANDER and had the opportunity to ask questions and assume patient care. Addendum: 02/17/20 at 1859 by Jose Sinha RN gAVE REPORT SHAHAB ALEXANDER
[2020-02-17 19:37] VITALS: BP 105/73
[2020-02-17 23:45] VITALS: BP 102/69
[2020-02-18] MEDS: vancomycin/NS 1 GM ADD-VANTAGE 250 ML X 1 DOSE IV SCH ×2 (02:19→14:22)
[2020-02-18 05:26] LABS: ANION GAP 3 (8-16); BLOOD UREA NITROGEN 25 MG/DL (7-18); CALCIUM 8.3 MG/DL (8.5-10.1); CHLORIDE 101 MMOL/L (99-107); GLUCOSE 92 MG/DL (70-104); MAGNESIUM 1.8 MG/DL (1.5-2.4); POTASSIUM 4.3 MMOL/L (3.5-5.1); SODIUM 129 MMOL/L (135-145); TOTAL CARBON DIOXIDE 25.5 MMOL/L (24-32); eGFR 56 ML/MIN
[2020-02-18] MEDS: traMADol 50MG tablet PO PRN ×3 (05:31→19:54)
[2020-02-18 05:35] LABS: BASOPHILS # (AUTO) 0.1 X10'3 (0-0.2); BASOPHILS % (AUTO) 1.3 % (0-1); EOSINOPHILS # (AUTO) 0.2 X10'3 (0-0.9); HEMATOCRIT 31.4 % (35.0-45.0); HEMOGLOBIN 10.8 g/dl (12.0-16.0); LYMPHOCYTES # (AUTO) 1.2 X10'3 (1.1-4.8); LYMPHOCYTES % (AUTO) 22.3 % (21-51); MEAN CORPUSCULAR HEMOGLOBIN 33.4 PG (27.0-31.0); MEAN CORPUSCULAR HGB CONC 34.4 g/dL (33.0-36.5); MEAN PLATELET VOLUME 7.9 FL (7.4-10.4); MONOCYTES # (AUTO) 1.1 X10'3 (0-0.9); MONOCYTES % (AUTO) 21.5 % (2-12); NEUTROPHILS # (AUTO) 2.8 X10'3 (1.8-7.7); NEUTROPHILS % (AUTO) 51.9 % (42-75); PLATELET COUNT 172 X10'3 (140-440); RED BLOOD COUNT 3.23 X10'6 (4.20-5.60); RED CELL DISTRIBUTION WIDTH 16.7 % (11.5-14.5); WHITE BLOOD COUNT 5.3 X10'3 (4.5-11.0)
--- NOTE | 2020-02-18 06:00 | NUR ---
Patient in room KAILA 344. I have received report from BENJAMIN Redd and had the opportunity to ask questions and assume patient care.
--- NOTE | 2020-02-18 06:22 | NUR ---
Problems reprioritized. Patient report given, questions answered & plan of care reviewed with Grecia ALEXANDER.
[2020-02-18 07:00] VITALS: BP 120/81
[2020-02-18] MEDS: heparin, porcine 5000 units/ml vial SQ SCH ×2 (08:00→19:53)
[2020-02-18] MEDS: K and/or MAG REPLACEMENT MC SCH ×2 (08:00→20:00)
[2020-02-18] MEDS: lactobacillus rhamnosus 10,000 MMU CELLS/CAPSULE PO SCH ×2 (08:46→19:53)
[2020-02-18] MEDS: thiamine 100mg tablet PO SCH (08:46)
[2020-02-18] MEDS: propranolol 10mg tablet PO SCH ×2 (08:47→19:54)
[2020-02-18] MEDS: furosemide 20MG tablet PO SCH ×2 (08:47→20:59)
[2020-02-18] MEDS: spironolactone 25 MG tablet PO SCH (08:47)
[2020-02-18] MEDS: folic acid 0.4mg tablet PO SCH (08:47)
[2020-02-18] MEDS: levoTHYROXINE 25mcg tablet PO SCH (08:48)
[2020-02-18] MEDS: lactulose 20gm/30ml cup PO SCH ×2 (08:48→15:56)
[2020-02-18] MEDS: CefTRIAXone/D5W-Rocephin 1gm 50 ML IV SCH (08:48)
[2020-02-18] MEDS: rifaximin 550mg tablet PO SCH ×2 (09:02→20:59)
[2020-02-18 09:27] LABS: ANISOCYTOSIS 1+; PLATELET ESTIMATE NORMAL; TOTAL CELLS COUNTED 100
[2020-02-18 09:28] LABS: ACANTHOCYTES FEW
[2020-02-18 12:53] VITALS: BP 116/75
--- NOTE | 2020-02-18 15:52 | NUR ---
Initial: Pt admit w/ BLE cellulitis and superficial ulceration R leg, hepatic encephalitis, ascites, and hyponatremia. Pt noted to have R calf/R medial ankle full thickness venous ulcers and L calf medial/anterior venous ulcers. PO 75-100% avg regular diet meeting needs; Arturo VITALE added to meals given wound healing needs; notified. LBM 02/16 receiving lactulose. Na 129 receiving lasix and thiamin/folic supplementation. Will continue to monitor. Rec: 1. continue regular diet 2. Arturo riley BIDHEATHER 3. thiamin/MVI per MD 4. bowel care as needed 5. wt per rx Addendum: 02/18/20 at [address] Amended: Links added. Addendum: 02/18/20 at [address] CORRECTION: Arturo VITALE
--- NOTE | 2020-02-18 18:00 | NUR ---
Problems reprioritized. Patient report given, questions answered & plan of care reviewed with Promise Paulino RN.
--- NOTE | 2020-02-18 18:27 | NUR ---
Patient in room KAILA 344. I have received report from BENJAMIN Paige and had the opportunity to ask questions and assume patient care. Addendum: 02/18/20 at 1827 by Meghan Cespedes RN Amended: Links added.
[2020-02-18 20:00] VITALS: BP 109/73
[2020-02-19] VITALS: BP 102/60
[2020-02-19] MEDS: lactulose 20gm/30ml cup PO SCH ×3 (00:14→15:34)
[2020-02-19] MEDS: vancomycin/NS 1 GM ADD-VANTAGE 250 ML X 1 DOSE IV SCH ×2 (01:25→15:36)
[2020-02-19] MEDS ORDERED: VANCOMYCIN LEVEL IV ONE (01:30)
[2020-02-19 01:48] LABS: BASOPHILS # (AUTO) 0.1 X10'3 (0-0.2); BASOPHILS % (AUTO) 1.2 % (0-1); EOSINOPHILS # (AUTO) 0.1 X10'3 (0-0.9); EOSINOPHILS % (AUTO) 2.2 % (0-6); HEMATOCRIT 28.6 % (35.0-45.0); HEMOGLOBIN 9.9 g/dl (12.0-16.0); LYMPHOCYTES # (AUTO) 1.1 X10'3 (1.1-4.8); LYMPHOCYTES % (AUTO) 18.2 % (21-51); MEAN CORPUSCULAR HEMOGLOBIN 33.6 PG (27.0-31.0); MEAN CORPUSCULAR HGB CONC 34.7 g/dL (33.0-36.5); MEAN CORPUSCULAR VOLUME 96.9 FL (78-98); MEAN PLATELET VOLUME 7.1 FL (7.4-10.4); MONOCYTES % (AUTO) 16.9 % (2-12); NEUTROPHILS # (AUTO) 3.8 X10'3 (1.8-7.7); NEUTROPHILS % (AUTO) 61.5 % (42-75); PLATELET COUNT 180 X10'3 (140-440); RED BLOOD COUNT 2.95 X10'6 (4.20-5.60); RED CELL DISTRIBUTION WIDTH 16.5 % (11.5-14.5); WHITE BLOOD COUNT 6.1 X10'3 (4.5-11.0)
[2020-02-19 02:00] LABS: ALBUMIN 1.9 G/DL (3.4-5.0); ANION GAP 5 (8-16); BLOOD UREA NITROGEN 24 MG/DL (7-18); BUN/CREATININE RATIO 24.5 (6.6-38.0); CALCIUM 8.1 MG/DL (8.5-10.1); CHLORIDE 100 MMOL/L (99-107); CREATININE 0.98 MG/DL (0.40-0.90); GLUCOSE 95 MG/DL (70-104); MAGNESIUM 1.6 MG/DL (1.5-2.4); POTASSIUM 4.4 MMOL/L (3.5-5.1); SODIUM 130 MMOL/L (135-145); TOTAL CARBON DIOXIDE 25.1 MMOL/L (24-32); VANCOMYCIN,TROUGH 18.8 UG/ML (6.0-14.0); eGFR 58 ML/MIN
[2020-02-19] MEDS: traMADol 50MG tablet PO PRN ×4 (02:10→21:49)
[2020-02-19 02:13] LABS: TOTAL CELLS COUNTED 100
[2020-02-19 02:14] LABS: PLATELET ESTIMATE NORMAL
[2020-02-19 02:15] LABS: ANISOCYTOSIS 1+
--- NOTE | 2020-02-19 06:22 | NUR ---
Patient in room KAILA 344. I have received report from BENJAMIN PEREZ and had the opportunity to ask questions and assume patient care.
--- NOTE | 2020-02-19 06:22 | NUR ---
Problems reprioritized. Patient report given, questions answered & plan of care reviewed with BENJAMIN ANAYA.
[2020-02-19 08:00] VITALS: BP 106/67
[2020-02-19] MEDS: K and/or MAG REPLACEMENT MC SCH ×2 (08:00→20:00)
[2020-02-19] MEDS: spironolactone 25 MG tablet PO SCH (08:40)
[2020-02-19] MEDS: levoTHYROXINE 25mcg tablet PO SCH (08:40)
[2020-02-19] MEDS: CefTRIAXone/D5W-Rocephin 1gm 50 ML IV SCH (08:40)
[2020-02-19] MEDS: folic acid 0.4mg tablet PO SCH (08:41)
[2020-02-19] MEDS: propranolol 10mg tablet PO SCH ×2 (08:41→21:04)
[2020-02-19] MEDS: thiamine 100mg tablet PO SCH (08:41)
[2020-02-19] MEDS: furosemide 20MG tablet PO SCH ×2 (08:41→19:47)
[2020-02-19] MEDS: lactobacillus rhamnosus 10,000 MMU CELLS/CAPSULE PO SCH ×2 (08:41→19:47)
[2020-02-19] MEDS: heparin, porcine 5000 units/ml vial SQ SCH ×2 (08:42→19:47)
[2020-02-19] MEDS: rifaximin 550mg tablet PO SCH ×2 (08:42→21:04)
[2020-02-19 10:15] VITALS: BP 118/71
[2020-02-19 10:45] VITALS: BP 109/69
[2020-02-19] MEDS ORDERED: albumin (human) 25% 100 ML IV solution IV ONE (10:50)
[2020-02-19 11:23] VITALS: BP 130/68
[2020-02-19 12:15] LABS: BF RBC COUNT 99 /CU MM; BF WBC COUNT 98 /CU MM (0-1000); BFAPPEAR HAZY; BFCOLOR YELLOW; BFVOLUME 50 ML
[2020-02-19 12:25] LABS: LYMPHOCYTES,BODY FLUID 60 %; MONOCYTES,BODY FLUID 34 %; NEUTROPHILS,BODY FLUID 6 %
--- NOTE | 2020-02-19 18:18 | NUR ---
Problems reprioritized. Patient report given, questions answered & plan of care reviewed with BENJAMIN PEREZ.
[2020-02-19 20:00] VITALS: BP 102/66
[2020-02-20] VITALS: BP 96/52
[2020-02-20] MEDS: vancomycin/NS 1 GM ADD-VANTAGE 250 ML X 1 DOSE IV SCH (01:08)
[2020-02-20] MEDS: lactulose 20gm/30ml cup PO SCH ×2 (01:08→08:02)
[2020-02-20] MEDS: traMADol 50MG tablet PO PRN ×2 (04:04→09:42)
--- NOTE | 2020-02-20 06:36 | NUR ---
Problems reprioritized. Patient report given, questions answered & plan of care reviewed with BENJAMIN Nguyễn.
[2020-02-20 07:00] VITALS: BP 92/56
[2020-02-20] MEDS: spironolactone 25 MG tablet PO SCH (08:00)
[2020-02-20] MEDS: propranolol 10mg tablet PO SCH (08:00)
[2020-02-20] MEDS: furosemide 20MG tablet PO SCH (08:00)
[2020-02-20] MEDS: K and/or MAG REPLACEMENT MC SCH (08:00)
[2020-02-20] MEDS: CefTRIAXone/D5W-Rocephin 1gm 50 ML IV SCH (08:01)
[2020-02-20] MEDS: levoTHYROXINE 25mcg tablet PO SCH (08:01)
[2020-02-20] MEDS: lactobacillus rhamnosus 10,000 MMU CELLS/CAPSULE PO SCH (08:02)
[2020-02-20] MEDS: folic acid 0.4mg tablet PO SCH (08:03)
[2020-02-20] MEDS: rifaximin 550mg tablet PO SCH (08:03)
[2020-02-20] MEDS: thiamine 100mg tablet PO SCH (08:03)
[2020-02-20] MEDS: heparin, porcine 5000 units/ml vial SQ SCH (08:04)
[2020-02-20] MEDS ORDERED: CEPH500C5 PO (10:31)
[2020-02-20] MEDS ORDERED: LEVO500T89 PO (11:14)
--- NOTE | 2020-02-20 12:12 | NUR ---
patient states that she understands all discharge instructions and will follow up with MD imaging February 24 at 0800 for paracentesis. IV was removed with canula intact. All belongings present on discharge. Patient wheeled to cab to be taken to [facility] for medication.
== END 2020-02-20 12:00 | disposition home or self-care (01) | DRG 279 ==
LOC: ER 10:44 → ED HOLD 13:26 → SUR 3N 18:01
PROVIDERS: ADMIT Internal Medicine; ATTEND Family Medicine
PROC: 0W9G3ZZ Drainage of Peritoneal Cavity, Percutaneous Approach (ICD-10-PCS; principal; 2020-02-19)
DX: K72.90 Hepatic failure, unspecified without coma (principal); I95.9 Hypotension, unspecified; L03.115 Cellulitis of right lower limb; L03.116 Cellulitis of left lower limb; E87.1 Hypo-osmolality and hyponatremia; L97.919 Non-pressure chronic ulcer of unspecified part of right lower leg with unspecified severity; K70.31 Alcoholic cirrhosis of liver with ascites; E03.9 Hypothyroidism, unspecified; I89.0 Lymphedema, not elsewhere classified; B96.89 Other specified bacterial agents as the cause of diseases classified elsewhere
CPT/HCPCS: 36415; 49083; 76856; 80048; 80053; 80202; 80305; 81001; 82140; 83605; 83735; 85025; 85610; 87040; 87070; 87077; 87081; 87088; 87186; 89051; 94760; 99285; G0378; J0696; J1644; J3370; J7030; P9047

== ENCOUNTER → 2020-02-14 | Outpatient (CLI) | payer MEDICAID ==
[~2020-02-14] MED LIST changes: +ALBU8.5H8 IH; +CEPH250T PO; +CEPH500C5 PO; +DOXY100T56 PO; +FOLI0.4T14 PO; +FURO-150 PO; +LACT10SO PO; +LACT1CAP26 PO; +LEVO500T89 PO; +LEVO50TA8 PO; +RIFA550T PO; +SPIR25TA5 PO; +THIA50TA10 PO
== END | disposition home or self-care (01) ==
LOC: WOUND CARE 09:40 → EDSTATUS 10:00
PROVIDERS: ATTEND Surgery
DX: I83.018 Varicose veins of right lower extremity with ulcer other part of lower leg (principal); L97.811 Non-pressure chronic ulcer of other part of right lower leg limited to breakdown of skin; I83.028 Varicose veins of left lower extremity with ulcer other part of lower leg; L97.821 Non-pressure chronic ulcer of other part of left lower leg limited to breakdown of skin; E03.9 Hypothyroidism, unspecified; K74.60 Unspecified cirrhosis of liver; K72.90 Hepatic failure, unspecified without coma; E87.1 Hypo-osmolality and hyponatremia; E86.1 Hypovolemia; G93.41 Metabolic encephalopathy; G89.29 Other chronic pain; F41.9 Anxiety disorder, unspecified; F10.10 Alcohol abuse, uncomplicated; Z79.890 Hormone replacement therapy; Z79.899 Other long term (current) drug therapy
CPT/HCPCS: 87070; 87075; 87077; 87102; 87186; G0463

== ENCOUNTER 2020-02-26 00:19 | Emergency (ER) | payer MEDICAID ==
[~2020-02-26] VITALS: Ht 172.7 cm; Wt 63.6 kg
[~2020-02-26 00:19] MED LIST changes: +ALBU8.5H8 IH; -CEPH250T PO; +CEPH500C5 PO; -DOXY100T56 PO; +FOLI0.4T14 PO; +FURO-150 PO; -FURO10VI51 IV; -FURO40TA4 PO; +LACT10SO PO; -LACT10SO32 PO; +LACT1CAP26 PO; +LEVO500T89 PO; +LEVO50TA8 PO; +RIFA550T PO; -SPIR100T PO; -SPIR25TA PO; +SPIR25TA5 PO; +THIA50TA10 PO; -TRAM50TA2 PO; -folic acid tablet PO
[2020-02-26] MEDS ORDERED: LIDOcaine 1% W/epiNEPHrine 1:200,000 10ml vial IJ ONE (01:30)
[2020-02-26] MEDS ORDERED: albumin (Human) 5% 250ml 250 ML IV ONE (02:15)
[2020-02-26] MEDS ORDERED: FOLI0.4T14 PO (02:27)
[2020-02-26] MEDS ORDERED: RIFA550T PO (02:27)
[2020-02-26] MEDS ORDERED: LACT10SO PO (02:27)
[2020-02-26] MEDS ORDERED: FURO-150 PO (02:27)
[2020-02-26] MEDS ORDERED: SPIR25TA5 PO (02:27)
[2020-02-26] MEDS ORDERED: LEVO50TA8 PO (02:27)
[2020-02-26 03:54] VITALS: BP 120/65
== END 2020-02-26 03:57 | disposition home or self-care (01) ==
LOC: ER 00:20
DX: R18.8 Other ascites (principal); Z59.0 Homelessness; Z79.899 Other long term (current) drug therapy
CPT/HCPCS: 49082; 96365; 99285; P9045

== ENCOUNTER 2020-02-28 06:20 | Day surgery (SDC) | payer MEDICAID ==
[~2020-02-28] VITALS: Ht 172.7 cm; Wt 65.8 kg
[2020-02-28] MEDS ORDERED: normal saline 1000ml 1,000 ML IV PRN (07:05)
[2020-02-28] MEDS ORDERED: albumin 25% 100mL bottle x 1 IV PRN (07:05)
[2020-02-28] MEDS ORDERED: LEVO50TA8 PO (07:47)
[2020-02-28] MEDS ORDERED: LACT10SO PO (07:47)
[2020-02-28] MEDS ORDERED: RIFA550T PO (07:47)
[2020-02-28] MEDS ORDERED: SPIR25TA5 PO (07:47)
[2020-02-28] MEDS ORDERED: FURO-150 PO (07:47)
[2020-02-28 07:50] VITALS: BP 97/47
== END 2020-02-28 08:50 | disposition home or self-care (01) ==
LOC: SSTAY O 06:20 → MED 3N 06:26 → SSTAY O 08:50
PROVIDERS: ATTEND Radiology Vascular & Interventional Radiology
DX: R18.8 Other ascites (principal); Z53.8 Procedure and treatment not carried out for other reasons; K74.60 Unspecified cirrhosis of liver; Z72.89 Other problems related to lifestyle; Z79.899 Other long term (current) drug therapy
CPT/HCPCS: 76705

== ENCOUNTER 2020-02-29 18:00 | Emergency (ER) | payer MEDICAID ==
[~2020-02-29] VITALS: Ht 172.7 cm; Wt 65.9 kg
[~2020-02-29 18:00] MED LIST changes: -ALBU8.5H8 IH; -CEPH500C5 PO; -FOLI0.4T14 PO; -LACT1CAP26 PO; -LEVO500T89 PO; -PROP10TA10 PO; -THIA50TA10 PO
--- NOTE | 2020-02-29 19:14 | NUR ---
Awaiting DC papers. Will continue to monitor.
[2020-02-29 19:18] VITALS: BP 102/67
== END 2020-02-29 19:28 | disposition home or self-care (01) ==
LOC: ER 18:00
DX: R10.9 Unspecified abdominal pain (principal); K70.30 Alcoholic cirrhosis of liver without ascites; R14.0 Abdominal distension (gaseous); Z59.0 Homelessness; Z72.89 Other problems related to lifestyle; Z79.01 Long term (current) use of anticoagulants; Z79.899 Other long term (current) drug therapy
CPT/HCPCS: 99283; 99284

== ENCOUNTER 2020-03-02 17:06 | Emergency (ER) | payer MEDICAID ==
[~2020-03-02] VITALS: Ht 172.7 cm; Wt 61.3 kg
[2020-03-02] MEDS ORDERED: acetaminophen 325mg tablet PO ONE (17:50)
[2020-03-02 18:04] LABS: BASOPHILS # (AUTO) 0.1 X10'3 (0-0.2); BASOPHILS % (AUTO) 0.9 % (0-1); EOSINOPHILS # (AUTO) 0.1 X10'3 (0-0.9); EOSINOPHILS % (AUTO) 1.6 % (0-6); HEMATOCRIT 29.1 % (35.0-45.0); HEMOGLOBIN 10.1 g/dl (12.0-16.0); LYMPHOCYTES # (AUTO) 1.1 X10'3 (1.1-4.8); LYMPHOCYTES % (AUTO) 16.8 % (21-51); MEAN CORPUSCULAR HEMOGLOBIN 34.3 PG (27.0-31.0); MEAN CORPUSCULAR HGB CONC 34.5 g/dL (33.0-36.5); MEAN CORPUSCULAR VOLUME 99.4 FL (78-98); MEAN PLATELET VOLUME 6.8 FL (7.4-10.4); MONOCYTES # (AUTO) 1.1 X10'3 (0-0.9); MONOCYTES % (AUTO) 16.9 % (2-12); NEUTROPHILS # (AUTO) 4.1 X10'3 (1.8-7.7); NEUTROPHILS % (AUTO) 63.8 % (42-75); PLATELET COUNT 195 X10'3 (140-440); RED BLOOD COUNT 2.93 X10'6 (4.20-5.60); RED CELL DISTRIBUTION WIDTH 15.8 % (11.5-14.5); WHITE BLOOD COUNT 6.5 X10'3 (4.5-11.0)
[2020-03-02 18:07] LABS: ALANINE AMINOTRANSFERASE 41 U/L (12-78); ALBUMIN 2.4 G/DL (3.4-5.0); ALBUMIN/GLOBULIN RATIO 0.7 (1.1-1.5); ALKALINE PHOSPHATASE 208 IU/L (46-116); ANION GAP 9 (8-16); ASPARTATE AMINO TRANSFERASE 72 U/L (10-37); BILIRUBIN,TOTAL 1.4 MG/DL (0.1-1.0); BLOOD UREA NITROGEN 50 MG/DL (7-18); BUN/CREATININE RATIO 32.7 (6.6-38.0); CALCIUM 8.8 MG/DL (8.5-10.1); CHLORIDE 101 MMOL/L (99-107); CREATININE 1.53 MG/DL (0.40-0.90); GLUCOSE 107 MG/DL (70-104); LIPASE 346 U/L (73-393); POTASSIUM 4.5 MMOL/L (3.5-5.1); SODIUM 133 MMOL/L (135-145); TOTAL CARBON DIOXIDE 22.7 MMOL/L (24-32); eGFR 35 ML/MIN
[2020-03-02 18:30] LABS: CLARITY,URINE CLEAR (Clear); COLOR,URINE YELLOW (Yellow); GLUCOSE, URINE NEGATIVE (Neg); KETONES,URINE NEGATIVE (Neg); LEUKOCYTE ESTERASE ,URINE NEGATIVE (Neg); NITRITES, URINE NEGATIVE (Neg); OCCULT BLOOD,URINE NEGATIVE (Neg); PH,URINE 5.5 (4.8-8.0); PROTEIN,URINE NEGATIVE (Neg); UROBILINOGEN,URINE 0.2 E.U/dL (0.2-1.0)
[2020-03-02 18:32] LABS: UA COLLECTION TYPE CLN CATCH MIDSTREAM
[2020-03-02] MEDS ORDERED: ACET-1025 PO (19:01)
[2020-03-02 19:18] VITALS: BP 102/63
== END 2020-03-02 19:16 | disposition home or self-care (01) ==
LOC: ER 17:07
DX: R10.9 Unspecified abdominal pain (principal); R51 Headache; Z72.89 Other problems related to lifestyle; Z59.0 Homelessness; Z79.01 Long term (current) use of anticoagulants; Z79.899 Other long term (current) drug therapy
CPT/HCPCS: 80053; 81003; 83690; 85025; 99283

== ENCOUNTER 2020-03-02 21:17 | Inpatient (IN) | payer MEDICAID ==
[~2020-03-02] VITALS: Ht 175.3 cm; Wt 88.0 kg
[~2020-03-02 21:17] MED LIST changes: +ACET-1025 PO
[2020-03-02] MEDS ORDERED: OLANZapine **IM** 10 mg inj. IM ONE (22:20)
[2020-03-02] MEDS ORDERED: LORazepam 2 mg/ml vial IM ONE (22:20)
[2020-03-02] MEDS ORDERED: lactulose 20gm/30ml cup PO ONE (22:20)
[2020-03-02] MEDS ORDERED: morphine 2 MG/ML inj. syringe IV PRN ×2 (23:00)
[2020-03-02] MEDS ORDERED: magnesium hydroxide 30ml (MOM) UD suspension PO PRN (23:00)
[2020-03-02] MEDS ORDERED: ondansetron/PF 4mg/2ml inj IV PRN (23:00)
[2020-03-02] MEDS ORDERED: acetaminophen 325mg tablet PO PRN ×2 (23:00)
[2020-03-02] MEDS ORDERED: HYDROcodone/acetaminophen 5mg/325mg tablet PO PRN (23:00)
[2020-03-02] MEDS ORDERED: mag hydrox/Alum hydrox/simeth 30ml oral suspension PO PRN (23:00)
[2020-03-02] MEDS: dextrose 5%-1/2 normal saline 1,000 ML IV SCH (23:37)
[2020-03-03] VITALS (7 sets, daily range): BP systolic 91–145; BP diastolic 62–87
--- NOTE | 2020-03-03 00:10 | NUR ---
Patient arrived to the unit, via gurney, accompanied by REMOTE SENSING ANALYST. VS obtained, belongings in closet. Per ED report patient was discharged from ED, but while patient waited in the lobby waiting for transportation she became combative and disoriented. Patient was reevaluated and appeared disoriented and combative. Patient was placed in restraint and a sitter was assigned here in the unit. Patient diagnosis is hepatic encephalopathy and ALOC.
[2020-03-03] MEDS: lactulose 20gm/30ml cup PO SCH ×4 (02:00→19:45)
--- NOTE | 2020-03-03 04:27 | NUR ---
DART: MRSA [id number]
[2020-03-03 05:36] LABS: BASOPHILS # (AUTO) 0.1 X10'3 (0-0.2); BASOPHILS % (AUTO) 0.9 % (0-1); EOSINOPHILS # (AUTO) 0.1 X10'3 (0-0.9); EOSINOPHILS % (AUTO) 1.8 % (0-6); HEMATOCRIT 28.5 % (35.0-45.0); HEMOGLOBIN 9.7 g/dl (12.0-16.0); LYMPHOCYTES % (AUTO) 16.7 % (21-51); MEAN CORPUSCULAR HEMOGLOBIN 33.7 PG (27.0-31.0); MEAN CORPUSCULAR HGB CONC 33.9 g/dL (33.0-36.5); MEAN CORPUSCULAR VOLUME 99.1 FL (78-98); MEAN PLATELET VOLUME 6.9 FL (7.4-10.4); MONOCYTES % (AUTO) 16.2 % (2-12); NEUTROPHILS # (AUTO) 3.9 X10'3 (1.8-7.7); NEUTROPHILS % (AUTO) 64.4 % (42-75); PLATELET COUNT 186 X10'3 (140-440); RED BLOOD COUNT 2.87 X10'6 (4.20-5.60); RED CELL DISTRIBUTION WIDTH 16.1 % (11.5-14.5); WHITE BLOOD COUNT 6.1 X10'3 (4.5-11.0)
[2020-03-03 05:48] LABS: ALANINE AMINOTRANSFERASE 36 U/L (12-78); ALBUMIN 2.2 G/DL (3.4-5.0); ALBUMIN/GLOBULIN RATIO 0.6 (1.1-1.5); ALKALINE PHOSPHATASE 173 IU/L (46-116); ANION GAP 11 (8-16); ASPARTATE AMINO TRANSFERASE 74 U/L (10-37); BILIRUBIN,TOTAL 1.7 MG/DL (0.1-1.0); BLOOD UREA NITROGEN 45 MG/DL (7-18); BUN/CREATININE RATIO 33.6 (6.6-38.0); CALCIUM 8.8 MG/DL (8.5-10.1); CHLORIDE 104 MMOL/L (99-107); CREATININE 1.34 MG/DL (0.40-0.90); GLUCOSE 113 MG/DL (70-104); POTASSIUM 3.9 MMOL/L (3.5-5.1); SODIUM 135 MMOL/L (135-145); TOTAL CARBON DIOXIDE 19.9 MMOL/L (24-32); TOTAL PROTEIN 5.7 G/DL (6.4-8.2); eGFR 40 ML/MIN
[2020-03-03] MEDS: ceFAZolin 1GM/D5W- ADD-VANTAGE 50 ML IV SCH ×3 (05:50→15:54)
--- NOTE | 2020-03-03 06:26 | NUR ---
Problems reprioritized. Patient report given, questions answered & plan of care reviewed with BENJAMIN Mcgrath
--- NOTE | 2020-03-03 06:48 | NUR ---
Patient in room PCU 3021. I have received report from Bryson ALEXANDER and had the opportunity to ask questions and assume patient care. Patient asleep in bed and resting comfortably. Sitter bedside.
--- NOTE | 2020-03-03 06:52 | NUR ---
Patient in room PCU 3021. I have received report from Lydia Cuellar and had the opportunity to ask questions and assume patient care.
[2020-03-03 07:40] LABS: ANISOCYTOSIS 1+; PLATELET ESTIMATE NORMAL; TOTAL CELLS COUNTED 100
--- NOTE | 2020-03-03 12:23 | NUR ---
New order from Dr. Alfonso: Ammonia daily lab, PT eval and treat, wound care consult.
[2020-03-03] MEDS: dextrose 5%-1/2 normal saline 1,000 ML IV SCH (13:38)
--- NOTE | 2020-03-03 16:46 | NUR ---
Paged Dr. Pereyra, Re: Caroline Qiuroz rm 302. Pt had minimal urine output. Bladder scan indicates 1641. Do you want to straight cath or place Pickett? Pt still altered and unresponsive. Please advise. Adri ALEXANDER [id number]
--- NOTE | 2020-03-03 16:55 | NUR ---
Dr. Pereyra, responded to page. ordered a stearns catheter to monitor for critically ill.
--- NOTE | 2020-03-03 17:22 | NUR ---
Placed Pickett catheter per MD order. Patient tolerated well. 1650cc of clear, yellow urine. Will continue to monitor.
--- NOTE | 2020-03-03 17:55 | NUR ---
Paged Dr. Alfonso: RE: Caroline Quiroz [id number]. Patient needs floor order for restraints. Current order is for ED. Thank you. Adri 1012
--- NOTE | 2020-03-03 17:58 | NUR ---
Order from Dr. Alfonso for soft restraints.
--- NOTE | 2020-03-03 18:24 | NUR ---
Orientee documentation: I have reviewed and agree with all interventions, assessments performed and documented by BENJAMIN Rush. [place] Medication Administration: For this medication-pass time frame, all medication were reviewed, dispensed, administered and documented per hospital policy by Adri ALEXANDER,
--- NOTE | 2020-03-03 18:32 | NUR ---
Problems reprioritized. Patient report given, questions answered & plan of care reviewed with Meghana ALEXANDER. Patient stable at transfer of care.
[2020-03-03] MEDS: rifaximin 550mg tablet PO SCH (19:45)
[2020-03-03] MEDS: lactobacillus rhamnosus 10,000 MMU CELLS/CAPSULE PO SCH (19:45)
[2020-03-04] MEDS: ceFAZolin 1GM/D5W- ADD-VANTAGE 50 ML IV SCH ×3 (00:20→15:57)
[2020-03-04] MEDS: dextrose 5%-1/2 normal saline 1,000 ML IV SCH ×3 (02:28→17:05)
[2020-03-04] MEDS: lactulose 20gm/30ml cup PO SCH ×4 (02:28→20:52)
[2020-03-04 03:00] VITALS: BP 136/79
[2020-03-04 05:07] LABS: BASOPHILS % (AUTO) 0.8 % (0-1); EOSINOPHILS # (AUTO) 0.1 X10'3 (0-0.9); HEMATOCRIT 29.7 % (35.0-45.0); MEAN CORPUSCULAR HGB CONC 34.2 g/dL (33.0-36.5); MONOCYTES # (AUTO) 0.9 X10'3 (0-0.9); NEUTROPHILS % (AUTO) 67.8 % (42-75)
[2020-03-04 05:09] LABS: EOSINOPHILS % (AUTO) 2.4 % (0-6); HEMOGLOBIN 10.1 g/dl (12.0-16.0); LYMPHOCYTES # (AUTO) 0.9 X10'3 (1.1-4.8); LYMPHOCYTES % (AUTO) 14.5 % (21-51); MEAN CORPUSCULAR HEMOGLOBIN 34.2 PG (27.0-31.0); MEAN CORPUSCULAR VOLUME 100.1 FL (78-98); MEAN PLATELET VOLUME 7.8 FL (7.4-10.4); MONOCYTES % (AUTO) 14.5 % (2-12); PLATELET COUNT 167 X10'3 (140-440); RED BLOOD COUNT 2.97 X10'6 (4.20-5.60); RED CELL DISTRIBUTION WIDTH 15.3 % (11.5-14.5); WHITE BLOOD COUNT 5.9 X10'3 (4.5-11.0)
[2020-03-04 05:20] LABS: ALANINE AMINOTRANSFERASE 37 U/L (12-78); ALBUMIN 2.1 G/DL (3.4-5.0); ALBUMIN/GLOBULIN RATIO 0.6 (1.1-1.5); ALKALINE PHOSPHATASE 136 IU/L (46-116); ANION GAP 8 (8-16); ASPARTATE AMINO TRANSFERASE 76 U/L (10-37); BILIRUBIN,TOTAL 2.1 MG/DL (0.1-1.0); BLOOD UREA NITROGEN 34 MG/DL (7-18); BUN/CREATININE RATIO 29.3 (6.6-38.0); CALCIUM 8.5 MG/DL (8.5-10.1); CHLORIDE 107 MMOL/L (99-107); CREATININE 1.16 MG/DL (0.40-0.90); GLUCOSE 104 MG/DL (70-104); POTASSIUM 3.3 MMOL/L (3.5-5.1); SODIUM 137 MMOL/L (135-145); TOTAL CARBON DIOXIDE 21.9 MMOL/L (24-32); TOTAL PROTEIN 5.5 G/DL (6.4-8.2); eGFR 47 ML/MIN
--- NOTE | 2020-03-04 06:30 | NUR ---
Patient in room PCU 3026. I have received report from Meghana ALEXANDER and had the opportunity to ask questions and assume patient care. Restraints removed first thing, patient with sitter at bedside.
[2020-03-04 07:00] VITALS: BP 125/69
[2020-03-04] MEDS: lactobacillus rhamnosus 10,000 MMU CELLS/CAPSULE PO SCH ×2 (08:19→20:52)
[2020-03-04] MEDS: rifaximin 550mg tablet PO SCH ×2 (09:45→20:52)
[2020-03-04] MEDS ORDERED: potassium Cl 20 mEq SR tablet PO PRN (10:30)
[2020-03-04] MEDS ORDERED: potassium CL 10mEq/100ml bag 100 ML IV PRN ×2 (10:30)
[2020-03-04] MEDS: potassium Cl 20 mEq SR tablet PO PRN ×3 (10:44→20:52)
[2020-03-04 11:00] VITALS: BP 121/72
--- NOTE | 2020-03-04 12:15 | NUR ---
Removed patient NG tube per Dr Pereyra orders. Patient tolerated well. Rate of fluids changed to 70ml/hr per Dr Martinezo orders.
[2020-03-04 15:00] VITALS: BP 114/69
--- NOTE | 2020-03-04 15:28 | NUR ---
Unable to reconcile home meds as the patient is confused. Dr. Pereyra looked at med rec with nursing and he only ordered labs at this time.
[2020-03-04] MEDS ORDERED: UNABLE TO OBTAIN (16:13)
[2020-03-04 16:23] LABS: MAGNESIUM 1.9 MG/DL (1.5-2.4)
--- NOTE | 2020-03-04 16:32 | NUR ---
PAGER ID: [phone] MESSAGE: [id number] Caroline Quiroz TSH 4.64 and Mag 1.9 FYI.
[2020-03-04 18:00] VITALS: BP 128/77
--- NOTE | 2020-03-04 18:24 | NUR ---
Problems reprioritized. Patient report given, questions answered & plan of care reviewed with Jordan ALEXANDER with my preceptor Lorrie ALEXANDER.
--- NOTE | 2020-03-04 18:25 | NUR ---
Agree wit orientees documentation.
--- NOTE | 2020-03-04 19:47 | NUR ---
Patient in room PCU 3026. I have received report from Lorrie Cuellar and Ashley Cuellar and had the opportunity to ask questions and assume patient care.
[2020-03-04] MEDS: K and/or MAG REPLACEMENT MC SCH (20:53)
[2020-03-04 22:00] VITALS: BP 117/77
[2020-03-05] MEDS: ceFAZolin 1GM/D5W- ADD-VANTAGE 50 ML IV SCH ×3 (00:50→17:53)
[2020-03-05 02:00] VITALS: BP 112/75
[2020-03-05] MEDS: lactulose 20gm/30ml cup PO SCH ×4 (02:09→20:04)
[2020-03-05] MEDS: dextrose 5%-1/2 normal saline 1,000 ML IV SCH ×2 (05:05→20:08)
[2020-03-05 05:08] LABS: BASOPHILS # (AUTO) 0.1 X10'3 (0-0.2); BASOPHILS % (AUTO) 1.4 % (0-1); EOSINOPHILS # (AUTO) 0.4 X10'3 (0-0.9); EOSINOPHILS % (AUTO) 5.3 % (0-6); HEMATOCRIT 27.1 % (35.0-45.0); HEMOGLOBIN 9.4 g/dl (12.0-16.0); LYMPHOCYTES # (AUTO) 0.9 X10'3 (1.1-4.8); LYMPHOCYTES % (AUTO) 12.9 % (21-51); MEAN CORPUSCULAR HEMOGLOBIN 34.4 PG (27.0-31.0); MEAN CORPUSCULAR HGB CONC 34.6 g/dL (33.0-36.5); MEAN CORPUSCULAR VOLUME 99.5 FL (78-98); MEAN PLATELET VOLUME 7.4 FL (7.4-10.4); MONOCYTES # (AUTO) 1.1 X10'3 (0-0.9); MONOCYTES % (AUTO) 16.5 % (2-12); NEUTROPHILS # (AUTO) 4.4 X10'3 (1.8-7.7); NEUTROPHILS % (AUTO) 63.9 % (42-75); PLATELET COUNT 177 X10'3 (140-440); RED BLOOD COUNT 2.73 X10'6 (4.20-5.60); RED CELL DISTRIBUTION WIDTH 15.4 % (11.5-14.5); WHITE BLOOD COUNT 6.9 X10'3 (4.5-11.0)
[2020-03-05 05:40] LABS: ALANINE AMINOTRANSFERASE 32 U/L (12-78); ALBUMIN 1.9 G/DL (3.4-5.0); ALBUMIN/GLOBULIN RATIO 0.5 (1.1-1.5); ALKALINE PHOSPHATASE 163 IU/L (46-116); ANION GAP 8 (8-16); ASPARTATE AMINO TRANSFERASE 74 U/L (10-37); BLOOD UREA NITROGEN 27 MG/DL (7-18); BUN/CREATININE RATIO 29.7 (6.6-38.0); CHLORIDE 105 MMOL/L (99-107); CREATININE 0.91 MG/DL (0.40-0.90); GLUCOSE 115 MG/DL (70-104); POTASSIUM 4.3 MMOL/L (3.5-5.1); SODIUM 133 MMOL/L (135-145); TOTAL CARBON DIOXIDE 20.5 MMOL/L (24-32); TOTAL PROTEIN 5.7 G/DL (6.4-8.2); eGFR 63 ML/MIN
--- NOTE | 2020-03-05 06:25 | NUR ---
Problems reprioritized. Patient report given, questions answered & plan of care reviewed with Dalrine ALEXANDER.
--- NOTE | 2020-03-05 06:27 | NUR ---
Patient in room PCU 3024. I have received report from Jordan ALEXANDER and had the opportunity to ask questions and assume patient care.
[2020-03-05 06:33] LABS: PLATELET ESTIMATE NORMAL
[2020-03-05 07:00] VITALS: BP 103/68
[2020-03-05] MEDS: K and/or MAG REPLACEMENT MC SCH ×2 (08:00→18:40)
[2020-03-05] MEDS: rifaximin 550mg tablet PO SCH ×2 (08:16→20:05)
[2020-03-05] MEDS: lactobacillus rhamnosus 10,000 MMU CELLS/CAPSULE PO SCH ×2 (08:16→20:04)
[2020-03-05 11:00] VITALS: BP 109/70
[2020-03-05 15:00] VITALS: BP 124/79
[2020-03-05 18:00] VITALS: BP 136/79
--- NOTE | 2020-03-05 18:09 | NUR ---
Patient in room PCU 3024. I have received report from Jordan ALEXANDER and had the opportunity to ask questions and assume patient care.
--- NOTE | 2020-03-05 18:46 | NUR ---
Patient in room PCU 3026. I have received report from Darline ALEXANDER and had the opportunity to ask questions and assume patient care.
[2020-03-05 22:00] VITALS: BP 124/73
[2020-03-06] MEDS: ceFAZolin 1GM/D5W- ADD-VANTAGE 50 ML IV SCH ×2 (00:03→08:22)
[2020-03-06] MEDS: lactulose 20gm/30ml cup PO SCH ×3 (01:53→14:00)
[2020-03-06 02:00] VITALS: BP 116/72
[2020-03-06 05:18] LABS: BASOPHILS # (AUTO) 0.2 X10'3 (0-0.2); BASOPHILS % (AUTO) 2.6 % (0-1); EOSINOPHILS # (AUTO) 0.3 X10'3 (0-0.9); EOSINOPHILS % (AUTO) 5.6 % (0-6); HEMATOCRIT 31.4 % (35.0-45.0); HEMOGLOBIN 10.7 g/dl (12.0-16.0); LYMPHOCYTES # (AUTO) 0.9 X10'3 (1.1-4.8); LYMPHOCYTES % (AUTO) 15.5 % (21-51); MEAN CORPUSCULAR HEMOGLOBIN 34.3 PG (27.0-31.0); MEAN CORPUSCULAR VOLUME 101.1 FL (78-98); MEAN PLATELET VOLUME 7.1 FL (7.4-10.4); MONOCYTES # (AUTO) 1.1 X10'3 (0-0.9); MONOCYTES % (AUTO) 17.8 % (2-12); NEUTROPHILS # (AUTO) 3.5 X10'3 (1.8-7.7); NEUTROPHILS % (AUTO) 58.5 % (42-75); PLATELET COUNT 202 X10'3 (140-440); RED CELL DISTRIBUTION WIDTH 15.3 % (11.5-14.5); WHITE BLOOD COUNT 5.9 X10'3 (4.5-11.0)
[2020-03-06 05:37] LABS: ALANINE AMINOTRANSFERASE 36 U/L (12-78); ALBUMIN 2.3 G/DL (3.4-5.0); ALBUMIN/GLOBULIN RATIO 0.6 (1.1-1.5); ALKALINE PHOSPHATASE 178 IU/L (46-116); ANION GAP 6 (8-16); ASPARTATE AMINO TRANSFERASE 84 U/L (10-37); BILIRUBIN,TOTAL 1.4 MG/DL (0.1-1.0); BLOOD UREA NITROGEN 21 MG/DL (7-18); BUN/CREATININE RATIO 25.6 (6.6-38.0); CHLORIDE 101 MMOL/L (99-107); CREATININE 0.82 MG/DL (0.40-0.90); GLUCOSE 107 MG/DL (70-104); POTASSIUM 4.2 MMOL/L (3.5-5.1); SODIUM 130 MMOL/L (135-145); TOTAL CARBON DIOXIDE 22.6 MMOL/L (24-32); eGFR 71 ML/MIN
--- NOTE | 2020-03-06 06:22 | NUR ---
Problems reprioritized. Patient report given, questions answered & plan of care reviewed with Kendrick ALEXANDER.
[2020-03-06] MEDS: K and/or MAG REPLACEMENT MC SCH (06:34)
[2020-03-06 06:41] LABS: PLATELET ESTIMATE NORMAL; TOTAL CELLS COUNTED 100
[2020-03-06 07:34] VITALS: BP 115/72
[2020-03-06] MEDS: lactobacillus rhamnosus 10,000 MMU CELLS/CAPSULE PO SCH (08:22)
[2020-03-06] MEDS: rifaximin 550mg tablet PO SCH (08:22)
[2020-03-06] MEDS: dextrose 5%-1/2 normal saline 1,000 ML IV SCH (10:52)
[2020-03-06] MEDS ORDERED: RIFA550T PO (11:28)
[2020-03-06] MEDS ORDERED: CEFD300C3 PO (11:28)
[2020-03-06] MEDS ORDERED: LACT10SO32 PO (11:28)
[2020-03-06 12:59] VITALS: BP 98/68
--- NOTE | 2020-03-06 15:11 | NUR ---
Pt to be dc'd, PIV removed and dressed. Pictures taken, Belongings gathered and taxi called. Taxi will be here in 3to 40 minutes. dc instructions and new meds discussed with pt. Pt verbally understands meds are at [facility]
--- NOTE | 2020-03-06 16:10 | NUR ---
Pt wheelchaired out in stable condition with belongings. Pt refused to take paperwork except for page with meds.
== END 2020-03-06 15:52 | disposition home or self-care (01) | DRG 279 ==
LOC: ER 21:19 → ED HOLD 23:00 → PCU 3S 03-03 00:13
PROVIDERS: ADMIT Internal Medicine; ATTEND Family Medicine
DX: K72.90 Hepatic failure, unspecified without coma (principal); N17.9 Acute kidney failure, unspecified; E87.1 Hypo-osmolality and hyponatremia; D50.9 Iron deficiency anemia, unspecified; D63.8 Anemia in other chronic diseases classified elsewhere; E03.9 Hypothyroidism, unspecified; E87.6 Hypokalemia; K70.31 Alcoholic cirrhosis of liver with ascites; N18.9 Chronic kidney disease, unspecified; Z59.0 Homelessness
CPT/HCPCS: 36415; 70450; 80053; 82140; 82948; 83735; 84443; 85025; 87081; 96372; 97110; 97116; 97161; 97530; 99285; G0378; J0690; J2060; J3490

== ENCOUNTER 2020-03-11 14:21 | Emergency (ER) | payer MEDICAID ==
[~2020-03-11] VITALS: Ht 172.7 cm; Wt 78.8 kg
[~2020-03-11 14:21] MED LIST changes: -ACET-1025 PO; +CEFD300C3 PO; -FURO-150 PO; -LACT10SO PO; +LACT10SO32 PO; -LEVO50TA8 PO; -SPIR25TA5 PO
[2020-03-11 14:28] VITALS: BP 116/69
[2020-03-11 15:36] LABS: BASOPHILS % (AUTO) 0.8 % (0-1); EOSINOPHILS # (AUTO) 0.1 X10'3 (0-0.9); EOSINOPHILS % (AUTO) 1.7 % (0-6); HEMOGLOBIN 9.6 g/dl (12.0-16.0); LYMPHOCYTES # (AUTO) 0.7 X10'3 (1.1-4.8); LYMPHOCYTES % (AUTO) 15.7 % (21-51); MEAN CORPUSCULAR HEMOGLOBIN 33.9 PG (27.0-31.0); MEAN CORPUSCULAR HGB CONC 34.2 g/dL (33.0-36.5); MEAN CORPUSCULAR VOLUME 99.3 FL (78-98); MEAN PLATELET VOLUME 6.2 FL (7.4-10.4); MONOCYTES # (AUTO) 0.9 X10'3 (0-0.9); MONOCYTES % (AUTO) 18.5 % (2-12); NEUTROPHILS % (AUTO) 63.3 % (42-75); PLATELET COUNT 264 X10'3 (140-440); RED BLOOD COUNT 2.82 X10'6 (4.20-5.60); RED CELL DISTRIBUTION WIDTH 14.9 % (11.5-14.5); WHITE BLOOD COUNT 4.7 X10'3 (4.5-11.0)
[2020-03-11 16:06] LABS: PLATELET ESTIMATE NORMAL; TOTAL CELLS COUNTED 100
[2020-03-11 16:15] LABS: ALBUMIN 2.3 G/DL (3.4-5.0); ALBUMIN/GLOBULIN RATIO 0.6 (1.1-1.5); ANION GAP 8 (8-16); ASPARTATE AMINO TRANSFERASE 84 U/L (10-37); BLOOD UREA NITROGEN 26 MG/DL (7-18); BUN/CREATININE RATIO 23.6 (6.6-38.0); CALCIUM 8.5 MG/DL (8.5-10.1); CHLORIDE 102 MMOL/L (99-107); GLUCOSE 134 MG/DL (70-104); POTASSIUM 3.8 MMOL/L (3.5-5.1); SODIUM 132 MMOL/L (135-145); TOTAL CARBON DIOXIDE 22.5 MMOL/L (24-32); TOTAL PROTEIN 6.1 G/DL (6.4-8.2); eGFR 50 ML/MIN
[2020-03-11 16:16] LABS: ALANINE AMINOTRANSFERASE 41 U/L (12-78); ALKALINE PHOSPHATASE 267 IU/L (46-116)
[2020-03-11 16:19] LABS: LIPASE 392 U/L (73-393)
== END 2020-03-11 16:36 | disposition home or self-care (01) ==
LOC: ER 14:22
DX: K70.31 Alcoholic cirrhosis of liver with ascites (principal); Z59.0 Homelessness
CPT/HCPCS: 36415; 71045; 80053; 83605; 83690; 83880; 84484; 85025; 99284; 99285

== ENCOUNTER 2020-03-14 14:26 | Emergency (ER) | payer MEDICAID ==
[~2020-03-14] VITALS: Ht 172.7 cm; Wt 65.0 kg
[2020-03-14] MEDS ORDERED: potassium Cl 20 mEq SR tablet PO STA (15:38)
[2020-03-14] MEDS ORDERED: furosemide 10 MG/1 ML 10ml inj IV ONE (15:40)
--- NOTE | 2020-03-14 16:04 | NUR ---
called [facility] to set up appointments, they have her scheduled on 03/17 at 1030, will let pt know
--- NOTE | 2020-03-14 16:16 | NUR ---
PATIENT MADE AWARE THAT APPOINTMENT IS AT [facility]
[2020-03-14 16:28] VITALS: BP 126/88
[2020-03-15] MEDS ORDERED: FURO-149 PO (15:08)
[2020-03-15] MEDS ORDERED: LEVO50TA8 PO (15:08)
[2020-03-15] MEDS ORDERED: RIFA550T PO (15:08)
[2020-03-15] MEDS ORDERED: SPIR100T5 PO (15:08)
== END 2020-03-14 16:31 | disposition home or self-care (01) ==
LOC: ER 14:27
DX: R18.8 Other ascites (principal); K74.60 Unspecified cirrhosis of liver; Z59.0 Homelessness; Z79.2 Long term (current) use of antibiotics; Z79.899 Other long term (current) drug therapy
CPT/HCPCS: 71046; 96374; 99284; J1940

== ENCOUNTER 2020-03-15 07:49 | Inpatient (IN) | payer MEDICAID ==
[~2020-03-15] VITALS: Ht 172.7 cm; Wt 80.0 kg
[2020-03-15 09:40] LABS: BASOPHILS # (AUTO) 0.1 X10'3 (0-0.2); EOSINOPHILS # (AUTO) 0.1 X10'3 (0-0.9); HEMOGLOBIN 9.7 g/dl (12.0-16.0); LYMPHOCYTES # (AUTO) 0.7 X10'3 (1.1-4.8); MEAN CORPUSCULAR HEMOGLOBIN 34.6 PG (27.0-31.0); MEAN CORPUSCULAR HGB CONC 34.7 g/dL (33.0-36.5); MEAN PLATELET VOLUME 6.1 FL (7.4-10.4)
[2020-03-15] MEDS ORDERED: LIDOcaine 1% W/epiNEPHrine 1:100,000 20ml vial SQ ONE (09:40)
[2020-03-15 09:42] LABS: EOSINOPHILS % (AUTO) 1.2 % (0-6); HEMATOCRIT 27.9 % (35.0-45.0); LYMPHOCYTES % (AUTO) 11.6 % (21-51); MEAN CORPUSCULAR VOLUME 99.6 FL (78-98); MONOCYTES # (AUTO) 1.1 X10'3 (0-0.9); NEUTROPHILS % (AUTO) 68.2 % (42-75); PLATELET COUNT 217 X10'3 (140-440); RED CELL DISTRIBUTION WIDTH 14.8 % (11.5-14.5); WHITE BLOOD COUNT 5.9 X10'3 (4.5-11.0)
[2020-03-15 09:54] LABS: ALANINE AMINOTRANSFERASE 42 U/L (12-78); ALBUMIN 2.1 G/DL (3.4-5.0); ALBUMIN/GLOBULIN RATIO 0.6 (1.1-1.5); ALKALINE PHOSPHATASE 198 IU/L (46-116); ANION GAP 4 (8-16); ASPARTATE AMINO TRANSFERASE 79 U/L (10-37); BILIRUBIN,TOTAL 1.3 MG/DL (0.1-1.0); BLOOD UREA NITROGEN 19 MG/DL (7-18); BUN/CREATININE RATIO 22.4 (6.6-38.0); CALCIUM 8.3 MG/DL (8.5-10.1); CHLORIDE 101 MMOL/L (99-107); CREATININE 0.85 MG/DL (0.40-0.90); GLUCOSE 102 MG/DL (70-104); POTASSIUM 3.6 MMOL/L (3.5-5.1); SODIUM 131 MMOL/L (135-145); TOTAL CARBON DIOXIDE 26.4 MMOL/L (24-32); TOTAL PROTEIN 5.7 G/DL (6.4-8.2); eGFR 68 ML/MIN
[2020-03-15] MEDS ORDERED: furosemide 10 MG/1 ML 10ml inj IV ONE (10:10)
[2020-03-15] MEDS ORDERED: LIDOcaine 2% 10ml TOPICAL JELLY (Urojet) TP ONE (10:10)
[2020-03-15] MEDS ORDERED: ampicillin/sulbac 3gm/NS 100ml 100 ML IV ONE (10:33)
--- NOTE | 2020-03-15 11:09 | NUR ---
paracentesis resulted in 10 liters of fluid, a sample was sent to lab per md order.
[2020-03-15] MEDS ORDERED: magnesium hydroxide 30ml (MOM) UD suspension PO PRN (11:10)
[2020-03-15] MEDS ORDERED: morphine 2 MG/ML inj. syringe IV PRN ×2 (11:10)
[2020-03-15] MEDS ORDERED: mag hydrox/Alum hydrox/simeth 30ml oral suspension PO PRN (11:10)
[2020-03-15] MEDS ORDERED: ondansetron/PF 4mg/2ml inj IV PRN (11:10)
[2020-03-15] MEDS ORDERED: acetaminophen 325mg tablet PO PRN ×2 (11:10)
[2020-03-15 11:49] LABS: CLARITY,URINE SLIGHTLY CLOUDY (Clear); COLOR,URINE YELLOW (Yellow); GLUCOSE, URINE NEGATIVE (Neg); KETONES,URINE NEGATIVE (Neg); LEUKOCYTE ESTERASE ,URINE NEGATIVE (Neg); NITRITES, URINE NEGATIVE (Neg); OCCULT BLOOD,URINE NEGATIVE (Neg); PROTEIN,URINE NEGATIVE (Neg); UROBILINOGEN,URINE 0.2 E.U/dL (0.2-1.0)
[2020-03-15 11:54] LABS: UA COLLECTION TYPE FOLEY CATH
[2020-03-15 11:55] LABS: BACTERIA,URINE 1+ /HPF (Neg); MUCUS STRANDS FEW /LPF (Neg); SQUAMOUS EPITHELIAL CELL,UR FEW /LPF (FEW)
[2020-03-15 11:56] LABS: RBC,URINE 0-2 /HPF (0-2); WBC,URINE 0-4 /HPF (0-4)
[2020-03-15 12:19] LABS: LYMPHOCYTES,BODY FLUID 88 %; MONOCYTES,BODY FLUID 10 %; NEUTROPHILS,BODY FLUID 2 %
[2020-03-15 12:23] LABS: TOTAL PROTEIN,BODY FLUID < 2.0 G/DL
[2020-03-15 12:24] LABS: BF WBC COUNT 24 /CU MM (0-1000); BFAPPEAR CLOUDY; BFCOLOR STRAW; BFVOLUME 5 ML
[2020-03-15 12:25] VITALS: BP 119/7
[2020-03-15 12:25] LABS: BF RBC COUNT 37 /CU MM
[2020-03-15] MEDS: CefTRIAXone/D5W-Rocephin 1gm 50 ML IV SCH (13:09)
[2020-03-15] MEDS: HYDROcodone/acetaminophen 5mg/325mg tablet PO PRN ×3 (13:13→22:22)
[2020-03-15 15:00] VITALS: BP 94/59
[2020-03-15] MEDS ORDERED: FURO-149 PO (15:08)
[2020-03-15] MEDS ORDERED: SPIR100T5 PO (15:08)
[2020-03-15] MEDS ORDERED: RIFA550T PO (15:08)
[2020-03-15] MEDS ORDERED: LEVO50TA8 PO (15:08)
[2020-03-15] MEDS: spironolactone 50 MG tablet PO SCH (15:50)
[2020-03-15 18:00] VITALS: BP 93/56
--- NOTE | 2020-03-15 18:51 | NUR ---
Patient in room PCU 3024. I have received report from Ubaldo ALEXANDER and had the opportunity to ask questions and assume patient care.
--- NOTE | 2020-03-15 18:58 | NUR ---
Problems reprioritized. Patient report given, questions answered & plan of care reviewed with BENJAMIN Balderas.
[2020-03-15] MEDS: lactulose 20gm/30ml cup PO SCH (21:05)
[2020-03-15 22:00] VITALS: BP 127/67
--- NOTE | 2020-03-15 22:40 | NUR ---
Problems reprioritized. Patient report given, questions answered & plan of care reviewed with Zakia ALEXANDER.
--- NOTE | 2020-03-15 22:45 | NUR ---
PATIENT TRANSFERRED TO ROOM 357B FROM PCU FOR BILATERAL LOWER EXTREMITY CELLULITIS, PLACED COMFORTABLE IN BED. VITAL SIGNS TAKEN AND RECORDED.
[2020-03-16] VITALS: BP 90/71
[2020-03-16 04:46] LABS: BASOPHILS # (AUTO) 0.1 X10'3 (0-0.2); EOSINOPHILS # (AUTO) 0.2 X10'3 (0-0.9); HEMATOCRIT 30.7 % (35.0-45.0); HEMOGLOBIN 10.4 g/dl (12.0-16.0); LYMPHOCYTES # (AUTO) 0.8 X10'3 (1.1-4.8); LYMPHOCYTES % (AUTO) 15.8 % (21-51); MEAN CORPUSCULAR HEMOGLOBIN 33.6 PG (27.0-31.0); MEAN CORPUSCULAR HGB CONC 33.8 g/dL (33.0-36.5); MEAN CORPUSCULAR VOLUME 99.3 FL (78-98); MEAN PLATELET VOLUME 6.4 FL (7.4-10.4); MONOCYTES # (AUTO) 0.7 X10'3 (0-0.9); MONOCYTES % (AUTO) 13.3 % (2-12); NEUTROPHILS # (AUTO) 3.6 X10'3 (1.8-7.7); NEUTROPHILS % (AUTO) 66.9 % (42-75); PLATELET COUNT 229 X10'3 (140-440); RED BLOOD COUNT 3.09 X10'6 (4.20-5.60); WHITE BLOOD COUNT 5.4 X10'3 (4.5-11.0)
[2020-03-16 04:53] LABS: ALANINE AMINOTRANSFERASE 44 U/L (12-78); ALBUMIN 2.1 G/DL (3.4-5.0); ALBUMIN/GLOBULIN RATIO 0.6 (1.1-1.5); ALKALINE PHOSPHATASE 173 IU/L (46-116); ANION GAP 3 (8-16); ASPARTATE AMINO TRANSFERASE 75 U/L (10-37); BILIRUBIN,TOTAL 1.4 MG/DL (0.1-1.0); BLOOD UREA NITROGEN 24 MG/DL (7-18); CALCIUM 8.5 MG/DL (8.5-10.1); CHLORIDE 102 MMOL/L (99-107); CREATININE 0.75 MG/DL (0.40-0.90); GLUCOSE 88 MG/DL (70-104); POTASSIUM 4.1 MMOL/L (3.5-5.1); SODIUM 133 MMOL/L (135-145); TOTAL PROTEIN 5.7 G/DL (6.4-8.2); eGFR 79 ML/MIN
[2020-03-16] MEDS: HYDROcodone/acetaminophen 10/325mg tab PO PRN (05:59)
--- NOTE | 2020-03-16 06:30 | NUR ---
Problems reprioritized. Patient report given, questions answered & plan of care reviewed with NIKITA ALEXANDER.
[2020-03-16 07:00] VITALS: BP 94/60
[2020-03-16] MEDS: furosemide 40mg tablet PO SCH (08:00)
[2020-03-16] MEDS: lactulose 20gm/30ml cup PO SCH ×3 (08:33→20:08)
[2020-03-16] MEDS: spironolactone 50 MG tablet PO SCH (08:33)
[2020-03-16] MEDS: CefTRIAXone/D5W-Rocephin 1gm 50 ML IV SCH (08:33)
[2020-03-16] MEDS: rifaximin 550mg tablet PO SCH ×2 (11:46→20:00)
[2020-03-16 12:00] VITALS: BP 112/60
[2020-03-16 18:00] VITALS: BP 123/87
--- NOTE | 2020-03-16 18:25 | NUR ---
Patient in room KAILA 357. I have received report from Delma ALEXANDER and had the opportunity to ask questions and assume patient care.
[2020-03-16] MEDS: HYDROcodone/acetaminophen 5mg/325mg tablet PO PRN (20:08)
[2020-03-17] VITALS: BP 90/53
[2020-03-17] MEDS: HYDROcodone/acetaminophen 5mg/325mg tablet PO PRN (05:09)
[2020-03-17 05:57] LABS: BASOPHILS # (AUTO) 0.1 X10'3 (0-0.2); BASOPHILS % (AUTO) 1.3 % (0-1); EOSINOPHILS # (AUTO) 0.2 X10'3 (0-0.9); HEMATOCRIT 29.4 % (35.0-45.0); HEMOGLOBIN 10.2 g/dl (12.0-16.0); LYMPHOCYTES # (AUTO) 0.7 X10'3 (1.1-4.8); LYMPHOCYTES % (AUTO) 14.4 % (21-51); MEAN CORPUSCULAR HEMOGLOBIN 34.6 PG (27.0-31.0); MEAN CORPUSCULAR HGB CONC 34.6 g/dL (33.0-36.5); MONOCYTES # (AUTO) 0.9 X10'3 (0-0.9); MONOCYTES % (AUTO) 17.7 % (2-12); NEUTROPHILS # (AUTO) 3.2 X10'3 (1.8-7.7); NEUTROPHILS % (AUTO) 62.6 % (42-75); PLATELET COUNT 182 X10'3 (140-440); RED BLOOD COUNT 2.94 X10'6 (4.20-5.60); RED CELL DISTRIBUTION WIDTH 14.6 % (11.5-14.5); WHITE BLOOD COUNT 5.1 X10'3 (4.5-11.0)
[2020-03-17 06:03] LABS: ALANINE AMINOTRANSFERASE 42 U/L (12-78); ALBUMIN/GLOBULIN RATIO 0.6 (1.1-1.5); ALKALINE PHOSPHATASE 155 IU/L (46-116); ANION GAP 3 (8-16); ASPARTATE AMINO TRANSFERASE 80 U/L (10-37); BILIRUBIN,TOTAL 1.1 MG/DL (0.1-1.0); BLOOD UREA NITROGEN 21 MG/DL (7-18); BUN/CREATININE RATIO 25.3 (6.6-38.0); CALCIUM 8.4 MG/DL (8.5-10.1); CHLORIDE 100 MMOL/L (99-107); CREATININE 0.83 MG/DL (0.40-0.90); GLUCOSE 100 MG/DL (70-104); POTASSIUM 4.1 MMOL/L (3.5-5.1); SODIUM 129 MMOL/L (135-145); TOTAL CARBON DIOXIDE 25.8 MMOL/L (24-32); TOTAL PROTEIN 5.5 G/DL (6.4-8.2); eGFR 70 ML/MIN
--- NOTE | 2020-03-17 06:16 | NUR ---
Problems reprioritized. Patient report given, questions answered & plan of care reviewed with Delma ALEXANDER.
[2020-03-17 07:27] LABS: PLATELET ESTIMATE NORMAL; TOTAL CELLS COUNTED 100
[2020-03-17 08:00] VITALS: BP 84/48
[2020-03-17] MEDS: furosemide 40mg tablet PO SCH (08:00)
[2020-03-17] MEDS: CefTRIAXone/D5W-Rocephin 1gm 50 ML IV SCH (09:19)
[2020-03-17] MEDS: lactulose 20gm/30ml cup PO SCH ×3 (09:19→20:48)
[2020-03-17] MEDS: rifaximin 550mg tablet PO SCH ×2 (09:20→19:30)
[2020-03-17] MEDS: spironolactone 50 MG tablet PO SCH (09:20)
[2020-03-17] MEDS: levoTHYROXINE 25mcg tablet PO SCH (09:23)
[2020-03-17 11:00] VITALS: BP 124/77
[2020-03-17] MEDS: clindamycin 600mg/D5W 50ml 50 ML IV SCH ×2 (14:05→19:30)
--- NOTE | 2020-03-17 18:11 | NUR ---
Patient in room KAILA 357. I have received report from Luis E and had the opportunity to ask questions and assume patient care.
--- NOTE | 2020-03-17 18:35 | NUR ---
Patient in room KAILA 357. I have received report from Delma ALEXANDER and had the opportunity to ask questions and assume patient care.
[2020-03-17 19:00] VITALS: BP 116/71
[2020-03-17] MEDS: HYDROcodone/acetaminophen 10/325mg tab PO PRN (19:31)
[2020-03-18] VITALS: BP 93/55
[2020-03-18] MEDS: HYDROcodone/acetaminophen 10/325mg tab PO PRN ×2 (00:07→20:59)
--- NOTE | 2020-03-18 02:00 | NUR ---
Patient c/o itching. Called MD for order. 1 x order of benadryl received.
[2020-03-18] MEDS: clindamycin 600mg/D5W 50ml 50 ML IV SCH ×4 (02:04→20:15)
[2020-03-18] MEDS ORDERED: diphenhydrAMINE 25 MG/10 ML UD oral solution PO ONE (02:15)
[2020-03-18] MEDS ORDERED: diphenhydrAMINE 25mg capsule PO ONE (02:20)
--- NOTE | 2020-03-18 02:50 | NUR ---
Patient states that she caught her PIV on the side of the bedrail when getting up to try and shut the door. Blood everywhere, cannula intact and new piv to be started.
--- NOTE | 2020-03-18 03:10 | NUR ---
4 attempts to try start a new IV but veins blow and roll, and pt, jumps. Addendum: 03/18/20 at 0317 by Deepika Samayoa RN At this point in the shift, have asked patient several times if she will let me wrap weeping BLE until wound care can come assess later today, but she refuses. 2 x linen changes and dry flows in place again. Patient is very rude and has been argumentative and insulting telling this nurse that I am not a nurse, and that I don't have to worry about being cold as I have plenty of fat on me. I have requested to not have this patient back tonight as difficult to please and insulting. At this time, patient remains with out an PIV.
[2020-03-18 05:37] LABS: BASOPHILS # (AUTO) 0.1 X10'3 (0-0.2); BASOPHILS % (AUTO) 1.1 % (0-1); EOSINOPHILS # (AUTO) 0.2 X10'3 (0-0.9); EOSINOPHILS % (AUTO) 3.3 % (0-6); HEMATOCRIT 30.5 % (35.0-45.0); HEMOGLOBIN 10.5 g/dl (12.0-16.0); LYMPHOCYTES # (AUTO) 0.8 X10'3 (1.1-4.8); LYMPHOCYTES % (AUTO) 14.8 % (21-51); MEAN CORPUSCULAR HEMOGLOBIN 34.2 PG (27.0-31.0); MEAN CORPUSCULAR HGB CONC 34.4 g/dL (33.0-36.5); MEAN CORPUSCULAR VOLUME 99.5 FL (78-98); MEAN PLATELET VOLUME 6.5 FL (7.4-10.4); MONOCYTES % (AUTO) 18.5 % (2-12); NEUTROPHILS # (AUTO) 3.2 X10'3 (1.8-7.7); NEUTROPHILS % (AUTO) 62.3 % (42-75); PLATELET COUNT 187 X10'3 (140-440); RED BLOOD COUNT 3.07 X10'6 (4.20-5.60); RED CELL DISTRIBUTION WIDTH 14.4 % (11.5-14.5); WHITE BLOOD COUNT 5.2 X10'3 (4.5-11.0)
[2020-03-18 05:58] LABS: ALANINE AMINOTRANSFERASE 44 U/L (12-78); ALBUMIN 2.1 G/DL (3.4-5.0); ALBUMIN/GLOBULIN RATIO 0.5 (1.1-1.5); ALKALINE PHOSPHATASE 165 IU/L (46-116); ANION GAP 5 (8-16); ASPARTATE AMINO TRANSFERASE 88 U/L (10-37); BILIRUBIN,TOTAL 1.3 MG/DL (0.1-1.0); BLOOD UREA NITROGEN 23 MG/DL (7-18); BUN/CREATININE RATIO 25.3 (6.6-38.0); CALCIUM 8.6 MG/DL (8.5-10.1); CHLORIDE 97 MMOL/L (99-107); CREATININE 0.91 MG/DL (0.40-0.90); GLUCOSE 95 MG/DL (70-104); SODIUM 127 MMOL/L (135-145); TOTAL CARBON DIOXIDE 25.5 MMOL/L (24-32); eGFR 63 ML/MIN
--- NOTE | 2020-03-18 06:48 | NUR ---
Patient in room KAILA 357. I have received report from BENJAMIN Poe and had the opportunity to ask questions and assume patient care.
--- NOTE | 2020-03-18 06:51 | NUR ---
Report to Koki.
[2020-03-18 07:30] VITALS: BP 108/69
[2020-03-18] MEDS: levoTHYROXINE 25mcg tablet PO SCH (07:31)
[2020-03-18] MEDS: furosemide 40mg tablet PO SCH (07:32)
[2020-03-18] MEDS: lactulose 20gm/30ml cup PO SCH ×3 (07:34→20:14)
[2020-03-18] MEDS: rifaximin 550mg tablet PO SCH ×2 (07:38→20:13)
--- NOTE | 2020-03-18 07:41 | NUR ---
Pt refused Xifoxon. states having constipation and don not need meed at this time.
[2020-03-18] MEDS: spironolactone 50 MG tablet PO SCH (08:30)
[2020-03-18] MEDS ORDERED: diphenhydrAMINE 25mg capsule PO PRN (11:40)
[2020-03-18 12:00] VITALS: BP 105/69
[2020-03-18 18:00] VITALS: BP 120/73
--- NOTE | 2020-03-18 18:43 | NUR ---
Patient in room KAILA 357. I have received report from BENJAMIN Lebron and had the opportunity to ask questions and assume patient care.
--- NOTE | 2020-03-18 18:55 | NUR ---
Problems reprioritized. Patient report given, questions answered & plan of care reviewed with BENJAMIN Baker.
[2020-03-18 23:51] VITALS: BP 95/62
[2020-03-19] MEDS: clindamycin 600mg/D5W 50ml 50 ML IV SCH ×4 (01:47→20:21)
--- NOTE | 2020-03-19 06:12 | NUR ---
Problems reprioritized. Patient report given, questions answered & plan of care reviewed with BENJAMIN German.
[2020-03-19 06:13] LABS: BASOPHILS % (AUTO) 0.4 % (0-1); EOSINOPHILS # (AUTO) 0.1 X10'3 (0-0.9); EOSINOPHILS % (AUTO) 1.5 % (0-6); HEMATOCRIT 30.9 % (35.0-45.0); HEMOGLOBIN 10.4 g/dl (12.0-16.0); LYMPHOCYTES # (AUTO) 0.4 X10'3 (1.1-4.8); LYMPHOCYTES % (AUTO) 4.9 % (21-51); MEAN CORPUSCULAR HEMOGLOBIN 33.3 PG (27.0-31.0); MEAN CORPUSCULAR HGB CONC 33.8 g/dL (33.0-36.5); MEAN CORPUSCULAR VOLUME 98.5 FL (78-98); MEAN PLATELET VOLUME 6.6 FL (7.4-10.4); MONOCYTES # (AUTO) 0.9 X10'3 (0-0.9); MONOCYTES % (AUTO) 10.2 % (2-12); NEUTROPHILS # (AUTO) 7.3 X10'3 (1.8-7.7); PLATELET COUNT 196 X10'3 (140-440); RED BLOOD COUNT 3.13 X10'6 (4.20-5.60); RED CELL DISTRIBUTION WIDTH 14.2 % (11.5-14.5); WHITE BLOOD COUNT 8.8 X10'3 (4.5-11.0)
[2020-03-19 06:25] LABS: ALANINE AMINOTRANSFERASE 48 U/L (12-78); ALBUMIN/GLOBULIN RATIO 0.5 (1.1-1.5); ALKALINE PHOSPHATASE 187 IU/L (46-116); ANION GAP 5 (8-16); ASPARTATE AMINO TRANSFERASE 88 U/L (10-37); BILIRUBIN,TOTAL 1.2 MG/DL (0.1-1.0); BLOOD UREA NITROGEN 23 MG/DL (7-18); CALCIUM 8.2 MG/DL (8.5-10.1); CHLORIDE 97 MMOL/L (99-107); CREATININE 0.96 MG/DL (0.40-0.90); GLUCOSE 103 MG/DL (70-104); POTASSIUM 4.8 MMOL/L (3.5-5.1); SODIUM 128 MMOL/L (135-145); TOTAL CARBON DIOXIDE 26.5 MMOL/L (24-32); TOTAL PROTEIN 5.7 G/DL (6.4-8.2); eGFR 59 ML/MIN
--- NOTE | 2020-03-19 07:04 | NUR ---
Patient in room KAILA 357. I have received report from Samuel ALEXANDER and had the opportunity to ask questions and assume patient care.
[2020-03-19 08:00] VITALS: BP_SYST 127; BP_SYST 140; BP_DIAS 52; BP_DIAS 89
[2020-03-19] MEDS: furosemide 40mg tablet PO SCH (08:14)
[2020-03-19] MEDS: levoTHYROXINE 25mcg tablet PO SCH (08:15)
[2020-03-19] MEDS: rifaximin 550mg tablet PO SCH ×2 (08:15→20:16)
[2020-03-19] MEDS: HYDROcodone/acetaminophen 10/325mg tab PO PRN ×2 (08:15→14:08)
[2020-03-19] MEDS: spironolactone 50 MG tablet PO SCH (08:16)
[2020-03-19] MEDS: lactulose 20gm/30ml cup PO SCH ×3 (08:16→20:19)
[2020-03-19 11:00] VITALS: BP 106/67
--- NOTE | 2020-03-19 14:30 | NUR ---
Patient presented to ED with c/o abdominal pain and distention, had outpatient paracentesis scheduled however could not get transportation per ED note. regularly receives paracentesis as outpt. Pt has history of BLE venous ulcers, EtOH liver cirrhosis, ESLD, UTI, and cellulitis; resides at the [facility]. PO intake 50-75% for three days. Has increased protein needs r/t numerous venous ulcer to BLE, described as mostly small with large one on righter lower leg, mostly partial thickness and edematous, weeping per [facility] note. Patient seen at bedside and given written high protein education handout at bedside. Did not verbally review with patient as she had c/o abdominal pain and did not want to talk, requested to lay down in bed. RN also present at bedside, provided lactulose and norco to pt. Noted that patient's unlisted diet order states no gluten and no dairy, asked patient about this and pt responded that she normally eats those foods and does not know what is going on right now, states that normally everything is fine after paracentesis. Will attempt another visit when patient is feeling better to talk. Recommend: 1. continue heart healthy diet (gluten free and no dairy per diet order) pt reports she normally can tolerate those foods 2. Provide verbal protein education 3. weight per rx Addendum: 03/19/20 at [address] Amended: Links added.
--- NOTE | 2020-03-19 18:50 | NUR ---
Problems reprioritized. Patient report given, questions answered & plan of care reviewed with Samuel Cuellar.
[2020-03-19 19:00] VITALS: BP 110/70
[2020-03-19] MEDS: lactobacillus rhamnosus 10,000 MMU CELLS/CAPSULE PO SCH (20:16)
[2020-03-19] MEDS: HYDROcodone/acetaminophen 5mg/325mg tablet PO PRN (20:17)
--- NOTE | 2020-03-19 20:29 | NUR ---
Shruticristóbal is refusing to let me do her wound care on both of her legs. She stated; " They look good. I probably wont have them changed for a few more days. "
[2020-03-20 01:10] VITALS: BP 125/66
[2020-03-20] MEDS: clindamycin 600mg/D5W 50ml 50 ML IV SCH ×4 (02:13→19:25)
[2020-03-20 06:00] LABS: BASOPHILS % (AUTO) 0.3 % (0-1); EOSINOPHILS % (AUTO) 0 % (0-6); HEMATOCRIT 29.6 % (35.0-45.0); HEMOGLOBIN 9.9 g/dl (12.0-16.0); LYMPHOCYTES # (AUTO) 0.4 X10'3 (1.1-4.8); LYMPHOCYTES % (AUTO) 3.4 % (21-51); MEAN CORPUSCULAR HGB CONC 33.4 g/dL (33.0-36.5); MEAN CORPUSCULAR VOLUME 98.8 FL (78-98); MEAN PLATELET VOLUME 8.4 FL (7.4-10.4); MONOCYTES # (AUTO) 0.9 X10'3 (0-0.9); MONOCYTES % (AUTO) 8.1 % (2-12); NEUTROPHILS % (AUTO) 88.2 % (42-75); PLATELET COUNT 144 X10'3 (140-440); RED BLOOD COUNT 2.99 X10'6 (4.20-5.60); RED CELL DISTRIBUTION WIDTH 14.4 % (11.5-14.5); WHITE BLOOD COUNT 11.3 X10'3 (4.5-11.0)
[2020-03-20 06:33] LABS: ALANINE AMINOTRANSFERASE 52 U/L (12-78); ALBUMIN/GLOBULIN RATIO 0.5 (1.1-1.5); ALKALINE PHOSPHATASE 147 IU/L (46-116); ANION GAP 9 (8-16); ASPARTATE AMINO TRANSFERASE 99 U/L (10-37); BILIRUBIN,TOTAL 1.7 MG/DL (0.1-1.0); BLOOD UREA NITROGEN 31 MG/DL (7-18); BUN/CREATININE RATIO 23.1 (6.6-38.0); CHLORIDE 94 MMOL/L (99-107); CREATININE 1.34 MG/DL (0.40-0.90); GLUCOSE 135 MG/DL (70-104); POTASSIUM 4.4 MMOL/L (3.5-5.1); SODIUM 125 MMOL/L (135-145); TOTAL CARBON DIOXIDE 22.2 MMOL/L (24-32); TOTAL PROTEIN 5.7 G/DL (6.4-8.2); eGFR 40 ML/MIN
--- NOTE | 2020-03-20 06:33 | NUR ---
Problems reprioritized. Patient report given, questions answered & plan of care reviewed with BENJAMIN White.
[2020-03-20 07:00] VITALS: BP 103/61
[2020-03-20] MEDS: lactobacillus rhamnosus 10,000 MMU CELLS/CAPSULE PO SCH ×2 (07:54→19:27)
[2020-03-20] MEDS: levoTHYROXINE 25mcg tablet PO SCH (07:55)
[2020-03-20] MEDS: spironolactone 50 MG tablet PO SCH (07:55)
[2020-03-20] MEDS: furosemide 40mg tablet PO SCH (07:55)
[2020-03-20] MEDS: lactulose 20gm/30ml cup PO SCH ×2 (07:58→20:00)
[2020-03-20] MEDS: HYDROcodone/acetaminophen 5mg/325mg tablet PO PRN ×2 (08:10→19:29)
[2020-03-20] MEDS ORDERED: normal saline 1000ml 1,000 ML IV SCH (08:25)
[2020-03-20] MEDS: rifaximin 550mg tablet PO SCH ×2 (08:47→22:01)
[2020-03-20 11:29] VITALS: BP 114/70
[2020-03-20 14:50] LABS: BASOPHILS # (AUTO) 0.1 X10'3 (0-0.2); BASOPHILS % (AUTO) 0.5 % (0-1); EOSINOPHILS # (AUTO) 0.1 X10'3 (0-0.9); EOSINOPHILS % (AUTO) 0.5 % (0-6); HEMATOCRIT 30.4 % (35.0-45.0); HEMOGLOBIN 10.1 g/dl (12.0-16.0); LYMPHOCYTES # (AUTO) 0.5 X10'3 (1.1-4.8); LYMPHOCYTES % (AUTO) 4.2 % (21-51); MEAN CORPUSCULAR HEMOGLOBIN 33.1 PG (27.0-31.0); MEAN CORPUSCULAR HGB CONC 33.4 g/dL (33.0-36.5); MEAN CORPUSCULAR VOLUME 99.3 FL (78-98); MEAN PLATELET VOLUME 6.8 FL (7.4-10.4); MONOCYTES # (AUTO) 1.3 X10'3 (0-0.9); MONOCYTES % (AUTO) 11.5 % (2-12); NEUTROPHILS # (AUTO) 9.7 X10'3 (1.8-7.7); NEUTROPHILS % (AUTO) 83.3 % (42-75); PLATELET COUNT 190 X10'3 (140-440); RED BLOOD COUNT 3.06 X10'6 (4.20-5.60); RED CELL DISTRIBUTION WIDTH 14.8 % (11.5-14.5); WHITE BLOOD COUNT 11.6 X10'3 (4.5-11.0)
[2020-03-20 14:57] LABS: ALBUMIN 2.1 G/DL (3.4-5.0); ANION GAP 7 (8-16); BLOOD UREA NITROGEN 31 MG/DL (7-18); BUN/CREATININE RATIO 26.1 (6.6-38.0); CALCIUM 7.8 MG/DL (8.5-10.1); CHLORIDE 96 MMOL/L (99-107); CREATININE 1.19 MG/DL (0.40-0.90); GLUCOSE 119 MG/DL (70-104); POTASSIUM 4.3 MMOL/L (3.5-5.1); SODIUM 125 MMOL/L (135-145); TOTAL CARBON DIOXIDE 21.9 MMOL/L (24-32); eGFR 46 ML/MIN
--- NOTE | 2020-03-20 15:21 | NUR ---
PAGER ID: [phone] MESSAGE: Rosita Quiroz: .labs are back. Addendum: 03/20/20 at 1524 by Liliam Jimenez RN PAGER ID: [phone] MESSAGE: Rosita Quiroz: .labs are back.
[2020-03-20] MEDS: sodium chloride 1gm tablet PO SCH ×2 (16:07→22:01)
--- NOTE | 2020-03-20 16:25 | NUR ---
PAGER ID: [phone] MESSAGE: Rosita QuirozB : patient has scheduled para at [facility] tomorrow. she's wondering if she will be getting it done here instead? yesenia [phone]
--- NOTE | 2020-03-20 17:53 | NUR ---
Student Medication Administration: For this medication-pass time frame, all medication were reviewed, dispensed, administered and documented per hospital policy by SN Zenon. Student documentation: I have reviewed and agree with all interventions, assessments performed and documented by SN Zenon.
[2020-03-20 18:00] VITALS: BP 95/68
--- NOTE | 2020-03-20 18:21 | NUR ---
Problems reprioritized. Patient report given, questions answered & plan of care reviewed with Rosa ALEXANDER
--- NOTE | 2020-03-20 18:30 | NUR ---
Patient in room KAILA 357B. I have received report from Cindy ALEXANDER and had the opportunity to ask questions and assume patient care.
[2020-03-21] MEDS: HYDROcodone/acetaminophen 5mg/325mg tablet PO PRN ×2 (00:41→07:27)
[2020-03-21] MEDS: clindamycin 600mg/D5W 50ml 50 ML IV SCH ×3 (02:37→14:00)
[2020-03-21 06:08] LABS: BASOPHILS % (AUTO) 0.7 % (0-1); EOSINOPHILS # (AUTO) 0.2 X10'3 (0-0.9); EOSINOPHILS % (AUTO) 2.8 % (0-6); HEMATOCRIT 26.2 % (35.0-45.0); HEMOGLOBIN 9.1 g/dl (12.0-16.0); LYMPHOCYTES # (AUTO) 0.7 X10'3 (1.1-4.8); LYMPHOCYTES % (AUTO) 10.1 % (21-51); MEAN CORPUSCULAR HEMOGLOBIN 33.8 PG (27.0-31.0); MEAN CORPUSCULAR HGB CONC 34.6 g/dL (33.0-36.5); MEAN CORPUSCULAR VOLUME 97.5 FL (78-98); MEAN PLATELET VOLUME 7.6 FL (7.4-10.4); MONOCYTES # (AUTO) 1.2 X10'3 (0-0.9); MONOCYTES % (AUTO) 17.2 % (2-12); NEUTROPHILS # (AUTO) 4.7 X10'3 (1.8-7.7); NEUTROPHILS % (AUTO) 69.2 % (42-75); PLATELET COUNT 159 X10'3 (140-440); RED BLOOD COUNT 2.68 X10'6 (4.20-5.60); RED CELL DISTRIBUTION WIDTH 14.3 % (11.5-14.5); WHITE BLOOD COUNT 6.8 X10'3 (4.5-11.0)
[2020-03-21 06:30] LABS: ALANINE AMINOTRANSFERASE 38 U/L (12-78); ALBUMIN 1.7 G/DL (3.4-5.0); ALBUMIN/GLOBULIN RATIO 0.5 (1.1-1.5); ALKALINE PHOSPHATASE 149 IU/L (46-116); ANION GAP 5 (8-16); ASPARTATE AMINO TRANSFERASE 73 U/L (10-37); BILIRUBIN,TOTAL 0.9 MG/DL (0.1-1.0); BLOOD UREA NITROGEN 29 MG/DL (7-18); BUN/CREATININE RATIO 30.2 (6.6-38.0); CALCIUM 7.5 MG/DL (8.5-10.1); CHLORIDE 98 MMOL/L (99-107); CREATININE 0.96 MG/DL (0.40-0.90); GLUCOSE 105 MG/DL (70-104); POTASSIUM 3.7 MMOL/L (3.5-5.1); SODIUM 127 MMOL/L (135-145); TOTAL CARBON DIOXIDE 24.2 MMOL/L (24-32); TOTAL PROTEIN 5.3 G/DL (6.4-8.2); eGFR 59 ML/MIN
--- NOTE | 2020-03-21 06:31 | NUR ---
Problems reprioritized. Patient report given, questions answered & plan of care reviewed with Suze ALEXANDER.
--- NOTE | 2020-03-21 06:32 | NUR ---
Problems reprioritized. Patient report given, questions answered & plan of care reviewed with Suze ALEXANDER.
[2020-03-21] MEDS: spironolactone 50 MG tablet PO SCH (07:24)
[2020-03-21] MEDS: sodium chloride 1gm tablet PO SCH ×2 (07:24→12:57)
[2020-03-21] MEDS: levoTHYROXINE 25mcg tablet PO SCH (07:24)
[2020-03-21] MEDS: lactobacillus rhamnosus 10,000 MMU CELLS/CAPSULE PO SCH (07:24)
[2020-03-21] MEDS: furosemide 40mg tablet PO SCH (07:25)
[2020-03-21] MEDS: rifaximin 550mg tablet PO SCH (07:27)
[2020-03-21] MEDS: lactulose 20gm/30ml cup PO SCH (07:27)
[2020-03-21 08:00] VITALS: BP 102/67
[2020-03-21 10:31] VITALS: BP 98/66
[2020-03-21 11:00] VITALS: BP 99/62
[2020-03-21] MEDS ORDERED: albumin (human) 25% 100 ML IV solution IV ONE (11:10)
[2020-03-21 11:12] VITALS: BP 99/62
[2020-03-21] MEDS ORDERED: LACT10SO32 PO (12:29)
[2020-03-21] MEDS ORDERED: CEPH500C5 PO (12:29)
--- NOTE | 2020-03-21 14:52 | NUR ---
Patient ready for discharge. Belongings gathered and sent with patient. PIV removed, cannula intact. Discharge instructions given. Told patient about her appointments and ride arranged by case management.
== END 2020-03-21 14:50 | disposition home or self-care (01) | DRG 280 ==
LOC: ER 07:49 → ED HOLD 11:06 → EDBEDREQ 11:30 → PCU 3S 12:04 → SUR 3N 22:52
PROVIDERS: ADMIT Internal Medicine; ATTEND Internal Medicine
PROC: 0W9G30Z Drainage of Peritoneal Cavity with Drainage Device, Percutaneous Approach (ICD-10-PCS; 2020-03-15)
PROC: 0W9G3ZZ Drainage of Peritoneal Cavity, Percutaneous Approach (ICD-10-PCS; principal; 2020-03-21)
DX: K70.31 Alcoholic cirrhosis of liver with ascites (principal); L03.115 Cellulitis of right lower limb; K72.10 Chronic hepatic failure without coma; E88.09 Other disorders of plasma-protein metabolism, not elsewhere classified; L03.116 Cellulitis of left lower limb; E87.1 Hypo-osmolality and hyponatremia; D64.9 Anemia, unspecified; E03.9 Hypothyroidism, unspecified; K76.9 Liver disease, unspecified; Z59.0 Homelessness; Z83.3 Family history of diabetes mellitus; Z87.891 Personal history of nicotine dependence
CPT/HCPCS: 36415; 49083; 71045; 80048; 80053; 81001; 82140; 83880; 84157; 85025; 85610; 86140; 87070; 87081; 89051; 93005; 96365; 97116; 97161; 97530; 99285; G0378; J0295; J0696; J1940; J3490; J7030; P9047; Q0163

== ENCOUNTER 2020-03-24 11:59 | Emergency (ER) | payer MEDICAID ==
[~2020-03-24] VITALS: Ht 172.7 cm; Wt 80.0 kg
[~2020-03-24 11:59] MED LIST changes: -CEFD300C3 PO; +CEPH500C5 PO; +FURO-149 PO; +LEVO50TA8 PO; +SPIR100T5 PO
[2020-03-24] MEDS ORDERED: OXYC5CAP19 PO (12:19)
[2020-03-24] MEDS ORDERED: oxyCODONE IR 5mg (immed. release) tablet PO ONE (12:25)
[2020-03-24 13:14] VITALS: BP 141/89
[2020-03-24] MEDS ORDERED: OXYC-134 PO (18:00)
== END 2020-03-24 13:16 | disposition home or self-care (01) ==
LOC: ER 12:00
DX: S39.012A Strain of muscle, fascia and tendon of lower back, initial encounter (principal); R18.8 Other ascites; K70.30 Alcoholic cirrhosis of liver without ascites; M54.89 Other dorsalgia; Z72.89 Other problems related to lifestyle; Z56.0 Unemployment, unspecified; Z59.0 Homelessness; Z79.2 Long term (current) use of antibiotics; Z79.899 Other long term (current) drug therapy; X58.XXXA Exposure to other specified factors, initial encounter; Y93.89 Activity, other specified; Y92.89 Other specified places as the place of occurrence of the external cause; Y99.8 Other external cause status
CPT/HCPCS: 99284

== ENCOUNTER 2020-03-25 15:08 | Emergency (ER) | payer MEDICAID ==
[~2020-03-25] VITALS: Ht 172.7 cm; Wt 61.5 kg
[~2020-03-25 15:08] MED LIST changes: +OXYC-134 PO; +OXYC5CAP19 PO
[2020-03-25 15:09] VITALS: BP 103/59
[2020-03-25 15:32] LABS: BASOPHILS # (AUTO) 0.1 X10'3 (0-0.2); BASOPHILS % (AUTO) 0.7 % (0-1); EOSINOPHILS # (AUTO) 0.4 X10'3 (0-0.9); EOSINOPHILS % (AUTO) 4.6 % (0-6); HEMATOCRIT 29.6 % (35.0-45.0); HEMOGLOBIN 10.1 g/dl (12.0-16.0); LYMPHOCYTES % (AUTO) 12.3 % (21-51); MEAN CORPUSCULAR HEMOGLOBIN 33.5 PG (27.0-31.0); MEAN CORPUSCULAR HGB CONC 34.2 g/dL (33.0-36.5); MEAN CORPUSCULAR VOLUME 97.8 FL (78-98); MONOCYTES # (AUTO) 1.6 X10'3 (0-0.9); MONOCYTES % (AUTO) 19.5 % (2-12); NEUTROPHILS # (AUTO) 5.2 X10'3 (1.8-7.7); NEUTROPHILS % (AUTO) 62.9 % (42-75); PLATELET COUNT 234 X10'3 (140-440); RED BLOOD COUNT 3.03 X10'6 (4.20-5.60); RED CELL DISTRIBUTION WIDTH 14.1 % (11.5-14.5); WHITE BLOOD COUNT 8.3 X10'3 (4.5-11.0)
--- NOTE | 2020-03-25 15:33 | NUR ---
DIEGO Monk at bedside, performing ultrasound.
[2020-03-25 15:44] LABS: ALANINE AMINOTRANSFERASE 42 U/L (12-78); ALBUMIN 2.1 G/DL (3.4-5.0); ALBUMIN/GLOBULIN RATIO 0.6 (1.1-1.5); ALKALINE PHOSPHATASE 206 IU/L (46-116); ANION GAP 5 (8-16); ASPARTATE AMINO TRANSFERASE 73 U/L (10-37); BILIRUBIN,TOTAL 1.1 MG/DL (0.1-1.0); BLOOD UREA NITROGEN 21 MG/DL (7-18); BUN/CREATININE RATIO 25.6 (6.6-38.0); CALCIUM 8.2 MG/DL (8.5-10.1); CHLORIDE 100 MMOL/L (99-107); CREATININE 0.82 MG/DL (0.40-0.90); GLUCOSE 102 MG/DL (70-104); POTASSIUM 4.6 MMOL/L (3.5-5.1); SODIUM 131 MMOL/L (135-145); TOTAL CARBON DIOXIDE 26.4 MMOL/L (24-32); TOTAL PROTEIN 5.8 G/DL (6.4-8.2); eGFR 71 ML/MIN
[2020-03-25 15:55] LABS: PARTIAL THROMBOPLASTIN TIME 29 SECONDS (22-32)
[2020-03-25 16:16] LABS: TOTAL CELLS COUNTED 100
[2020-03-25 16:17] LABS: BURR CELLS FEW; HYPOCHROMASIA 1+; PLATELET ESTIMATE NORMAL
== END 2020-03-25 16:27 | disposition home or self-care (01) ==
LOC: ER 15:08
DX: D53.9 Nutritional anemia, unspecified (principal); K70.30 Alcoholic cirrhosis of liver without ascites; Z56.0 Unemployment, unspecified; Z59.0 Homelessness; Z79.899 Other long term (current) drug therapy
CPT/HCPCS: 36415; 80053; 85025; 85610; 85730; 99284

== ENCOUNTER 2020-03-29 18:39 | Emergency (ER) | payer MEDICAID ==
[~2020-03-29] VITALS: Ht 172.7 cm; Wt 65.9 kg
[2020-03-29 19:33] VITALS: BP 102/52
== END 2020-03-29 19:35 | disposition home or self-care (01) ==
LOC: ER 18:39
DX: R18.8 Other ascites (principal); R06.00 Dyspnea, unspecified; Z59.0 Homelessness; Z56.0 Unemployment, unspecified; Z79.899 Other long term (current) drug therapy
CPT/HCPCS: 71045; 99283

== ENCOUNTER 2020-04-04 06:48 | Day surgery (SDC) | payer MEDICAID ==
[2020-04-04] VITALS (13 sets, daily range): BP systolic 104–140; BP diastolic 60–80
[~2020-04-04] VITALS: Ht 172.7 cm; Wt 82.2 kg
[2020-04-04] MEDS ORDERED: albumin 25% 100mL bottle x 1 IV PRN (07:10)
[2020-04-04] MEDS ORDERED: LACT10SO PO (07:47)
[2020-04-04] MEDS ORDERED: PROP10TA10 PO (07:48)
[2020-04-04] MEDS ORDERED: SPIR50TA PO (07:49)
[2020-04-04] MEDS ORDERED: ibuprofen tablet 400 MG TABLET PO ONE (09:15)
== END 2020-04-04 12:02 | disposition home or self-care (01) ==
LOC: SSTAY O 06:48
PROVIDERS: ATTEND Radiology Diagnostic Radiology
DX: R18.8 Other ascites (principal); K74.60 Unspecified cirrhosis of liver; E87.1 Hypo-osmolality and hyponatremia; K72.90 Hepatic failure, unspecified without coma; E03.9 Hypothyroidism, unspecified; Z79.899 Other long term (current) drug therapy
CPT/HCPCS: 49083; P9047

== ENCOUNTER 2020-04-11 06:55 | Day surgery (SDC) | payer MEDICAID ==
[~2020-04-11] VITALS: Ht 172.7 cm; Wt 83.0 kg
[~2020-04-11 06:55] MED LIST changes: -CEPH500C5 PO; +LACT10SO PO; -LACT10SO32 PO; -OXYC-134 PO; -OXYC5CAP19 PO; -RIFA550T PO; -SPIR100T5 PO
[2020-04-11 07:51] VITALS: BP 120/69
[2020-04-11 08:09] VITALS: BP 109/76
[2020-04-11 08:15] VITALS: BP 113/71
[2020-04-11] MEDS ORDERED: ibuprofen tablet 400 MG TABLET PO ONE (08:20)
[2020-04-11 08:30] VITALS: BP 112/73
[2020-04-11 08:45] VITALS: BP 102/58
[2020-04-11] MEDS ORDERED: albumin (human) 25% 100 ML IV solution IV SCH (08:45)
[2020-04-11 09:00] VITALS: BP 113/70
== END 2020-04-11 10:47 | disposition home or self-care (01) ==
LOC: SSTAY O 06:55
PROVIDERS: ATTEND Radiology Diagnostic Radiology
DX: R18.8 Other ascites (principal); K74.60 Unspecified cirrhosis of liver; E87.1 Hypo-osmolality and hyponatremia; E03.9 Hypothyroidism, unspecified; Z79.899 Other long term (current) drug therapy
CPT/HCPCS: 49083; P9047

== ENCOUNTER 2020-04-15 20:16 | Emergency (ER) | payer MEDICAID ==
[~2020-04-15] VITALS: Ht 172.7 cm; Wt 75.0 kg
[2020-04-15 21:00] LABS: BASOPHILS % (AUTO) 0.7 % (0-1); EOSINOPHILS # (AUTO) 0.2 X10'3 (0-0.9); EOSINOPHILS % (AUTO) 3.9 % (0-6); HEMATOCRIT 30.6 % (35.0-45.0); HEMOGLOBIN 10.6 g/dl (12.0-16.0); LYMPHOCYTES # (AUTO) 1.2 X10'3 (1.1-4.8); LYMPHOCYTES % (AUTO) 19.1 % (21-51); MEAN CORPUSCULAR HEMOGLOBIN 33.4 PG (27.0-31.0); MEAN CORPUSCULAR HGB CONC 34.6 g/dL (33.0-36.5); MEAN CORPUSCULAR VOLUME 96.6 FL (78-98); MEAN PLATELET VOLUME 6.3 FL (7.4-10.4); MONOCYTES # (AUTO) 1.2 X10'3 (0-0.9); MONOCYTES % (AUTO) 19.2 % (2-12); NEUTROPHILS # (AUTO) 3.5 X10'3 (1.8-7.7); NEUTROPHILS % (AUTO) 57.1 % (42-75); PLATELET COUNT 214 X10'3 (140-440); RED BLOOD COUNT 3.17 X10'6 (4.20-5.60); RED CELL DISTRIBUTION WIDTH 14.3 % (11.5-14.5); WHITE BLOOD COUNT 6.2 X10'3 (4.5-11.0)
[2020-04-15 21:12] LABS: ALANINE AMINOTRANSFERASE 54 U/L (12-78); ALBUMIN 2.5 G/DL (3.4-5.0); ALBUMIN/GLOBULIN RATIO 0.7 (1.1-1.5); ALKALINE PHOSPHATASE 218 IU/L (46-116); ANION GAP 7 (8-16); ASPARTATE AMINO TRANSFERASE 88 U/L (10-37); BILIRUBIN,TOTAL 1.1 MG/DL (0.1-1.0); BLOOD UREA NITROGEN 17 MG/DL (7-18); BUN/CREATININE RATIO 23.9 (6.6-38.0); CALCIUM 8.1 MG/DL (8.5-10.1); CHLORIDE 103 MMOL/L (99-107); CREATININE 0.71 MG/DL (0.40-0.90); GLUCOSE 86 MG/DL (70-104); POTASSIUM 3.9 MMOL/L (3.5-5.1); SODIUM 136 MMOL/L (135-145); TOTAL CARBON DIOXIDE 26.5 MMOL/L (24-32); eGFR 83 ML/MIN
[2020-04-15 21:17] LABS: PLATELET ESTIMATE NORMAL; TOTAL CELLS COUNTED 100
[2020-04-15] MEDS ORDERED: LIDOcaine 1% W/epiNEPHrine 1:100,000 20ml vial SQ ONE (22:55)
[2020-04-16 00:49] VITALS: BP 132/78
== END 2020-04-16 00:53 | disposition home or self-care (01) ==
LOC: ER 20:17
DX: R18.8 Other ascites (principal); R14.0 Abdominal distension (gaseous); Z59.0 Homelessness; Z56.0 Unemployment, unspecified; Z79.899 Other long term (current) drug therapy
CPT/HCPCS: 49083; 80053; 85025; 99285

== ENCOUNTER 2020-04-17 07:08 | Day surgery (SDC) | payer MEDICAID ==
[~2020-04-17] VITALS: Ht 172.7 cm; Wt 81.8 kg
[~2020-04-17 07:08] MED LIST changes: +CEPH500C5 PO; +LACT10SO32 PO; +OXYC-134 PO; +OXYC5CAP19 PO; +PROP10TA10 PO; +RIFA550T PO; +SPIR100T5 PO; +SPIR50TA PO
[2020-04-17] MEDS ORDERED: albumin 25% 100mL bottle x 1 IV PRN (07:30)
[2020-04-17] MEDS ORDERED: normal saline 1000ml 1,000 ML IV PRN (07:30)
[2020-04-17 07:45] VITALS: BP 104/77
[2020-04-17 08:21] VITALS: BP 104/77
[2020-04-17 08:45] VITALS: BP 112/75
== END 2020-04-17 08:50 | disposition home or self-care (01) ==
LOC: SSTAY O 07:08
PROVIDERS: ATTEND Radiology Diagnostic Radiology
DX: R18.8 Other ascites (principal); K74.60 Unspecified cirrhosis of liver; E03.9 Hypothyroidism, unspecified; Z79.899 Other long term (current) drug therapy
CPT/HCPCS: 49083; 76705

== ENCOUNTER 2020-04-20 11:29 | Emergency (ER) | payer MEDICAID ==
[~2020-04-20] VITALS: Ht 172.7 cm; Wt 85.4 kg
[~2020-04-20 11:29] MED LIST changes: -CEPH500C5 PO; -FURO-149 PO; -LACT10SO32 PO; -LEVO50TA8 PO; -OXYC-134 PO; -OXYC5CAP19 PO; -PROP10TA10 PO; -RIFA550T PO; -SPIR100T5 PO; -SPIR50TA PO
[2020-04-20 11:36] VITALS: BP 121/85
[2020-04-20] MEDS ORDERED: CEPH500C5 PO (12:22)
[2020-04-20] MEDS ORDERED: SPIR50TA5 PO (12:22)
[2020-04-20] MEDS ORDERED: spironolactone 50 MG tablet PO STA (12:22)
[2020-04-20] MEDS ORDERED: cephalexin 250mg capsule PO ONE (12:25)
== END 2020-04-20 12:56 | disposition home or self-care (01) ==
LOC: ER 11:30
DX: S81.812A Laceration without foreign body, left lower leg, initial encounter (principal); K70.31 Alcoholic cirrhosis of liver with ascites; R10.84 Generalized abdominal pain; M79.89 Other specified soft tissue disorders; Z56.0 Unemployment, unspecified; Z59.0 Homelessness; Z79.2 Long term (current) use of antibiotics; Z79.899 Other long term (current) drug therapy; W22.8XXA Striking against or struck by other objects, initial encounter; Y93.89 Activity, other specified; Y92.89 Other specified places as the place of occurrence of the external cause; Y99.8 Other external cause status
CPT/HCPCS: 99284

== ENCOUNTER 2020-04-21 06:24 | Emergency (ER) | payer MEDICAID ==
[~2020-04-21] VITALS: Ht 172.7 cm; Wt 85.1 kg
[~2020-04-21 06:24] MED LIST changes: +CEPH500C5 PO; +SPIR50TA5 PO
[2020-04-21] MEDS ORDERED: LIDOcaine 1% W/epiNEPHrine 1:100,000 20ml vial SQ ONE (06:45)
[2020-04-21 08:13] LABS: ALANINE AMINOTRANSFERASE 61 U/L (12-78); ALBUMIN 2.5 G/DL (3.4-5.0); ALBUMIN/GLOBULIN RATIO 0.8 (1.1-1.5); ALKALINE PHOSPHATASE 259 IU/L (46-116); ANION GAP 6 (8-16); ASPARTATE AMINO TRANSFERASE 111 U/L (10-37); BILIRUBIN,TOTAL 1.2 MG/DL (0.1-1.0); BLOOD UREA NITROGEN 12 MG/DL (7-18); BUN/CREATININE RATIO 19.7 (6.6-38.0); CALCIUM 8.1 MG/DL (8.5-10.1); CHLORIDE 103 MMOL/L (99-107); CREATININE 0.61 MG/DL (0.40-0.90); GLUCOSE 102 MG/DL (70-104); MEAN CORPUSCULAR HEMOGLOBIN 33.3 PG (27.0-31.0); POTASSIUM 3.9 MMOL/L (3.5-5.1); SODIUM 134 MMOL/L (135-145); TOTAL PROTEIN 5.8 G/DL (6.4-8.2); WHITE BLOOD COUNT 5.6 X10'3 (4.5-11.0); eGFR > 90 ML/MIN
[2020-04-21 08:17] LABS: HEMATOCRIT 30.3 % (35.0-45.0); HEMOGLOBIN 10.3 g/dl (12.0-16.0); MEAN CORPUSCULAR HGB CONC 34.2 g/dL (33.0-36.5); MEAN CORPUSCULAR VOLUME 97.6 FL (78-98); PLATELET COUNT 214 X10'3 (140-440); RED CELL DISTRIBUTION WIDTH 14.7 % (11.5-14.5)
[2020-04-21 09:12] LABS: CLARITY,URINE CLEAR (Clear); COLOR,URINE YELLOW (Yellow); GLUCOSE, URINE NEGATIVE (Neg); KETONES,URINE NEGATIVE (Neg); LEUKOCYTE ESTERASE ,URINE NEGATIVE (Neg); NITRITES, URINE NEGATIVE (Neg); OCCULT BLOOD,URINE NEGATIVE (Neg); PH,URINE 5.5 (4.8-8.0); PROTEIN,URINE NEGATIVE (Neg); UROBILINOGEN,URINE 0.2 E.U/dL (0.2-1.0)
[2020-04-21 09:14] LABS: TOTAL CELLS COUNTED 100
[2020-04-21 09:15] LABS: PLATELET ESTIMATE NORMAL
[2020-04-21 09:16] LABS: BFAPPEAR CLEAR
[2020-04-21 09:17] LABS: BF RBC COUNT 100 /CU MM; BF WBC COUNT 74 /CU MM (0-1000); BFVOLUME 17 ML
[2020-04-21 09:22] LABS: UA COLLECTION TYPE CLN CATCH MIDSTREAM
[2020-04-21 09:44] LABS: LYMPHOCYTES,BODY FLUID 38 %; MONOCYTES,BODY FLUID 61 %; NEUTROPHILS,BODY FLUID 1 %
[2020-04-21 10:00] VITALS: BP 109/67
== END 2020-04-21 10:01 | disposition home or self-care (01) ==
LOC: ER 06:24
DX: K70.31 Alcoholic cirrhosis of liver with ascites (principal); Z59.0 Homelessness; Z56.0 Unemployment, unspecified; Z79.899 Other long term (current) drug therapy; Z72.89 Other problems related to lifestyle
CPT/HCPCS: 36415; 49083; 80053; 81003; 84145; 85025; 85610; 87070; 89051; 99285

== ENCOUNTER 2020-04-25 20:32 | Emergency (ER) | payer MEDICAID ==
[~2020-04-25] VITALS: Ht 172.7 cm; Wt 84.0 kg
[2020-04-25 22:43] VITALS: BP 99/68
== END 2020-04-25 22:45 | disposition home or self-care (01) ==
LOC: ER 20:32
DX: R18.8 Other ascites (principal); R06.02 Shortness of breath; R05 Cough; Z72.89 Other problems related to lifestyle; Z56.0 Unemployment, unspecified; Z59.0 Homelessness; Z79.2 Long term (current) use of antibiotics; Z79.899 Other long term (current) drug therapy
CPT/HCPCS: 12001; 99282; 99285

== ENCOUNTER 2020-04-28 06:40 | Day surgery (SDC) | payer MEDICAID ==
[~2020-04-28] VITALS: Ht 172.7 cm; Wt 85.6 kg
[2020-04-28] VITALS (7 sets, daily range): BP systolic 95–105; BP diastolic 60–71
[2020-04-28] MEDS ORDERED: normal saline 1000ml 1,000 ML IV PRN (07:05)
[2020-04-28] MEDS ORDERED: albumin 25% 100mL bottle x 1 IV PRN (07:05)
[2020-04-28] MEDS ORDERED: LEVO50TA8 PO (07:26)
[2020-04-28] MEDS ORDERED: CEPH500C2 PO (07:26)
[2020-04-28] MEDS ORDERED: PROP10TA10 PO (07:26)
[2020-04-28] MEDS ORDERED: SPIR50TA PO (07:26)
[2020-04-28] MEDS ORDERED: FURO40TA4 PO (07:26)
[2020-04-28] MEDS ORDERED: RIFA550T PO (07:26)
[2020-04-28] MEDS ORDERED: LACT10SO57 PO (08:25)
== END 2020-04-28 10:45 | disposition home or self-care (01) ==
LOC: SSTAY O 06:40
PROVIDERS: ATTEND Radiology Diagnostic Radiology
DX: R18.8 Other ascites (principal); K74.60 Unspecified cirrhosis of liver; K72.90 Hepatic failure, unspecified without coma; E87.1 Hypo-osmolality and hyponatremia; E03.9 Hypothyroidism, unspecified; Z79.899 Other long term (current) drug therapy
CPT/HCPCS: 49083; P9047

== ENCOUNTER 2020-05-05 07:57 | Day surgery (SDC) | payer MEDICAID ==
[~2020-05-05] VITALS: Ht 172.7 cm; Wt 87.0 kg
[~2020-05-05 07:57] MED LIST changes: +CEPH500C2 PO; -CEPH500C5 PO; +FURO40TA4 PO; -LACT10SO PO; +LACT10SO57 PO; +LEVO50TA8 PO; +PROP10TA10 PO; +RIFA550T PO; +SPIR50TA PO; -SPIR50TA5 PO
[2020-05-05 08:04] VITALS: BP 119/67
[2020-05-05] MEDS ORDERED: normal saline 1000ml 1,000 ML IV PRN (08:05)
[2020-05-05] MEDS ORDERED: albumin 25% 100mL bottle x 1 IV PRN (08:05)
[2020-05-05 08:45] VITALS: BP 93/62
[2020-05-05 09:31] VITALS: BP 145/103
[2020-05-05 09:45] VITALS: BP 97/44
[2020-05-05 10:00] VITALS: BP 146/61
== END 2020-05-05 10:30 | disposition home or self-care (01) ==
LOC: SSTAY O 07:57
PROVIDERS: ATTEND Radiology Vascular & Interventional Radiology
DX: R18.8 Other ascites (principal); E03.9 Hypothyroidism, unspecified; E87.1 Hypo-osmolality and hyponatremia; K72.90 Hepatic failure, unspecified without coma; K74.60 Unspecified cirrhosis of liver; Z79.899 Other long term (current) drug therapy
CPT/HCPCS: 49083; P9047

== ENCOUNTER 2020-05-12 07:55 | Day surgery (SDC) | payer MEDICAID ==
[~2020-05-12] VITALS: Ht 172.7 cm; Wt 88.1 kg
[2020-05-12] VITALS (10 sets, daily range): BP systolic 93–113; BP diastolic 57–75
[2020-05-12] MEDS ORDERED: albumin 25% 100mL bottle x 1 IV PRN (08:10)
[2020-05-12] MEDS ORDERED: normal saline 1000ml 1,000 ML IV PRN (08:10)
== END 2020-05-12 10:50 | disposition home or self-care (01) ==
LOC: SSTAY O 07:55
PROVIDERS: ATTEND Radiology Vascular & Interventional Radiology
DX: K70.31 Alcoholic cirrhosis of liver with ascites (principal); E03.9 Hypothyroidism, unspecified; E87.1 Hypo-osmolality and hyponatremia; K72.90 Hepatic failure, unspecified without coma; Z79.899 Other long term (current) drug therapy
CPT/HCPCS: 49083; P9047

== ENCOUNTER 2020-05-19 08:11 | Day surgery (SDC) | payer MEDICAID ==
[2020-05-19] VITALS (10 sets, daily range): BP systolic 106–152; BP diastolic 63–87
[~2020-05-19] VITALS: Ht 172.7 cm; Wt 86.8 kg
[2020-05-19] MEDS ORDERED: albumin 25% 100mL bottle x 1 IV PRN (08:35)
[2020-05-19] MEDS ORDERED: normal saline 1000ml 1,000 ML IV PRN (08:35)
== END 2020-05-19 11:55 | disposition home or self-care (01) ==
LOC: SSTAY O 08:11
PROVIDERS: ATTEND Radiology Diagnostic Radiology
DX: R18.8 Other ascites (principal); K74.60 Unspecified cirrhosis of liver; E03.9 Hypothyroidism, unspecified; Z79.899 Other long term (current) drug therapy
CPT/HCPCS: 49083; C1729; P9047

== ENCOUNTER 2020-05-26 08:08 | Day surgery (SDC) | payer MEDICAID ==
[~2020-05-26] VITALS: Ht 172.7 cm; Wt 83.1 kg
[2020-05-26 08:21] VITALS: BP 110/64
[2020-05-26] MEDS ORDERED: albumin 25% 100mL bottle x 1 IV PRN (08:25)
[2020-05-26] MEDS ORDERED: normal saline 1000ml 1,000 ML IV PRN (08:25)
[2020-05-26 09:00] VITALS: BP_SYST 103; BP_DIAS 58; BP_DIAS 62
[2020-05-26 09:21] VITALS: BP 107/70
== END 2020-05-26 09:35 | disposition home or self-care (01) ==
LOC: SSTAY O 08:08
PROVIDERS: ATTEND Radiology Diagnostic Radiology
DX: R18.8 Other ascites (principal); K74.60 Unspecified cirrhosis of liver; E87.1 Hypo-osmolality and hyponatremia; E03.9 Hypothyroidism, unspecified; K72.90 Hepatic failure, unspecified without coma; Z79.899 Other long term (current) drug therapy
CPT/HCPCS: 49083

== ENCOUNTER 2020-06-02 07:59 | Day surgery (SDC) | payer MEDICAID ==
[~2020-06-02] VITALS: Ht 172.7 cm; Wt 83.6 kg
[~2020-06-02 07:59] MED LIST changes: -CEPH500C2 PO; -RIFA550T PO
[2020-06-02 08:15] VITALS: BP 106/67
[2020-06-02] MEDS ORDERED: normal saline 1000ml 1,000 ML IV PRN (08:40)
[2020-06-02] MEDS ORDERED: albumin 25% 100mL bottle x 1 IV PRN (08:40)
== END 2020-06-02 10:05 | disposition home or self-care (01) ==
LOC: SSTAY O 07:59
PROVIDERS: ATTEND Radiology Vascular & Interventional Radiology
DX: R18.8 Other ascites (principal); R14.0 Abdominal distension (gaseous); K74.60 Unspecified cirrhosis of liver; E03.9 Hypothyroidism, unspecified; E87.1 Hypo-osmolality and hyponatremia; K72.90 Hepatic failure, unspecified without coma; Z79.899 Other long term (current) drug therapy
CPT/HCPCS: 76705

== ENCOUNTER 2020-06-05 07:30 | Day surgery (SDC) | payer MEDICAID ==
[2020-06-05] VITALS (9 sets, daily range): BP systolic 102–132; BP diastolic 59–95
[~2020-06-05] VITALS: Ht 172.7 cm; Wt 84.6 kg
[2020-06-05] MEDS ORDERED: normal saline 1000ml 1,000 ML IV PRN (07:55)
[2020-06-05] MEDS ORDERED: albumin 25% 100mL bottle x 1 IV PRN (07:55)
== END 2020-06-05 12:00 | disposition home or self-care (01) ==
LOC: SSTAY O 07:30
PROVIDERS: ATTEND Radiology Vascular & Interventional Radiology
DX: R18.8 Other ascites (principal); K74.60 Unspecified cirrhosis of liver; E87.1 Hypo-osmolality and hyponatremia; E03.9 Hypothyroidism, unspecified; Z79.899 Other long term (current) drug therapy
CPT/HCPCS: 49083; P9047

== ENCOUNTER 2020-06-12 06:58 | Day surgery (SDC) | payer MEDICAID ==
[2020-06-12] VITALS (10 sets, daily range): BP systolic 100–127; BP diastolic 56–72
[~2020-06-12] VITALS: Ht 172.7 cm; Wt 82.9 kg
[2020-06-12] MEDS ORDERED: GABA-530 PO (07:19)
[2020-06-12] MEDS ORDERED: normal saline 1000ml 1,000 ML IV PRN (07:20)
[2020-06-12] MEDS: albumin 25% 100mL bottle x 1 IV PRN ×2 (09:02→09:45)
== END 2020-06-12 10:35 | disposition home or self-care (01) ==
LOC: SSTAY O 06:58
PROVIDERS: ATTEND Radiology Vascular & Interventional Radiology
DX: R18.8 Other ascites (principal); K74.60 Unspecified cirrhosis of liver; E87.1 Hypo-osmolality and hyponatremia; E03.9 Hypothyroidism, unspecified; K72.90 Hepatic failure, unspecified without coma; Z79.899 Other long term (current) drug therapy
CPT/HCPCS: 49083; P9047

== ENCOUNTER 2020-06-19 06:54 | Day surgery (SDC) | payer MEDICAID ==
[2020-06-19] VITALS (8 sets, daily range): BP systolic 90–108; BP diastolic 48–66
[~2020-06-19] VITALS: Ht 172.7 cm; Wt 77.1 kg
[~2020-06-19 06:54] MED LIST changes: +GABA-530 PO
[2020-06-19] MEDS ORDERED: normal saline 1000ml 1,000 ML IV PRN (07:30)
[2020-06-19] MEDS ORDERED: albumin 25% 100mL bottle x 1 IV PRN (07:30)
[2020-06-19] MEDS ORDERED: GABA-530 PO (07:36)
--- NOTE | 2020-06-19 10:53 | NUR ---
Pt reported clear, yellow, and nonodorous urine Addendum: 06/19/20 at 1056 by Melba Abreu STUDENT JOCELINE Amended: Links added.
== END 2020-06-19 11:30 | disposition home or self-care (01) ==
LOC: SSTAY O 06:54
PROVIDERS: ATTEND Radiology Vascular & Interventional Radiology
DX: R18.8 Other ascites (principal)
CPT/HCPCS: 49083; P9047

== ENCOUNTER 2020-06-27 07:08 | Day surgery (SDC) | payer MEDICAID ==
[~2020-06-27] VITALS: Ht 172.7 cm; Wt 75.8 kg
[2020-06-27] VITALS (9 sets, daily range): BP systolic 100–127; BP diastolic 44–77
[2020-06-27] MEDS ORDERED: albumin 25% 100mL bottle x 1 IV PRN (07:25)
[2020-06-27] MEDS ORDERED: normal saline 1000ml 1,000 ML IV PRN (07:25)
== END 2020-06-27 10:35 | disposition home or self-care (01) ==
LOC: SSTAY O 07:08
PROVIDERS: ATTEND Radiology Diagnostic Radiology
DX: R18.8 Other ascites (principal); K74.60 Unspecified cirrhosis of liver; E87.1 Hypo-osmolality and hyponatremia; E03.9 Hypothyroidism, unspecified; K72.90 Hepatic failure, unspecified without coma; Z79.899 Other long term (current) drug therapy
CPT/HCPCS: 49083; P9047

== ENCOUNTER 2020-07-01 10:49 | Day surgery (SDC) | payer MEDICAID ==
[~2020-07-01] VITALS: Ht 172.7 cm; Wt 68.2 kg
[2020-07-01 10:58] VITALS: BP 121/78
[2020-07-01] MEDS ORDERED: LIDOcaine Viscous 15ml cup ONE (11:09)
[2020-07-01] MEDS ORDERED: fentaNYL/PF 50MCG/1 ML 2ML syringe ONE (11:09)
[2020-07-01] MEDS ORDERED: MIDAZolam 5mg/5ml vial ONE (11:09)
[2020-07-01 11:38] VITALS: BP 121/78
[2020-07-01 11:48] VITALS: BP 117/77
[2020-07-01 11:58] VITALS: BP 115/73
[2020-07-01 12:08] VITALS: BP 114/52
== END 2020-07-01 13:02 | disposition home or self-care (01) ==
LOC: GI LAB 10:49
PROVIDERS: ATTEND Internal Medicine Gastroenterology
DX: I85.00 Esophageal varices without bleeding (principal); K74.60 Unspecified cirrhosis of liver; K29.70 Gastritis, unspecified, without bleeding; K22.8 Other specified diseases of esophagus; K29.80 Duodenitis without bleeding
CPT/HCPCS: 43239; 99152; J2250; J3010; J7040; A4620

== ENCOUNTER 2020-07-04 08:35 | Day surgery (SDC) | payer MEDICAID ==
[2020-07-04] VITALS (7 sets, daily range): BP systolic 99–117; BP diastolic 63–75
[~2020-07-04] VITALS: Ht 172.7 cm; Wt 75.3 kg
[2020-07-04] MEDS ORDERED: normal saline 1000ml 1,000 ML IV PRN (08:55)
[2020-07-04] MEDS ORDERED: albumin 25% 100mL bottle x 1 IV PRN (08:55)
== END 2020-07-04 11:10 | disposition home or self-care (01) ==
LOC: SSTAY O 08:35
PROVIDERS: ATTEND Radiology Vascular & Interventional Radiology
DX: R18.8 Other ascites (principal); K74.60 Unspecified cirrhosis of liver; E87.1 Hypo-osmolality and hyponatremia; E03.9 Hypothyroidism, unspecified; Z79.899 Other long term (current) drug therapy
CPT/HCPCS: 49083; P9047

== ENCOUNTER 2020-07-10 08:00 | Day surgery (SDC) | payer MEDICAID ==
[2020-07-10] VITALS (8 sets, daily range): BP systolic 98–144; BP diastolic 59–77
[~2020-07-10] VITALS: Ht 172.7 cm; Wt 72.3 kg
[2020-07-10] MEDS ORDERED: albumin 25% 100mL bottle x 1 IV PRN (08:20)
[2020-07-10] MEDS ORDERED: normal saline 1000ml 1,000 ML IV PRN (08:20)
== END 2020-07-10 11:00 | disposition home or self-care (01) ==
LOC: SSTAY O 08:00
PROVIDERS: ATTEND Radiology Diagnostic Radiology
DX: R18.8 Other ascites (principal); K74.60 Unspecified cirrhosis of liver; E87.1 Hypo-osmolality and hyponatremia; E03.9 Hypothyroidism, unspecified; K72.90 Hepatic failure, unspecified without coma; Z79.899 Other long term (current) drug therapy
CPT/HCPCS: 49083; P9047

== ENCOUNTER 2020-07-17 07:13 | Day surgery (SDC) | payer MEDICAID ==
[2020-07-17] VITALS (7 sets, daily range): BP systolic 106–134; BP diastolic 64–98
[~2020-07-17] VITALS: Ht 172.7 cm; Wt 71.9 kg
[2020-07-17] MEDS ORDERED: normal saline 1000ml 1,000 ML IV PRN (07:45)
[2020-07-17] MEDS ORDERED: albumin 25% 100mL bottle x 1 IV PRN (07:45)
[2020-07-17] MEDS ORDERED: RIFA550T PO (07:59)
== END 2020-07-17 11:00 | disposition home or self-care (01) ==
LOC: SSTAY O 07:13
PROVIDERS: ATTEND Radiology Vascular & Interventional Radiology
DX: R18.8 Other ascites (principal); K74.60 Unspecified cirrhosis of liver; E87.1 Hypo-osmolality and hyponatremia; E03.9 Hypothyroidism, unspecified; K72.90 Hepatic failure, unspecified without coma; Z79.899 Other long term (current) drug therapy
CPT/HCPCS: 49083; P9047

== ENCOUNTER 2020-07-24 06:53 | Day surgery (SDC) | payer MEDICAID ==
[2020-07-24] VITALS (9 sets, daily range): BP systolic 104–146; BP diastolic 64–79
[~2020-07-24] VITALS: Ht 172.7 cm; Wt 73.5 kg
[~2020-07-24 06:53] MED LIST changes: -PROP10TA10 PO; +RIFA550T PO
[2020-07-24] MEDS ORDERED: albumin 25% 100mL bottle x 1 IV PRN (07:15)
[2020-07-24] MEDS ORDERED: normal saline 1000ml 1,000 ML IV PRN (07:15)
[2020-07-24] MEDS ORDERED: FERR-121 PO (08:26)
[2020-07-24] MEDS ORDERED: POTA10TA19 PO (08:26)
[2020-07-24] MEDS ORDERED: OMEP20CA15 PO (08:26)
[2020-07-24] MEDS ORDERED: VITA-268 PO (08:26)
[2020-07-24] MEDS ORDERED: MULT-1085 PO (08:26)
[2020-07-24] MEDS ORDERED: CHOL400T57 PO (08:26)
[2020-07-24] MEDS ORDERED: ZINC220C11 PO (08:26)
[2020-07-24] MEDS ORDERED: OSC500T PO (08:26)
[2020-07-24] MEDS ORDERED: ASCO500C17 PO (08:26)
== END 2020-07-24 11:00 | disposition home or self-care (01) ==
LOC: SSTAY O 06:53
PROVIDERS: ATTEND Radiology Vascular & Interventional Radiology
DX: R18.8 Other ascites (principal); K74.60 Unspecified cirrhosis of liver; E87.1 Hypo-osmolality and hyponatremia; E03.9 Hypothyroidism, unspecified; K72.90 Hepatic failure, unspecified without coma; Z79.899 Other long term (current) drug therapy
CPT/HCPCS: 49083; P9047

== ENCOUNTER 2020-07-31 06:52 | Day surgery (SDC) | payer MEDICAID ==
[~2020-07-31] VITALS: Ht 172.7 cm; Wt 74.9 kg
[2020-07-31] VITALS (8 sets, daily range): BP systolic 102–150; BP diastolic 69–82
[~2020-07-31 06:52] MED LIST changes: +ASCO500C17 PO; +CHOL400T57 PO; +FERR-121 PO; +MULT-1085 PO; +OMEP20CA15 PO; +OSC500T PO; +POTA10TA19 PO; +VITA-268 PO; +ZINC220C11 PO
[2020-07-31] MEDS ORDERED: albumin 25% 100mL bottle x 1 IV PRN (07:15)
[2020-07-31] MEDS ORDERED: normal saline 1000ml 1,000 ML IV PRN (07:15)
== END 2020-07-31 11:00 | disposition home or self-care (01) ==
LOC: SSTAY O 06:52
PROVIDERS: ATTEND Radiology Vascular & Interventional Radiology
DX: R18.8 Other ascites (principal); K74.60 Unspecified cirrhosis of liver; E87.1 Hypo-osmolality and hyponatremia; E03.9 Hypothyroidism, unspecified; Z79.899 Other long term (current) drug therapy
CPT/HCPCS: 49083

== ENCOUNTER 2020-08-08 08:51 | Day surgery (SDC) | payer MEDICAID ==
[~2020-08-08] VITALS: Ht 170.2 cm; Wt 76.9 kg
[2020-08-08 09:16] VITALS: BP 107/73
[2020-08-08] MEDS ORDERED: albumin 25% 100mL bottle x 1 IV PRN (09:30)
[2020-08-08] MEDS ORDERED: normal saline 1000ml 1,000 ML IV PRN (09:30)
[2020-08-08 09:45] VITALS: BP 102/73
[2020-08-08 10:00] VITALS: BP 107/73
[2020-08-08 10:15] VITALS: BP 135/77
[2020-08-08 10:30] VITALS: BP 110/78
[2020-08-08 10:45] VITALS: BP 104/72
== END 2020-08-08 11:00 | disposition home or self-care (01) ==
LOC: SSTAY O 08:51
PROVIDERS: ATTEND Radiology Vascular & Interventional Radiology
DX: R18.8 Other ascites (principal); E87.1 Hypo-osmolality and hyponatremia; E03.9 Hypothyroidism, unspecified; K72.90 Hepatic failure, unspecified without coma; K74.60 Unspecified cirrhosis of liver; Z79.899 Other long term (current) drug therapy
CPT/HCPCS: 49083

== ENCOUNTER 2020-08-15 08:28 | Day surgery (SDC) | payer MEDICAID ==
[2020-08-15] VITALS (7 sets, daily range): BP systolic 109–114; BP diastolic 63–75
== END 2020-08-15 11:00 | disposition home or self-care (01) ==
LOC: SSTAY O 08:28
PROVIDERS: ATTEND Radiology Vascular & Interventional Radiology
DX: R18.8 Other ascites (principal); E87.1 Hypo-osmolality and hyponatremia; E03.9 Hypothyroidism, unspecified; K72.90 Hepatic failure, unspecified without coma; K74.60 Unspecified cirrhosis of liver; Z79.899 Other long term (current) drug therapy
CPT/HCPCS: 49083

== ENCOUNTER 2020-08-21 08:55 | Day surgery (SDC) | payer MEDICAID ==
[~2020-08-21] VITALS: Ht 172.7 cm; Wt 76.9 kg
[2020-08-21 09:25] VITALS: BP 117/45
[2020-08-21] MEDS ORDERED: albumin 25% 100mL bottle x 1 IV PRN (09:30)
[2020-08-21 10:30] VITALS: BP 121/62
[2020-08-21 10:45] VITALS: BP 98/66
[2020-08-21 11:00] VITALS: BP 99/61
[2020-08-21 11:15] VITALS: BP 102/60
[2020-08-21 11:30] VITALS: BP 104/62
== END 2020-08-21 11:45 | disposition home or self-care (01) ==
LOC: SSTAY O 08:55
PROVIDERS: ATTEND Radiology Vascular & Interventional Radiology
DX: R18.8 Other ascites (principal); E87.1 Hypo-osmolality and hyponatremia; E03.9 Hypothyroidism, unspecified; K72.90 Hepatic failure, unspecified without coma; K74.60 Unspecified cirrhosis of liver; Z79.899 Other long term (current) drug therapy
CPT/HCPCS: 49083

== ENCOUNTER 2020-08-29 08:09 | Day surgery (SDC) | payer MEDICAID ==
[~2020-08-29] VITALS: Ht 172.7 cm; Wt 73.4 kg
[2020-08-29 08:00] VITALS: BP_SYST 125; BP_SYST 135; BP_DIAS 76; BP_DIAS 97
[2020-08-29] MEDS ORDERED: albumin 25% 100mL bottle x 1 IV PRN (08:35)
[2020-08-29 10:00] VITALS: BP 128/74
== END 2020-08-29 11:31 | disposition home or self-care (01) ==
LOC: SSTAY O 08:09
PROVIDERS: ATTEND Radiology Vascular & Interventional Radiology
DX: R18.8 Other ascites (principal); K74.60 Unspecified cirrhosis of liver; E87.1 Hypo-osmolality and hyponatremia; E03.9 Hypothyroidism, unspecified; K72.90 Hepatic failure, unspecified without coma; Z79.899 Other long term (current) drug therapy
CPT/HCPCS: 49083; 76705

== ENCOUNTER 2020-09-05 08:21 | Day surgery (SDC) | payer MEDICAID ==
[~2020-09-05] VITALS: Ht 172.7 cm; Wt 77.2 kg
[~2020-09-05 08:21] MED LIST changes: -FERR-121 PO
[2020-09-05] MEDS ORDERED: albumin 25% 100mL bottle x 1 IV PRN (08:45)
[2020-09-05] MEDS ORDERED: normal saline 1000ml 1,000 ML IV PRN (08:45)
[2020-09-05 09:15] VITALS: BP 119/73
[2020-09-05 10:22] VITALS: BP 120/72
[2020-09-05 10:32] VITALS: BP 118/83
[2020-09-05 10:46] VITALS: BP 108/73
[2020-09-05 11:00] VITALS: BP 130/74
[2020-09-05 11:20] VITALS: BP 104/74
== END 2020-09-05 11:25 | disposition home or self-care (01) ==
LOC: SSTAY O 08:21
PROVIDERS: ATTEND Radiology Diagnostic Radiology
DX: R18.8 Other ascites (principal); K74.60 Unspecified cirrhosis of liver; E87.1 Hypo-osmolality and hyponatremia; E03.9 Hypothyroidism, unspecified; K72.90 Hepatic failure, unspecified without coma; Z79.899 Other long term (current) drug therapy
CPT/HCPCS: 49083

== ENCOUNTER 2020-09-06 14:16 | Emergency (ER) | payer MEDICAID ==
[~2020-09-06] VITALS: Ht 165.1 cm; Wt 70.0 kg
[2020-09-06 16:13] LABS: BASOPHILS # (AUTO) 0.1 X10'3 (0-0.2); BASOPHILS % (AUTO) 1.5 % (0-1); HEMOGLOBIN 13.7 g/dl (12.0-16.0); LYMPHOCYTES # (AUTO) 0.8 X10'3 (1.1-4.8); LYMPHOCYTES % (AUTO) 21.6 % (21-51); MEAN CORPUSCULAR HEMOGLOBIN 34.1 PG (27.0-31.0); MEAN CORPUSCULAR HGB CONC 34.2 g/dL (33.0-36.5); MEAN CORPUSCULAR VOLUME 99.5 FL (78-98); MEAN PLATELET VOLUME 6.4 FL (7.4-10.4); MONOCYTES # (AUTO) 0.7 X10'3 (0-0.9); MONOCYTES % (AUTO) 18.3 % (2-12); NEUTROPHILS # (AUTO) 2.2 X10'3 (1.8-7.7); NEUTROPHILS % (AUTO) 57.6 % (42-75); PLATELET COUNT 132 X10'3 (140-440); RED BLOOD COUNT 4.02 X10'6 (4.20-5.60); RED CELL DISTRIBUTION WIDTH 13.6 % (11.5-14.5); WHITE BLOOD COUNT 3.7 X10'3 (4.5-11.0)
[2020-09-06 16:27] LABS: ALANINE AMINOTRANSFERASE 62 U/L (12-78); ALBUMIN 2.7 G/DL (3.4-5.0); ALBUMIN/GLOBULIN RATIO 0.8 (1.1-1.5); ALKALINE PHOSPHATASE 188 IU/L (46-116); ANION GAP 12 (8-16); ASPARTATE AMINO TRANSFERASE 174 U/L (10-37); BILIRUBIN,TOTAL 2.1 MG/DL (0.1-1.0); BLOOD UREA NITROGEN 8 MG/DL (7-18); BUN/CREATININE RATIO 15.4 (6.6-38.0); CALCIUM 8.3 MG/DL (8.5-10.1); CHLORIDE 99 MMOL/L (99-107); CREATININE 0.52 MG/DL (0.40-0.90); GLUCOSE 142 MG/DL (70-104); POTASSIUM 3.8 MMOL/L (3.5-5.1); SODIUM 134 MMOL/L (135-145); TOTAL CARBON DIOXIDE 23.5 MMOL/L (24-32); TOTAL PROTEIN 6.3 G/DL (6.4-8.2); eGFR > 90 ML/MIN
[2020-09-06 16:28] LABS: PARTIAL THROMBOPLASTIN TIME 29 SECONDS (22-32)
[2020-09-06 20:54] LABS: BFAPPEAR CLOUDY
[2020-09-06 20:55] LABS: BF MESOTHELIAL CELLS MODERATE; BF RBC COUNT 1098 /CU MM; BF WBC COUNT 128 /CU MM (0-1000); BFCOLOR YELLOW; BFVOLUME 1100 ML; LYMPHOCYTES,BODY FLUID 45 %; MONOCYTES,BODY FLUID 43 %; NEUTROPHILS,BODY FLUID 12 %
[2020-09-06 21:14] VITALS: BP 122/77
== END 2020-09-06 21:17 | disposition home or self-care (01) ==
LOC: ER 14:17
DX: K70.31 Alcoholic cirrhosis of liver with ascites (principal); F10.10 Alcohol abuse, uncomplicated; Z59.0 Homelessness; Z56.0 Unemployment, unspecified; Z79.01 Long term (current) use of anticoagulants; Z79.899 Other long term (current) drug therapy; Y90.0 Blood alcohol level of less than 20 mg/100 ml
CPT/HCPCS: 49083; 80053; 84145; 85025; 85610; 85730; 89051; 92950; 99285

== ENCOUNTER 2020-09-12 07:32 | Day surgery (SDC) | payer MEDICAID ==
[~2020-09-12] VITALS: Ht 172.7 cm; Wt 70.0 kg
[2020-09-12] MEDS ORDERED: albumin 25% 100mL bottle x 1 IV PRN (08:00)
== END 2020-09-12 09:15 | disposition home or self-care (01) ==
LOC: SSTAY O 07:32
PROVIDERS: ATTEND Radiology Vascular & Interventional Radiology
DX: R18.8 Other ascites (principal); K74.60 Unspecified cirrhosis of liver; E03.9 Hypothyroidism, unspecified; K72.90 Hepatic failure, unspecified without coma; E87.1 Hypo-osmolality and hyponatremia; Z79.899 Other long term (current) drug therapy
CPT/HCPCS: 76705

== ENCOUNTER 2020-09-16 08:48 | Day surgery (SDC) | payer MEDICAID ==
[~2020-09-16] VITALS: Ht 172.7 cm; Wt 72.7 kg
[2020-09-16 08:55] VITALS: BP 122/73
[2020-09-16] MEDS ORDERED: HYDR-3965 PO (09:05)
[2020-09-16] MEDS ORDERED: albumin 25% 100mL bottle x 1 IV PRN (09:10)
--- NOTE | 2020-09-16 09:55 | NUR ---
Procedure cancelled per Wes CORTEZ.
== END 2020-09-16 10:30 | disposition home or self-care (01) ==
LOC: SSTAY O 08:48
PROVIDERS: ATTEND Radiology Diagnostic Radiology
DX: R18.8 Other ascites (principal); R14.0 Abdominal distension (gaseous); K74.60 Unspecified cirrhosis of liver; E87.1 Hypo-osmolality and hyponatremia; E03.9 Hypothyroidism, unspecified; K72.90 Hepatic failure, unspecified without coma; Z79.899 Other long term (current) drug therapy
CPT/HCPCS: 76604; 76705

== ENCOUNTER 2020-09-19 07:47 | Emergency (ER) | payer MEDICAID ==
[~2020-09-19] VITALS: Ht 172.7 cm; Wt 71.8 kg
[~2020-09-19 07:47] MED LIST changes: +HYDR-3965 PO
[2020-09-19 08:36] LABS: BASOPHILS % (AUTO) 0.8 % (0-1); EOSINOPHILS # (AUTO) 0.1 X10'3 (0-0.9); EOSINOPHILS % (AUTO) 2.7 % (0-6); HEMATOCRIT 40.1 % (35.0-45.0); HEMOGLOBIN 13.7 g/dl (12.0-16.0); LYMPHOCYTES # (AUTO) 0.8 X10'3 (1.1-4.8); LYMPHOCYTES % (AUTO) 22.1 % (21-51); MEAN CORPUSCULAR HEMOGLOBIN 33.9 PG (27.0-31.0); MEAN CORPUSCULAR HGB CONC 34.1 g/dL (33.0-36.5); MEAN CORPUSCULAR VOLUME 99.5 FL (78-98); MEAN PLATELET VOLUME 6.4 FL (7.4-10.4); MONOCYTES # (AUTO) 0.6 X10'3 (0-0.9); MONOCYTES % (AUTO) 17.4 % (2-12); NEUTROPHILS # (AUTO) 2.1 X10'3 (1.8-7.7); PLATELET COUNT 130 X10'3 (140-440); RED BLOOD COUNT 4.03 X10'6 (4.20-5.60); RED CELL DISTRIBUTION WIDTH 13.8 % (11.5-14.5); WHITE BLOOD COUNT 3.6 X10'3 (4.5-11.0)
[2020-09-19 08:50] LABS: ALANINE AMINOTRANSFERASE 56 U/L (12-78); ALBUMIN 2.8 G/DL (3.4-5.0); ALBUMIN/GLOBULIN RATIO 0.8 (1.1-1.5); ALKALINE PHOSPHATASE 182 IU/L (46-116); ANION GAP 6 (8-16); ASPARTATE AMINO TRANSFERASE 150 U/L (10-37); BILIRUBIN,TOTAL 3.2 MG/DL (0.1-1.0); BLOOD UREA NITROGEN 5 MG/DL (7-18); CALCIUM 8.4 MG/DL (8.5-10.1); CHLORIDE 101 MMOL/L (99-107); GLUCOSE 103 MG/DL (70-104); LIPASE 117 U/L (73-393); POTASSIUM 3.6 MMOL/L (3.5-5.1); SODIUM 136 MMOL/L (135-145); TOTAL CARBON DIOXIDE 29.1 MMOL/L (24-32); TOTAL PROTEIN 6.5 G/DL (6.4-8.2); eGFR > 90 ML/MIN
[2020-09-19] MEDS ORDERED: OXYC-658 PO (09:30)
[2020-09-19] MEDS ORDERED: HYDROcodone/acetaminophen 10/325mg tab PO ONE (09:30)
[2020-09-19 09:50] VITALS: BP 118/70
[2020-09-19 10:20] LABS: CLARITY,URINE CLEAR (Clear); COLOR,URINE YELLOW (Yellow); GLUCOSE, URINE NEGATIVE (Neg); KETONES,URINE NEGATIVE (Neg); LEUKOCYTE ESTERASE ,URINE NEGATIVE (Neg); NITRITES, URINE NEGATIVE (Neg); OCCULT BLOOD,URINE NEGATIVE (Neg); PH,URINE 7.5 (4.8-8.0); PROTEIN,URINE NEGATIVE (Neg)
[2020-09-19 10:25] LABS: UA COLLECTION TYPE CLN CATCH MIDSTREAM
== END 2020-09-19 09:52 | disposition home or self-care (01) ==
LOC: ER 07:48
DX: R18.8 Other ascites (principal); R10.84 Generalized abdominal pain; Z98.890 Other specified postprocedural states; Z72.89 Other problems related to lifestyle; Z56.0 Unemployment, unspecified; Z59.0 Homelessness; Z79.899 Other long term (current) drug therapy
CPT/HCPCS: 80053; 81003; 83690; 85025; 99284

== ENCOUNTER 2020-09-22 07:42 | Day surgery (SDC) | payer MEDICAID ==
[~2020-09-22] VITALS: Ht 172.7 cm; Wt 69.9 kg
[~2020-09-22 07:42] MED LIST changes: +OXYC-658 PO
[2020-09-22 07:53] VITALS: BP 113/71
[2020-09-22 09:00] VITALS: BP 117/75
[2020-09-22 09:15] VITALS: BP 124/81
[2020-09-22 09:30] VITALS: BP 111/70
[2020-09-22 09:35] VITALS: BP 96/67
== END 2020-09-22 09:50 | disposition home or self-care (01) ==
LOC: SSTAY O 07:42
PROVIDERS: ATTEND Radiology Vascular & Interventional Radiology
DX: R18.8 Other ascites (principal); K74.60 Unspecified cirrhosis of liver; E87.1 Hypo-osmolality and hyponatremia; E03.9 Hypothyroidism, unspecified; K72.90 Hepatic failure, unspecified without coma; Z79.899 Other long term (current) drug therapy
CPT/HCPCS: 49083

== ENCOUNTER 2020-09-29 08:14 | Day surgery (SDC) | payer MEDICAID ==
[~2020-09-29] VITALS: Ht 172.7 cm; Wt 63.5 kg
[~2020-09-29 08:14] MED LIST changes: -MULT-1085 PO; -ZINC220C11 PO
[2020-09-29] MEDS ORDERED: albumin 25% 100mL bottle x 1 IV PRN (08:30)
[2020-09-29 09:06] VITALS: BP 129/66
== END 2020-09-29 09:20 | disposition home or self-care (01) ==
LOC: SSTAY O 08:14
PROVIDERS: ATTEND Radiology Diagnostic Radiology
DX: R18.8 Other ascites (principal); R14.0 Abdominal distension (gaseous); K74.60 Unspecified cirrhosis of liver; E87.1 Hypo-osmolality and hyponatremia; E03.9 Hypothyroidism, unspecified; K72.90 Hepatic failure, unspecified without coma; Z79.899 Other long term (current) drug therapy
CPT/HCPCS: 76705

== ENCOUNTER 2020-10-05 08:29 | Inpatient (IN) | payer MEDICAID ==
[2020-10-05] VITALS (17 sets, daily range): BP systolic 85–149; BP diastolic 60–92
[~2020-10-05] VITALS: Ht 172.7 cm; Wt 64.9 kg
[2020-10-05] MEDS ORDERED: ondansetron/PF 4mg/2ml inj IV ONE ×2 (09:35→16:58)
[2020-10-05] MEDS ORDERED: normal saline 1000ml 1,000 ML IV ONE (09:35)
[2020-10-05] MEDS ORDERED: morphine 10mg/ml inj. IV ONE (09:35)
[2020-10-05] MEDS ORDERED: iohexol 300mg/ml 100ml inj. ONE (10:08)
[2020-10-05 10:13] LABS: BASOPHILS % (AUTO) 0.6 % (0-1); EOSINOPHILS % (AUTO) 0.2 % (0-6); HEMATOCRIT 42.6 % (35.0-45.0); HEMOGLOBIN 14.6 g/dl (12.0-16.0); LYMPHOCYTES # (AUTO) 0.5 X10'3 (1.1-4.8); LYMPHOCYTES % (AUTO) 11.2 % (21-51); MEAN CORPUSCULAR HEMOGLOBIN 34.2 PG (27.0-31.0); MEAN CORPUSCULAR HGB CONC 34.2 g/dL (33.0-36.5); MEAN CORPUSCULAR VOLUME 99.9 FL (78-98); MEAN PLATELET VOLUME 6.8 FL (7.4-10.4); MONOCYTES # (AUTO) 0.8 X10'3 (0-0.9); MONOCYTES % (AUTO) 19.1 % (2-12); NEUTROPHILS # (AUTO) 2.8 X10'3 (1.8-7.7); NEUTROPHILS % (AUTO) 68.9 % (42-75); PLATELET COUNT 132 X10'3 (140-440); RED BLOOD COUNT 4.27 X10'6 (4.20-5.60); RED CELL DISTRIBUTION WIDTH 14.1 % (11.5-14.5); WHITE BLOOD COUNT 4.1 X10'3 (4.5-11.0)
[2020-10-05 10:26] LABS: ALANINE AMINOTRANSFERASE 65 U/L (12-78); ALBUMIN 3.6 G/DL (3.4-5.0); ALBUMIN/GLOBULIN RATIO 0.9 (1.1-1.5); ALKALINE PHOSPHATASE 241 IU/L (46-116); ANION GAP 13 (8-16); ASPARTATE AMINO TRANSFERASE 165 U/L (10-37); BILIRUBIN,TOTAL 3.5 MG/DL (0.1-1.0); BLOOD UREA NITROGEN 9 MG/DL (7-18); BUN/CREATININE RATIO 12.5 (6.6-38.0); CALCIUM 9.9 MG/DL (8.5-10.1); CHLORIDE 97 MMOL/L (99-107); CREATININE 0.72 MG/DL (0.40-0.90); GLUCOSE 132 MG/DL (70-104); LIPASE 173 U/L (73-393); POTASSIUM 4.1 MMOL/L (3.5-5.1); SODIUM 134 MMOL/L (135-145); TOTAL PROTEIN 7.7 G/DL (6.4-8.2); eGFR 82 ML/MIN
[2020-10-05 10:37] LABS: TOTAL CELLS COUNTED 100
[2020-10-05 10:39] LABS: PLATELET ESTIMATE DECREASED; TEAR DROP CELLS FEW
[2020-10-05] MEDS ORDERED: BUPIVAcaine/PF 2.5 mg/ml (0.25%) 30ml vial ONE (11:01)
--- NOTE | 2020-10-05 11:14 | NUR ---
DR ROCHE HERE AT THE BEDSIDE SPEAKING WITH PATIENT.
[2020-10-05] MEDS ORDERED: midazolam 2 mg/2 ml injection ONE (11:15)
[2020-10-05] MEDS ORDERED: meperidine/PF 25mg/ml syringe IV PRN ×2 (11:25)
[2020-10-05] MEDS ORDERED: proCHLORperazine 10 MG/2 ml inj IV PRN (11:25)
[2020-10-05] MEDS ORDERED: hydrALAZINE 20mg/ml inj. IV PRN (11:25)
[2020-10-05] MEDS ORDERED: normal saline 1000ml 1,000 ML IV SCH (11:25)
[2020-10-05] MEDS ORDERED: morphine 2 MG/ML inj. syringe IV PRN ×3 (11:25→11:55)
[2020-10-05] MEDS ORDERED: ondansetron/PF 4mg/2ml inj IV PRN ×4 (11:25→18:35)
[2020-10-05] MEDS ORDERED: morphine 4 MG/ML inj SYRINge IV PRN (11:25)
[2020-10-05] MEDS ORDERED: labetalol 20mg/4ml (5mg/ml) syringe IV PRN (11:25)
[2020-10-05] MEDS ORDERED: magnesium Cl slow-release 64mg tablet PO PRN (11:55)
[2020-10-05] MEDS ORDERED: acetaminophen 650mg rectal suppository RC PRN (11:55)
[2020-10-05] MEDS ORDERED: potassium CL 10mEq/100ml bag 100 ML IV PRN ×2 (11:55)
[2020-10-05] MEDS ORDERED: acetaminophen 325mg tablet PO PRN (11:55)
[2020-10-05] MEDS ORDERED: magnesium 4gm in 100ml NS 100 ML IV PRN (11:55)
[2020-10-05] MEDS ORDERED: potassium Cl 20 mEq SR tablet PO PRN ×2 (11:55)
[2020-10-05] MEDS ORDERED: magnesium 2GM in 50ml NS 50 ML IV PRN (11:55)
[2020-10-05] MEDS ORDERED: ondansetron 4mg rapidly disintigrating tab PO PRN (12:00)
[2020-10-05] MEDS ORDERED: fentaNYL /PF 50mcg/ml 5ml ampule ONE (12:07)
[2020-10-05] MEDS ORDERED: UBID100C16 PO (14:10)
--- NOTE | 2020-10-05 14:14 | NUR ---
TC REPORT TO RECOVERY ROOM NURSE. PATIENT'S BELONGINGS WILL BE KEPT IN ER AND TAKEN TO PATIENT'S INPATIENT ROOM LATER TODAY.
[2020-10-05] MEDS ORDERED: famotidine/PF 10 mg/ml inj IV ONE (15:32)
[2020-10-05] MEDS ORDERED: LIDOcaine 2% 5ml jelly MM ONE (15:40)
[2020-10-05] MEDS ORDERED: LIDOcaine 2% (20mg/ml) 5ml vial SQ ONE (15:55)
[2020-10-05] MEDS ORDERED: propofol 10mg/ml 20ml vial IV ONE (15:55)
[2020-10-05] MEDS ORDERED: rocuronium 10mg/ml inj IV ONE (15:55)
[2020-10-05] MEDS ORDERED: ceFOXitin 1000 MG inj IV ONE ×2 (16:01)
[2020-10-05] MEDS ORDERED: dexamethasone sod phosphate 4mg/ml inj. IV ONE (16:58)
[2020-10-05] MEDS ORDERED: glycopyrrolate 0.2mg/ml inj IV ONE (18:08)
[2020-10-05] MEDS ORDERED: neostigmine methylsulfate 1 MG/ML 10ml vial IV ONE (18:08)
[2020-10-05] MEDS ORDERED: morphine 4 MG/ML inj SYRINge IV ONE (18:31)
--- NOTE | 2020-10-05 18:34 | NUR ---
RECEIVED FROM OR VIA BED ACCOMPANIED BY ANESTHESIOLOGIST DR COON, REPORT GIVEN. PT DROWSY BUT AROUSES WITH A COMPLAINT OF PAIN AT A LEVEL 10. 20 GAUGE PIV L AC PATENT AND RUNNING LR AT 100 ML/HR. LARGE BANDAID DRESSINGS X 4 TO ABD CDI. PPULSES PALPABLE, BRISK CAP REFILL, SKIN PINK AND WARM, NUNEZ, VSS, SCDS APPLIED
[2020-10-05] MEDS: meperidine/PF 25mg/ml syringe IV PRN ×2 (18:48→19:18)
[2020-10-05] MEDS ORDERED: heparin, porcine 5000 units/ml vial SQ SCH ×2 (20:00)
[2020-10-05] MEDS: K and/or MAG REPLACEMENT MC SCH (20:00)
--- NOTE | 2020-10-05 20:00 | NUR ---
RECEIVED PT FROM RECOVERY ROOM VIA HOSPITAL BED FOLLOWING VERBAL REPORT FROM
--- NOTE | 2020-10-05 20:04 | NUR ---
TRANSPORTED VIA BED WITH OHTF ACCOMPANIED BY MYSELF, REPORT GIVEN. PT DROWSY BUT AROUSES WITH A COMPLAINT OF PAIN AT A LEVEL 5. 20 GAUGE PIV L AC PATENT AND RUNNING LR AT 100 ML/HR. LARGE BANDAID DRESSINGS X 4 TO ABD CDI. PPULSES PALPABLE, BRISK CAP REFILL, SKIN PINK AND WARM, NUNEZ, VSS, SCDS APPLIED, LEFT IN CARE OF MARLEN RN
[2020-10-05] MEDS: normal saline 1000ml 1,000 ML IV SCH (20:20)
[2020-10-05] MEDS: ceFAZolin/D5W- 1GM premix 50 ML IV SCH (23:46)
[2020-10-06 02:15] VITALS: BP 125/80
--- NOTE | 2020-10-06 04:13 | NUR ---
PT UP TO BSC X 1 ASSIST TO ATTEMPT TO VOID. PT UNABLE, DENIES ANY URGE TO VOID. BLADDER SCANNED FOR 255 ML PT WOULD LIKE TO WAIT TO SEE IF SHE CAN VOID INDEPENDENTLY. PT STATES +FLATUS.
[2020-10-06 06:00] VITALS: BP 130/81
--- NOTE | 2020-10-06 06:21 | NUR ---
Patient in room ORTHO 4020A. I have received report from BENJAMIN MCCARTY and had the opportunity to ask questions and assume patient care.
--- NOTE | 2020-10-06 06:32 | NUR ---
Problems reprioritized. Patient report given, questions answered & plan of care reviewed with
[2020-10-06] MEDS: K and/or MAG REPLACEMENT MC SCH ×2 (08:00→19:31)
[2020-10-06] MEDS: normal saline 1000ml 1,000 ML IV SCH (08:00)
[2020-10-06] MEDS: pantoprazole 40mg Tablet.DR PO SCH (08:33)
[2020-10-06] MEDS: HYDROcodone/acetaminophen 10/325mg tab PO PRN ×3 (08:33→19:21)
[2020-10-06] MEDS: ceFAZolin/D5W- 1GM premix 50 ML IV SCH ×2 (08:34→15:50)
[2020-10-06] MEDS ORDERED: CHOL100046 PO (09:51)
[2020-10-06] MEDS ORDERED: ASCO500C16 PO (09:51)
[2020-10-06] MEDS ORDERED: CALC500T79 PO (09:51)
[2020-10-06 10:00] VITALS: BP 126/78
--- NOTE | 2020-10-06 15:54 | NUR ---
PT WAS FEELING LIKE SHE HADN'T EMPTIED HER BLADDER FULLY AFTER URINATING. BLADDER SCAN SHOWED 21 ML IN BLADDER. I REASSURED PT THAT SHE WAS EMPTYING HER BLADDER FULLY.
[2020-10-06] MEDS: lactulose 20gm/30ml cup PO SCH ×2 (17:32→21:15)
[2020-10-06 18:00] VITALS: BP 111/67
--- NOTE | 2020-10-06 18:15 | NUR ---
Patient in room ORTHO 4020. I have received report from BENJAMIN Redd and had the opportunity to ask questions and assume patient care.
--- NOTE | 2020-10-06 18:17 | NUR ---
Problems reprioritized. Patient report given, questions answered & plan of care reviewed with BENJAMIN ELIAS.
[2020-10-06] MEDS: rifaximin 550mg tablet PO SCH (19:20)
[2020-10-06] MEDS: spironolactone 50 MG tablet PO SCH (19:20)
[2020-10-06] MEDS: gabapentin 100mg capsule PO SCH (19:21)
[2020-10-07] MEDS: HYDROcodone/acetaminophen 10/325mg tab PO PRN ×2 (02:36→09:36)
[2020-10-07 06:00] VITALS: BP 126/75
--- NOTE | 2020-10-07 06:25 | NUR ---
Problems reprioritized. Patient report given, questions answered & plan of care reviewed with BENJAMIN Arciniega.
[2020-10-07] MEDS: gabapentin 100mg capsule PO SCH (07:27)
[2020-10-07] MEDS: pantoprazole 40mg Tablet.DR PO SCH (07:27)
[2020-10-07] MEDS: spironolactone 50 MG tablet PO SCH (07:28)
[2020-10-07] MEDS: rifaximin 550mg tablet PO SCH (07:28)
[2020-10-07] MEDS: potassium Cl 20 mEq SR tablet PO SCH ×3 (07:28→07:39)
[2020-10-07] MEDS: lactulose 20gm/30ml cup PO SCH (07:28)
[2020-10-07] MEDS: K and/or MAG REPLACEMENT MC SCH (07:34)
[2020-10-07] MEDS ORDERED: vitamin B comp w/Vit. C tab 1 TAB TABLET PO SCH (08:00)
[2020-10-07] MEDS ORDERED: non-formulary drug (Omeprazole 1 CAP) PO SCH (08:00)
[2020-10-07] MEDS ORDERED: levoTHYROXINE 25mcg tablet PO SCH (08:00)
[2020-10-07] MEDS ORDERED: furosemide 40mg tablet PO SCH (08:00)
[2020-10-07] MEDS ORDERED: UBIDECARENONE 100 MG PO SCH (08:00)
[2020-10-07] MEDS ORDERED: calcium carbonate 500mg tablet PO SCH (08:00)
[2020-10-07] MEDS ORDERED: ascorbic acid 500mg tablet PO SCH (08:00)
[2020-10-07] MEDS ORDERED: HYDR-4383 PO (09:52)
[2020-10-07 10:00] VITALS: BP 114/71
--- NOTE | 2020-10-07 11:53 | NUR ---
Patient ready for discharge, PIV removed, cannula intact. Prescription for narcotics given to patient. All belongings gathered and ready for patient. Discharge instructions reviewed and given to patient. Awaiting a ride home.
== END 2020-10-07 12:10 | disposition home health service (06) | DRG 227 ==
LOC: ER 08:30 → ED HOLD 11:53 → PACU 17:50 → ORTHO 4S 20:00
PROVIDERS: ADMIT Internal Medicine; ATTEND Internal Medicine
PROC: 8E0W4CZ Robotic Assisted Procedure of Trunk Region, Percutaneous Endoscopic Approach (ICD-10-PCS; 2020-10-05)
PROC: 0WUF4JZ Supplement Abdominal Wall with Synthetic Substitute, Percutaneous Endoscopic Approach (ICD-10-PCS; principal; 2020-10-05 15:26)
DX: K43.6 Other and unspecified ventral hernia with obstruction, without gangrene (principal); K74.69 Other cirrhosis of liver; D63.8 Anemia in other chronic diseases classified elsewhere; E03.9 Hypothyroidism, unspecified; K76.6 Portal hypertension; M85.80 Other specified disorders of bone density and structure, unspecified site; N28.1 Cyst of kidney, acquired; R18.8 Other ascites; E87.2 Acidosis; Z20.828 Contact with and (suspected) exposure to other viral communicable diseases
CPT/HCPCS: 36415; 74177; 76857; 80053; 83605; 83690; 83735; 85007; 85025; 85610; 86885; 86900; 86901; 86920; 87081; 87635; 93005; 96361; 96374; 96375; 99285; A4215; A4618; C1758; C1781; C9803; G0378; J0690; J0694; J1100; J2001; J2175; J2250; J2270; J2405; J2704; J2710; J3010; J3490; J7030; J7120; Q9967

== ENCOUNTER 2020-10-17 07:56 | Day surgery (SDC) | payer MEDICAID ==
[~2020-10-17] VITALS: Ht 172.7 cm; Wt 68.8 kg
[~2020-10-17 07:56] MED LIST changes: +ASCO500C16 PO; -ASCO500C17 PO; +CALC500T79 PO; +CHOL100046 PO; -CHOL400T57 PO; -HYDR-3965 PO; +HYDR-4383 PO; -OSC500T PO; -OXYC-658 PO; +UBID100C16 PO
[2020-10-17] MEDS ORDERED: albumin 25% 100mL bottle x 1 IV PRN (08:20)
[2020-10-17 08:30] VITALS: BP 105/63
[2020-10-17 09:30] VITALS: BP 105/75
--- NOTE | 2020-10-17 09:30 | NUR ---
US REVEALED INSUFFICIENT FLUID FOR PARACENTESIS. Addendum: 10/17/20 at 0954 by Jaclyn Milton RN Amended: Links added.
== END 2020-10-17 09:30 | disposition home or self-care (01) ==
LOC: SSTAY O 07:56
PROVIDERS: ATTEND Radiology Vascular & Interventional Radiology
DX: R18.8 Other ascites (principal); K74.60 Unspecified cirrhosis of liver; E87.1 Hypo-osmolality and hyponatremia; E03.9 Hypothyroidism, unspecified; K72.90 Hepatic failure, unspecified without coma; Z98.890 Other specified postprocedural states; Z79.899 Other long term (current) drug therapy
CPT/HCPCS: 76705

== ENCOUNTER 2020-10-30 07:09 | Day surgery (SDC) | payer MEDICAID ==
[~2020-10-30] VITALS: Ht 172.7 cm; Wt 70.9 kg
[2020-10-30 07:33] VITALS: BP 154/73
[2020-10-30] MEDS ORDERED: albumin 25% 100mL bottle x 1 IV PRN (07:45)
[2020-10-30 09:00] VITALS: BP 127/90
[2020-10-30 09:15] VITALS: BP 113/44
[2020-10-30 09:30] VITALS: BP 103/70
[2020-10-30 09:45] VITALS: BP 101/66
== END 2020-10-30 10:00 | disposition home or self-care (01) ==
LOC: SSTAY O 07:09
PROVIDERS: ATTEND Radiology Vascular & Interventional Radiology
DX: K70.31 Alcoholic cirrhosis of liver with ascites (principal); E03.9 Hypothyroidism, unspecified; Z98.890 Other specified postprocedural states; Z79.899 Other long term (current) drug therapy
CPT/HCPCS: 49083

== ENCOUNTER 2020-11-10 07:28 | Day surgery (SDC) | payer MEDICAID ==
[~2020-11-10] VITALS: Ht 172.7 cm; Wt 64.9 kg
[~2020-11-10 07:28] MED LIST changes: -HYDR-4383 PO; -OMEP20CA15 PO; -UBID100C16 PO
[2020-11-10] MEDS ORDERED: albumin 25% 100mL bottle x 1 IV PRN (07:55)
[2020-11-10 08:16] VITALS: BP 98/61
[2020-11-10 08:17] VITALS: BP 98/61
[2020-11-10 10:00] VITALS: BP 130/75
== END 2020-11-10 10:00 | disposition home or self-care (01) ==
LOC: SSTAY O 07:28
PROVIDERS: ATTEND Radiology Diagnostic Radiology
DX: R18.8 Other ascites (principal); K74.60 Unspecified cirrhosis of liver; E87.1 Hypo-osmolality and hyponatremia; E03.9 Hypothyroidism, unspecified; K72.90 Hepatic failure, unspecified without coma; Z98.890 Other specified postprocedural states; Z79.899 Other long term (current) drug therapy
CPT/HCPCS: 76705

== ENCOUNTER 2020-11-20 06:59 | Day surgery (SDC) | payer MEDICAID ==
[~2020-11-20] VITALS: Ht 172.7 cm; Wt 75.0 kg
[2020-11-20] MEDS ORDERED: albumin 25% 100mL bottle x 1 IV PRN (07:15)
[2020-11-20 07:37] VITALS: BP 111/70
[2020-11-20 08:15] VITALS: BP 125/79
[2020-11-20 08:30] VITALS: BP 117/72
[2020-11-20 08:42] VITALS: BP 116/73
[2020-11-20 08:43] VITALS: BP 116/73
[2020-11-20 08:45] VITALS: BP 117/68
== END 2020-11-20 09:15 | disposition home or self-care (01) ==
LOC: SSTAY O 06:59
PROVIDERS: ATTEND Radiology Diagnostic Radiology
DX: R18.8 Other ascites (principal); K74.60 Unspecified cirrhosis of liver; E87.1 Hypo-osmolality and hyponatremia; E03.9 Hypothyroidism, unspecified; K72.90 Hepatic failure, unspecified without coma; Z98.890 Other specified postprocedural states; Z79.899 Other long term (current) drug therapy
CPT/HCPCS: 49083

== ENCOUNTER 2020-11-28 07:05 | Day surgery (SDC) | payer MEDICAID ==
[~2020-11-28] VITALS: Ht 172.7 cm; Wt 74.0 kg
[2020-11-28] VITALS (7 sets, daily range): BP systolic 103–137; BP diastolic 66–82
[2020-11-28] MEDS ORDERED: albumin 25% 100mL bottle x 1 IV PRN (07:30)
== END 2020-11-28 09:50 | disposition home or self-care (01) ==
LOC: SSTAY O 07:05
PROVIDERS: ATTEND Radiology Diagnostic Radiology
DX: R18.8 Other ascites (principal); K74.60 Unspecified cirrhosis of liver; E87.1 Hypo-osmolality and hyponatremia; E03.9 Hypothyroidism, unspecified; K72.90 Hepatic failure, unspecified without coma; Z98.890 Other specified postprocedural states; Z79.899 Other long term (current) drug therapy
CPT/HCPCS: 49083

== ENCOUNTER 2020-12-05 08:20 | Day surgery (SDC) | payer MEDICAID ==
[~2020-12-05] VITALS: Ht 172.7 cm; Wt 70.0 kg
[2020-12-05] MEDS ORDERED: albumin 25% 100mL bottle x 1 IV PRN (08:45)
[2020-12-05 09:45] VITALS: BP 128/78
== END 2020-12-05 09:15 | disposition home or self-care (01) ==
LOC: SSTAY O 08:20
PROVIDERS: ATTEND Radiology Diagnostic Radiology
DX: R18.8 Other ascites (principal); R14.0 Abdominal distension (gaseous); K74.60 Unspecified cirrhosis of liver; E87.1 Hypo-osmolality and hyponatremia; E03.9 Hypothyroidism, unspecified; K72.90 Hepatic failure, unspecified without coma; Z98.890 Other specified postprocedural states; Z79.899 Other long term (current) drug therapy
CPT/HCPCS: 76705

== ENCOUNTER 2020-12-09 08:28 | Day surgery (SDC) | payer MEDICAID ==
[~2020-12-09] VITALS: Ht 172.7 cm; Wt 73.8 kg
[2020-12-09 08:51] VITALS: BP 93/61
[2020-12-09] MEDS ORDERED: albumin 25% 100mL bottle x 1 IV PRN (08:55)
[2020-12-09 09:15] VITALS: BP 106/67
[2020-12-09 09:30] VITALS: BP 95/57
[2020-12-09 10:05] VITALS: BP 91/59
== END 2020-12-09 10:05 | disposition home or self-care (01) ==
LOC: SSTAY O 08:28
PROVIDERS: ATTEND Radiology Vascular & Interventional Radiology
DX: R18.8 Other ascites (principal); K74.60 Unspecified cirrhosis of liver; E87.1 Hypo-osmolality and hyponatremia; E03.9 Hypothyroidism, unspecified; K72.90 Hepatic failure, unspecified without coma; Z98.890 Other specified postprocedural states; Z79.899 Other long term (current) drug therapy
CPT/HCPCS: 49083